=== PATIENT | female | born 1945 | race Caucasian/White ===

== ENCOUNTER 2017-03-16 17:16 | Observation (INO) ==
[2017-03-16] MEDS ORDERED: 0.9 % Sodium Chloride 1,000 ML IVC ONE (17:35)
--- NOTE | 2017-03-16 17:59 | Emergency Department Note ---
Disposition Clinical Impression: SOB (shortness of breath), Squamous cell carcinoma of left lung Disposition: Admitted As Inpatient Condition: Good General Adult HPI - General Chief complaint: ED Shortness of Breath/Dyspnea Stated complaint: "not breathing right" Time Seen by Provider: 03/16/17 17:22 Source: patient Mode of arrival: ambulatory Limitations: no limitations Nursing Notes Reviewed: Yes Vital Signs Reviewed: Yes - History of Present Illness HPI Narrative: 71-year-old female past medical history of lung cancer which is being managed by chemotherapy reports the emergency department for a 3 day history of having shortness of breath on exertion. Patient states that every time she takes a deep breath she feels a flutter in her chest. Patient denies being on any blood thinners. Patient denies having any recent surgeries. Patient denies any recent travel. Patient denies any history of blood clots, pain or swelling in her calves Pain Scale: 5 - Related Data Home Medications Medication Instructions Recorded Confirmed Acetaminophen [Tylenol] 500 mg PO Q6HR PRN 09/03/15 03/16/17 Aspirin 325 mg PO DAILY 09/03/15 03/16/17 Latanoprost [Xalatan] 1 drop RIGHT EYE HS 09/03/15 03/16/17 Previous Rx's Medication Instructions Recorded Loperamide [Imodium] 2 mg PO Q4HR PRN #90 capsule 10/28/16 Ondansetron [Zofran] 8 mg PO Q8HR PRN #90 tablet 10/28/16 OxyCODONE Immed Rel [Roxicodone 5 5 mg PO Q12H PRN #60 tablet 01/20/17 MG] LORazepam [Ativan] 0.5 mg PO AD PRN #2 tablet 02/08/17 Dexamethasone [Decadron] 4 mg PO BID #36 tab 03/03/17 Prochlorperazine Maleate 10 mg PO Q8HR PRN #90 tablet 03/03/17 [Compazine] Allergies Allergy/AdvReac Type Severity Reaction Status Date / Time Penicillins Allergy Hives Verified 03/16/17 17:20 Sulfa (Sulfonamide Allergy Hives Verified 03/16/17 17:20 Antibiotics) eggs Allergy See Uncoded 03/16/17 17:20 Comments dairy products AdvReac Flatulence Uncoded 03/16/17 17:20 All systems ED: reviewed and negative except as stated. Review of Systems: As Per HPI Constitutional: Denies: fever Cardiovascular: Reports: palpitations, dyspnea on exertion. Denies: chest pain Respiratory: Reports: dyspnea. Denies: cough, hemoptysis Genitourinary: Denies: urgency Musculoskeletal: Denies: back pain Integumentary: Denies: rash Neurological: Denies: headache Psychiatric: Reports: anxiety Past Medical History - Past Medical History Medical history: Reports: arthritis, cancer, GERD, migraine, other Psychiatric history: Reports: anxiety, depression, panic disorder - Social History Smoking Status: Current every day smoker Smokeless Tobacco Status: No Alcohol use: Reports: none Drug use: Reports: none Physical Exam General: Well Appearing 71-year-old female, in no acute distress, laughing, appearing pleasant Head: autraumatic, EOMI, no conjuncitval pallor, no scleral icterus, Mouth: oral mucous membranes moist Neck: neck soft, trachea midline Chest:: Equal chest wall rise Lungs: Normal lungs sounds bilaterally, no wheezes, no respiratory distress Heart: normal heart sounds, tachycardic rate and normal rhythm, Abdomen: soft, non-tender, no rigidity, no guarding, no rebdound tenderness Lower Extremities: no pedal edema, calves non-tender Integumentary: Skin warm, dry, and intact Neuro: Alert Psych: normal affect, normal mood - General Limitations: no limitations General appearance: alert, in no apparent distress Course Vital Signs Temperature 98.0 F 03/16/17 17:17 Pulse Rate 111 03/16/17 17:17 Respiratory Rate 18 03/16/17 17:17 Blood Pressure 112/62 03/16/17 17:17 O2 Sat by Pulse Oximetry 99 03/16/17 17:17 Temperature 98.5 F 03/17/17 07:33 Pulse Rate 85 03/17/17 07:33 Respiratory Rate 16 03/17/17 07:33 Blood Pressure 145/78 03/17/17 07:33 O2 Sat by Pulse Oximetry 97 03/17/17 07:41 Oxygen Delivery Oxygen Delivery Room Air Medical Decision Making - MDM Narrative Medical decision making narrative: 71-year-old female with past medical history of squamous cell carcinoma of the lung that is being managed by chemotherapy this is the emergency department with shortness of breath and tachycardia that was initially concerning for pulmonary embolus. CTA of the chest was obtained and did not reveal a pulmonary embolus however, CTA revealed evidence that her current lung carcinoma extended into the left hilum and obstructed several of the left upper lobe pulmonary arteries in the left upper lobe bronchus. Cardiothoracic surgery was called, and Dr. Reyes stated that this patient would not be a surgical candidate at this time as this is an unresectable tumor. Dr. Cano, the oncologist typing section chief was also consulted regarding the case. He stated that these findings are normal in the case of lung cancer and that he does not anticipate any need for acute interventions at this time. He did state it was reasonable to admit this patient to the hospital for observation overnight and that he and the oncology team will come by and see her in the morning. I admitted this patient to the hospitalist Dr. Eaton and he agreed to accept the admission of this patient. I discussed the plan with the patient and she agreed to be admitted. Patient was hemodynamically stable and not in any acute distress at time of discharge. Oxygen saturation was 97% on room air throughout her entire stay. Pulse was 93 at time of admission. Chest X-Ray 03/16/17 17:31 IMPRESSION: Left lung opacity is suspicious for atelectasis. Nodular densities of the left lung likely reflective of pulmonary nodules as seen on prior CT. D/ / 03/16/2017 18:02:06 Ernst Bryant MD / rose marie Interpreting Provider: Ernst Bryant MD Chest CTA 03/16/17 17:32 IMPRESSION: No evidence of pulmonary embolism. Stable large left upper lobe mass compatible with known lung carcinoma. The mass extends into the left hilum and obstructs several of the left upper lobe pulmonary arteries and the left upper lobe bronchus. Stable spiculated metastases within the remaining portion of the left lung. Stable small left effusion. D/ / 03/16/2017 19:36:56 Mack Fischer MD / rose marie Interpreting Provider: Mack Fischer MD Vital Signs Temperature 98.0 F 03/16/17 17:17 Pulse Rate 111 03/16/17 17:17 Respiratory Rate 18 03/16/17 17:17 Blood Pressure 112/62 03/16/17 17:17 O2 Sat by Pulse Oximetry 99 03/16/17 17:17 Temperature 98.4 F 03/16/17 23:44 Pulse Rate 93 03/16/17 23:44 Respiratory Rate 18 03/16/17 23:44 Blood Pressure 169/88 03/16/17 23:44 O2 Sat by Pulse Oximetry 94 03/16/17 23:44 Oxygen Delivery Oxygen Delivery Room Air - Medical Records Medical records reviewed: Yes I reviewed the patient's medical records. - Lab Data Lab results reviewed: Yes I reviewed the patient's lab results. Result diagrams: 03/17/17 04:15 03/17/17 04:15 Lab Results 03/16/17 03/16/17 03/16/17 Range/Units 18:23 18:23 18:23 WBC 7.3 (4.3-11.1) K/mcL RBC 4.16 (3.82-4.97) M/mcL Hgb 11.4 L (11.5-15.4) g/dL Hct 35.3 (35.3-44.9) % MCV 84.9 (83.0-100.0) fL MCH 27.4 L (28.0-33.3) pg MCHC 32.3 (31.6-35.5) g/dL RDW 14.5 (11.5-14.5) % Plt Count 566 H (140-400) K/mcL MPV 8.3 L (9.4-12.4) fL Immature Gran % 0.5 (0-4) % Seg Neutrophils % 85.8 % Lymphocytes % 12.8 % Monocytes % 0.8 % Eosinophils % 0.0 % Basophils % 0.1 % Neutrophils # 6.3 (1.6-8.9) K/mcL Lymphocytes # 0.9 (0.6-4.6) K/mcL Monocytes # 0.1 (0.0-1.3) K/mcL Eosinophils # 0.0 (0.0-0.6) K/mcL Basophils # 0.0 (0.0-0.2) K/mcL PT 12.2 H (9.4-12.1) Seconds INR 1.1 APTT 35.8 (26.0-36.0) Seconds Sodium 132 L (136-145) mEq/L Potassium 4.0 (3.5-4.5) mEq/L Chloride 98 (98-109) mEq/L Carbon Dioxide 24 (19-29) mEq/L BUN 7 (7-20) mg/dL Creatinine 0.51 L (0.57-1.11) mg/dL Est GFR ( Amer) > 60 (> 60) Est GFR (Non-Af Amer) > 60 (> 60) BUN/Creatinine Ratio 14 (6-26) Glucose 126 H (70-99) mg/dL Calculated Osmolality 274 L (280-300) Calcium 9.8 (8.6-10.8) mg/dL Troponin I (0-0.03) ng/mL B-Natriuretic Peptide (0-100) pg/mL 03/16/17 03/16/17 Range/Units 18:23 18:23 WBC (4.3-11.1) K/mcL RBC (3.82-4.97) M/mcL Hgb (11.5-15.4) g/dL Hct (35.3-44.9) % MCV (83.0-100.0) fL MCH (28.0-33.3) pg MCHC (31.6-35.5) g/dL RDW (11.5-14.5) % Plt Count (140-400) K/mcL MPV (9.4-12.4) fL Immature Gran % (0-4) % Seg Neutrophils % % Lymphocytes % % Monocytes % % Eosinophils % % Basophils % % Neutrophils # (1.6-8.9) K/mcL Lymphocytes # (0.6-4.6) K/mcL Monocytes # (0.0-1.3) K/mcL Eosinophils # (0.0-0.6) K/mcL Basophils # (0.0-0.2) K/mcL PT (9.4-12.1) Seconds INR APTT (26.0-36.0) Seconds Sodium (136-145) mEq/L Potassium (3.5-4.5) mEq/L Chloride (98-109) mEq/L Carbon Dioxide (19-29) mEq/L BUN (7-20) mg/dL Creatinine (0.57-1.11) mg/dL Est GFR ( Amer) (> 60) Est GFR (Non-Af Amer) (> 60) BUN/Creatinine Ratio (6-26) Glucose (70-99) mg/dL Calculated Osmolality (280-300) Calcium (8.6-10.8) mg/dL Troponin I 0.00 (0-0.03) ng/mL B-Natriuretic Peptide 86 (0-100) pg/mL - Radiology Data Radiology results reviewed: Yes I reviewed the patient's radiology results. - EKG Data EKG #1 EKG attestation: Yes I reviewed and interpreted this EKG. EKG results narrative: 17:31 Ventricular rate 102 bpm, TX interval 143 ms, QRS duration 190 ms, QT 330 ms, QTC 389 ms, normal axis. Sinus tachycardia with a ventricular rate of 102 bpm. There is evidence of a right bundle branch block. This electrocardiogram does not reveal any ST changes from a previous one performed on May 20, 2016. Attestation Statement - Attestation Attestation: I examined this patient and my medical decision-making was reviewed with the Resident Physician, Dr. Moya. I agree with the documented findings, disposition and treatment plan as described except to the extent set forth below. Pt is a 71 yo wf, hx squamous lung CA, has been managed by oncology at [facility] undergoing chemo for past 15 months. Pt reports that recent testing showed incr in size of L lung tumor, so is starting new chemo in next few days. Pt reports incr anxiety with recent information. Pt c/o incr SOB, but denies any CP/press. Pt with assocd anxiety. Pt arrives tachycardic and hypoxic on RA, and denies requiring O2 at home currently. I agree with PE findings as documented. Pt with incr risk factors for possible PE. Placed on suppl O2, CM/pulse ox and labs sent. EKG shows tachycardia, without ischemia. Labs sent. PCXR with L uper lobe opacity, c/w her lung CA. CTA chest shows no PE, but incr in size of tumor, and extends now into hilum which is causing compression of pulm aa and L bronchus. Case d/w CT surgery and oncology who will follow pt as inpt. Recommend admission and oncology consult. D/W hospitalist who accepted pt for admission.
[2017-03-16] MEDS ORDERED: *HR* LORazepam 0.5 MG TABLET PO ONE (18:07)
[2017-03-16 18:47] LABS: Basophils % 0.1 %; Hematocrit 35.3 % (35.3-44.9); Hemoglobin 11.4 g/dL (11.5-15.4); Immature Granulocytes % 0.5 % (0-4); Lymphocytes # 0.9 K/mcL (0.6-4.6); Lymphocytes % 12.8 %; Mean Corpuscular HGB Conc 32.3 g/dL (31.6-35.5); Mean Corpuscular Hemoglobin 27.4 pg (28.0-33.3); Mean Corpuscular Volume 84.9 fL (83.0-100.0); Mean Platelet Volume 8.3 fL (9.4-12.4); Monocytes # 0.1 K/mcL (0.0-1.3); Monocytes % 0.8 %; Neutrophils # 6.3 K/mcL (1.6-8.9); Platelet Count 566 K/mcL (140-400); Red Blood Count 4.16 M/mcL (3.82-4.97); Red Cell Distribution Width 14.5 % (11.5-14.5); Segmented Neutrophils % 85.8 %
[2017-03-16 18:52] LABS: INR 1.1; Prothrombin Time 12.2 Seconds (9.4-12.1)
[2017-03-16 18:54] LABS: Activated Partial Thrombo Time 35.8 Seconds (26.0-36.0)
[2017-03-16 18:57] LABS: BUN/Creatinine Ratio 14 (6-26); Blood Urea Nitrogen 7 mg/dL (7-20); Calcium 9.8 mg/dL (8.6-10.8); Carbon Dioxide 24 mEq/L (19-29); Chloride 98 mEq/L (98-109); Glucose 126 mg/dL (70-99); Osmolality,Calculated 274 (280-300); Sodium 132 mEq/L (136-145); eGFR For African Americans > 60 (> 60); eGFR For Non-African Americans > 60 (> 60)
[2017-03-16] MEDS ORDERED: *HR* OxyCODONE Immed Rel 5 MG TABLET PO PRN (23:45)
[2017-03-16] MEDS: Acetaminophen 325 MG TABLET PO PRN (23:55)
[2017-03-17] MEDS ORDERED: Naloxone 0.4 MG/ML INJ IVP PRN (03:20)
[2017-03-17] MEDS ORDERED: Albuterol 2.5 MG/3 ML NEBULIZER IH PRN (03:20)
[2017-03-17] MEDS ORDERED: *HR* OxyCODONE Immed Rel 5 MG TABLET PO PRN ×3 (03:25→07:56)
[2017-03-17] MEDS ORDERED: 0.9 % Sodium Chloride 1,000 ML IVC SCH (03:30)
--- NOTE | 2017-03-17 03:32 | Internal Med History&Physical ---
Date of Encounter: 03/17/17 Time of Encounter: 02:35 Assessment and Plan (1) SOB (shortness of breath) Current visit: Yes Status: Acute 1. Based upon history, this is a chronic and slowly worsening process. NO acute worsening according to patient on my assessment. 2. Will provide supportive measures with oxygen, aerosols, and steroids. 3. Consult oncology for assistance and guidance. 4. I do not appreciate any concern for or suspicion ofr pneumonia at the present time. Withhold antibiotics for now and will follow clinically. (2) Squamous cell carcinoma of left lung Current visit: Yes Status: Chronic 1. Consult oncology and defer to them for chemotherapy recommendations. 2. Patient has had ~ 35 # weight loss over the last year, likely related to cancer progression. 3. Patient is full code for now. Need to discuss with oncology regarding disease progression and possibility of advanced directives. (3) DVT prophylaxis Current visit: Yes Status: Acute 1. EPCD's. Internal Medicine - H&P: HPI Chief complaint: dyspnea Admitted From: Emergency Dept Plans for Post Hospital Care: Home History of present illness: Ms. Bond is a 71 year old female with a several week progressive complaint of dyspnea. She is undergoing chemotherapy for lung cancer. She has an appointment later today to see her oncologist for another change in her chemotherapy regimen. She had workup in the ER tonight including CT angiogram of chest, which ruled out a pulmonary embolus. She did have an enlarging tumor with encroachment to the pulmonary artery. She also was noted to have a small pleural effusion. I was contacted to admit patient for the above complaints. I also asked the ER staff to contact oncology and discuss with them as well. Patient has not had any hemoptysis or hematemesis. She has no oxygen requirement. Upon my assessment of the patient, she is asymptomatic and feels well. She reports occasional dyspnea which has been relatively unchanged the last several weeks. She denies any fevers, productive cough, chest pain, hemoptysis, hematemesis, chills, or night sweats. She has had weight loss over the last year and a half of about 30 pounds. Despite her lung cancer, she continues to smoke. Past Med Surg Social Fam HX - Past Medical History Attestation: Yes The following information was validated with the patient. Source: patient, old records reviewed Medical history: arthritis, cancer, GERD, migraine, other Psychiatric history: anxiety, depression, panic disorder - Past Surgical History Surgical History: vascular surgery - Social History Smoking Status: Current every day smoker Smokeless Tobacco Status: No Alcohol use: none Drug use: none Current living situation: Home, With Family Activity Level: Independent ambulation - Family History Mother Living Status: Father Living Status: - Additional Family History Additional family history: + h/o COPD Internal Medicine - H&P: Meds Acetaminophen [Tylenol] 500 mg PO Q6HR PRN 09/03/15 [History] Aspirin 325 mg PO DAILY 09/03/15 [History] Latanoprost [Xalatan] 1 drop RIGHT EYE HS 09/03/15 [History] Loperamide [Imodium] 2 mg PO Q4HR PRN #90 capsule 10/28/16 [Rx] Ondansetron [Zofran] 8 mg PO Q8HR PRN #90 tablet 10/28/16 [Rx] OxyCODONE Immed Rel [Roxicodone 5 MG] 5 mg PO Q12H PRN #60 tablet 01/20/17 [Rx] LORazepam [Ativan] 0.5 mg PO AD PRN #2 tablet 02/08/17 [Rx] Dexamethasone [Decadron] 4 mg PO BID #36 tab 03/03/17 [Rx] Prochlorperazine Maleate [Compazine] 10 mg PO Q8HR PRN #90 tablet 03/03/17 [Rx] 3 Allergy/AdvReac Type Severity Reaction Status Date / Time Penicillins Allergy Hives Verified 03/16/17 17:20 Sulfa (Sulfonamide Allergy Hives Verified 03/16/17 17:20 Antibiotics) eggs Allergy See Uncoded 03/16/17 17:20 Comments dairy products AdvReac Flatulence Uncoded 03/16/17 17:20 - Constitutional Constitutional: weight loss, no chills, no fever(s), no night sweats - EENT Eyes: no blurry vision, no change in vision Ears: no ear pain, no tinnitus Nose, mouth and throat: no nasal congestion, no sore throat, no throat swelling - Cardiovascular Cardiovascular ROS IM: no chest pain, no diaphoresis, no lightheadedness, no palpitations, no paroxysmal nocturnal dyspnea, no syncope - Respiratory Respiratory: dyspnea, dyspnea on exertion, wheezing, no cough, no hemoptysis, no chest congestion, no excessive phlegm production, no change in phlegm color, no pain with cough - Gastrointestinal Gastrointestinal: no abdominal pain, no hematemesis, no hematochezia, no melena , no vomiting - Genitourinary Genitourinary: no dysuria, no flank pain, no hematuria - Musculoskeletal Musculoskeletal ROS IM: no arthralgias, no back pain - Integumentary Integumentary IM: no rash, no jaundice - Neurological Neurological ROS: no focal weakness, no frequent falls, no headache(s) - Psychiatric Psychiatric: no anxiety, no depression - Endocrine Endocrine IM: no polydipsia, no polyuria - Hematologic/Lymphatic Hematologic/Lymphatic: no easy bruising, no lymphadenopathy - Allergic/Immunologic Allergic/Immunologic: wheezing, no GI upset with certain foods - Constitutional Vitals: Temp Pulse Resp BP Pulse Ox 98.4 F 93 18 169/88 94 03/16/17 23:44 03/16/17 23:44 03/16/17 23:44 03/16/17 23:44 03/16/17 23:44 General appearance: Present: cooperative, A&O X 3, pleasant, no acute distress, answers questions appropriately - Head Head exam: Present: atraumatic, normal inspection - Eye Eye exam: Present: EOMI, normal appearance, PERRL. Absent: scleral icterus Pupils: Present: normal accommodation - ENT ENT exam: Present: mucous membranes dry, normal exam - Neck Neck exam general surgery: Present: full ROM, supple, trachea midline. Absent: tenderness - Respiratory Respiratory exam: Present: decreased breath sounds (left base), prolonged expiratory phase, wheezes (rare wheezes). Absent: accessory muscle use, chest wall tenderness, rales, respiratory distress, rhonchi - Cardiovascular Cardiovascular exam: Present: RRR, +S1, +S2. Absent: diastolic murmur, JVD, systolic murmur - GI/Abdominal GI/Abdominal exam: Present: normal bowel sounds, soft. Absent: hepatomegaly, mass, splenomegaly, tenderness - Extremities Exam Extremities exam: Present: full ROM, warm. Absent: calf tenderness, joint swelling, pedal edema - Back Exam Back exam: Present: normal inspection. Absent: CVA tenderness (L), CVA tenderness (R) - Neurological Exam Neurological exam: Present: alert, oriented X3, no focal deficits, strengths equal and symetr throughout - Psychiatric Psychiatric exam: Present: normal affect, normal mood - Skin Skin exam: Present: dry, warm. Absent: rash Internal Med - H&P Results - Labs CBC & Chem 7: 03/16/17 18:23 03/16/17 18:23 - EKG Data -: EKG Interpreted by Myself - EKG Data EKG comments: 03/17/17 03:39 NSR; RBBB - Diagnostic Studies Chest x-ray Status: image reviewed by me (KELVIN mass/process)
[2017-03-17] MEDS ORDERED: Ipratropium/Albuterol Neb 3 ML IH SCH (04:00)
[2017-03-17 04:54] LABS: Hematocrit 32.9 % (35.3-44.9); Immature Granulocytes % 0.6 % (0-4); Lymphocytes # 1.6 K/mcL (0.6-4.6); Lymphocytes % 23.7 %; Mean Corpuscular HGB Conc 33.4 g/dL (31.6-35.5); Mean Corpuscular Hemoglobin 27.8 pg (28.0-33.3); Mean Corpuscular Volume 83.1 fL (83.0-100.0); Mean Platelet Volume 8.2 fL (9.4-12.4); Monocytes # 0.2 K/mcL (0.0-1.3); Monocytes % 3.5 %; Platelet Count 495 K/mcL (140-400); Red Blood Count 3.96 M/mcL (3.82-4.97); Red Cell Distribution Width 14.4 % (11.5-14.5); Segmented Neutrophils % 72.2 %
[2017-03-17 05:19] LABS: Alanine Aminotransferase 15 Units/L (0-55); Albumin 2.8 g/dL (3.5-5.0); Albumin/Globulin Ratio 0.7 (1.1-2.2); Alkaline Phosphatase 110 Units/L (38-126); Aspartate Amino Transferase 18 Units/L (5-34); BUN/Creatinine Ratio 14 (6-26); Bilirubin,Total 0.2 mg/dL (0.2-1.2); Blood Urea Nitrogen 7 mg/dL (7-20); Calcium 9.4 mg/dL (8.6-10.8); Carbon Dioxide 23 mEq/L (19-29); Chloride 100 mEq/L (98-109); Globulin 4.3 g/dL (2.4-3.5); Glucose 126 mg/dL (70-99); Magnesium 1.6 mg/dL (1.6-2.6); Osmolality,Calculated 274 (280-300); Sodium 132 mEq/L (136-145); Total Protein 7.1 g/dL (6.0-8.3); eGFR For African Americans > 60 (> 60); eGFR For Non-African Americans > 60 (> 60)
[2017-03-17] MEDS ORDERED: MethylPREDNISolone 40 MG/ML VIAL IVP SCH (06:00)
[2017-03-17 07:33] VITALS: BP 145/78
[2017-03-17] MEDS: Acetaminophen 325 MG TABLET PO PRN (07:38)
[2017-03-17] MEDS ORDERED: *HR* LORazepam 0.5 MG TABLET PO ONE (07:52)
[2017-03-17] MEDS ORDERED: Acetaminophen 325 MG TABLET PO PRN ×2 (07:54→07:55)
--- NOTE | 2017-03-17 08:08 | Discharge Summary ---
Date of Encounter: 03/17/17 Time of Encounter: 07:57 - Discharge Diagnosis (1) SOB (shortness of breath) Priority: Primary Status: Acute (2) Squamous cell carcinoma of left lung Priority: Secondary Status: Chronic (3) Anxiety Priority: Secondary Status: Chronic - Discharge Medications Home Medications: Acetaminophen [Tylenol] 500 mg PO Q6HR PRN 09/03/15 [History] Aspirin 325 mg PO DAILY 09/03/15 [History] Latanoprost [Xalatan] 1 drop RIGHT EYE HS 09/03/15 [History] Loperamide [Imodium] 2 mg PO Q4HR PRN #90 capsule 10/28/16 [Rx] Ondansetron [Zofran] 8 mg PO Q8HR PRN #90 tablet 10/28/16 [Rx] OxyCODONE Immed Rel [Roxicodone 5 MG] 5 mg PO Q12H PRN #60 tablet 01/20/17 [Rx] LORazepam [Ativan] 0.5 mg PO AD PRN #2 tablet 02/08/17 [Rx] Dexamethasone [Decadron] 4 mg PO BID #36 tab 03/03/17 [Rx] Prochlorperazine Maleate [Compazine] 10 mg PO Q8HR PRN #90 tablet 03/03/17 [Rx] Allergies/Adverse Reactions: 3 Allergy/AdvReac Type Severity Reaction Status Date / Time Penicillins Allergy Hives Verified 03/16/17 17:20 Sulfa (Sulfonamide Allergy Hives Verified 03/16/17 17:20 Antibiotics) eggs Allergy See Uncoded 03/16/17 17:20 Comments dairy products AdvReac Flatulence Uncoded 03/16/17 17:20 Procedures/tests Complete & Pending: Procedures Performed prior 72 hours Category Date Time Status ECG 12 lead ECG [ECG] AM 0600 Y 03/17/17 06:00 Ordered EV echocardiogram Routine Y 03/17/17 03:20 Ordered Date of admission: 03/16/17 22:26 Primary care physician: Jose Holley Jr, MD Consults: 03/17/17 00:59 Consult to Coater [CONS] Routine Reason for SW Consult: discharge-spouse is main caregiver, she requires a lot of help and would benefit HH. Sleeps on couch for upright position-hospital bed? No POA, directives but is interested. 03/17/17 01:01 Consult to Nutrition [CONS] Routine Comment: Consulting Provider: NUTRITION Reason for Dietary Consult: MST Score Other:: most foods taste "bitter" poor appetite 03/17/17 03:23 Consult to Physician [CONS] Routine Consulting Provider: Steven Cano Reason for Consult: lung cancer; increasing dyspnea Call Completed: Yes Discharging clinician: Hari Gonzalez Anticipated date of discharge: 03/17/17 - Patient Status Disposition: Home, Self-Care Condition: Good Functional capacity at discharge: independent ambulation Overall status at discharge: patient is back to baseline - Discharge Instructions Follow Up With: Jose Holley Jr, MD [Primary Care Provider] - 03/22/17 9:45 am (with follow up with Chantel Shetty CNP ) - Diet and Activity Activity: resume usual activities as tolerated Diet: regular diet Interval History: Ms. Bond is a 71 year old female with a several week progressive complaint of dyspnea. She is undergoing chemotherapy for lung cancer. She has an appointment later today to see her oncologist for another change in her chemotherapy regimen. She [facility] angiogram of chest, which ruled out a pulmonary embolus. She did have an enlarging tumor with encroachment to the pulmonary artery. She also was noted to have a small pleural effusion. Patient has not had any hemoptysis or hematemesis. She has no oxygen requirement. At my time of review, patient is asymptomatic and feels well. She reports occasional dyspnea which has been relatively unchanged the last several weeks. She denies any fevers, productive cough, chest pain, hemoptysis, hematemesis, chills, or night sweats. She has had weight loss over the last year and a half of about 30 pounds. Despite her lung cancer, she continues to smoke. Her work up in this "admission" has been unremarkable for new findings. Her CBC and Chem are at her baseline, hyponatremia is chronic and stable. troponin is negative, EKG is not ischemic. Chest CTA 03/16/17 17:32 IMPRESSION: No evidence of pulmonary embolism. Stable large left upper lobe mass compatible with known lung carcinoma. The mass extends into the left hilum and obstructs several of the left upper lobe pulmonary arteries and the left upper lobe bronchus. Stable spiculated metastases within the remaining portion of the left lung. Stable small left effusion. Oxygen saturation was 97% on room air throughout her entire stay. She was tachycardic in the ER, EKG showed sinus tachycardia and RBBB, non-specific T wave changes which re the same as her EKGs done 05/20/16. Patient is attributing it to anxiety. Pulse was 93 at time of admission. HEr blood pressure was within normal for age throughout admission. Her chest exam is unremarkable, no wheezing, stridor or rhonchi. The ER called Cardiothoracic surgery (Dr. Reyes) who stated that this patient would not be a surgical candidate at this time as this is an unresectable tumor. Dr. Cano, the oncologist building construction inspector was also consulted regarding the case. He stated that these findings are normal in the case of lung cancer and that he does not anticipate any need for acute interventions at this time. At this time, she is mainly concerned about her anxiety for which she receives ativan prior to CT scans/Imaging. She wants to be on Ativan retirement. She states it helps with her anxiety and eases her breathing when she is anxious. She also wants to be started on Megace for appetite stimulation Patient is otherwise ambulatory, clinically stable and there are currently no reasons to keep this patient in the hospital She has an appointment for chemotherapy this morning, at 9.30 and will be seeing her Oncologist Dr. Espitia this morning and tomorrow for changes in her chemotherapy regimen. We will discharge the patient on her home medications, tobacco cessation counselling done, and flu vaccine is recommended. I spoke wit Dr. Cano this morning, who called me to state he had categorically told the ER that the patient did not need to be admitted and they will like her to make her oncology appointment this morning, I informed him, I will be discharging the patient as there was no intervention planned. Plan of care is discussed with the patient who agrees with plan Return to ER in the event of worsening shortness of breath/Fever/hemoptysis/ Chest pain. Hospital course: See above. - Time Spent with Patient Total time spent providing and/or coordinating discharge services: Greater than 30 minutes - Constitutional Vitals: Temp Pulse Resp BP Pulse Ox 98.5 F 85 16 145/78 97 03/17/17 07:33 03/17/17 07:33 03/17/17 07:33 03/17/17 07:33 03/17/17 07:41 General appearance: Present: cooperative, A&O X 3, pleasant, no acute distress, answers questions appropriately - Head Head exam: Present: atraumatic, normocephalic - Eye Eye exam: Present: PERRL, conjuntiva pink, sclera anicteric Pupils: Present: PERRL - Neck Neck exam general surgery: Present: supple, trachea midline. Absent: lymphadenopathy - Respiratory Respiratory exam: Present: CTAB. Absent: accessory muscle use, rales, rhonchi, wheezes - Cardiovascular Cardiovascular exam: Present: RRR, +S1, +S2. Absent: diastolic murmur, gallop, rubs, systolic murmur - GI/Abdominal GI/Abdominal exam: Present: normal bowel sounds, soft, no peritoneal signs. Absent: distended, tenderness - Extremities Exam Extremities exam: Present: warm, radial pulses palpable and symmetrical. Absent : calf tenderness, cyanotic, pedal edema - Neurological Exam Neurological exam: Present: alert, CN II-XII intact, oriented X3, no focal deficits. Absent: pronater drift, facial droop, speech deficit - Skin Skin exam: Present: dry, intact
[2017-03-17] MEDS ORDERED: Aspirin 325 MG TABLET PO SCH (09:00)
[2017-03-17] MEDS ORDERED: Latanoprost 2.5 ML BOTTLE RIGHT EYE SCH (21:00)
--- NOTE | 2017-03-19 11:31 | Electrocardiograph Report ---
[place] [id number] Test Date: 2017-03-16 Pat Name: Tawanna Bond Department: 102 Room: 2A12 Gender: F System Administration Advisor: Ekp : 1945 Requested By: Colby Moya Order Number: [id number] Reading MD: Diane Longoria Measurements Intervals [place] Rate: 102 P: 28 [place]: 143 QRS: 53 QRSD: 119 T: 0 QT: 330 QTc: 389 Interpretive Statements SINUS TACHYCARDIA RIGHT BUNDLE BRANCH BLOCK Electronically Signed On 03-19-2017 11:29:54 EDT by Diane Longoria
== END 2017-03-17 09:00 | disposition home or self-care (01) ==
LOC: 2ANU 17:16 → EMEROO 17:16 → 2ANU 22:52
PROVIDERS: ADMIT Pediatrics; ATTEND Internal Medicine

== ENCOUNTER 2017-03-21 15:59 | Inpatient (IN) ==
[2017-03-21] MEDS ORDERED: *HR* HYDROmorphone (PF) 1 MG/ML SYRINGE IVP ONE (16:16)
[2017-03-21] MEDS ORDERED: 0.9 % Sodium Chloride 1,000 ML IVC ONE ×2 (16:16→18:43)
[2017-03-21] MEDS ORDERED: Ondansetron 4 MG/2 ML VIAL IVP ONE (16:16)
[2017-03-21] MEDS ORDERED: *HR* LORazepam 2 MG/ML VIAL IVP ONE (16:21)
--- NOTE | 2017-03-21 16:29 | Emergency Department Note ---
Disposition Clinical Impression: Squamous cell carcinoma of left lung, Small bowel obstruction, GILSON (acute kidney injury) Leukocytosis Qualifiers: Leukocytosis type: unspecified Qualified Code(s): D72.829 - Elevated white blood cell count, unspecified Disposition: Admitted As Inpatient Condition: Fair Referrals: Jose Holley Jr, MD [Primary Care Provider] - Forms: ED Satisfaction Letter Time of Disposition: 19:52 Nausea/Vomiting/Diarrhea HPI - General Chief complaint: ED Nausea/Vomiting/Diarrhea Stated complaint: dizzy/n/v Time Seen by Provider: 03/21/17 16:02 Source: patient Mode of arrival: EMS Limitations: no limitations Nursing Notes Reviewed: Yes Vital Signs Reviewed: Yes - History of Present Illness HPI Narrative: 71-year-old female presents to the ED for nausea vomiting, abdominal pain, fall and dizziness. Patient has history of stage III lung cancer and is currently getting chemotherapy. She has been doing it for a few months. She states she has not been nauseous or vomiting during the treatment until now. She says she has really bad diarrhea which shows multiple times a day and is like water, however she complains of no bloody diarrhea or bloody vomit. And there is no ileus vomit. She is complaining of very bad abdominal pain she says is diffuse now located in a certain area and nonradiating. She states that she did have a fall from standing position but it lowered to the ground onto her right side she was complaining a little bit of right hip pain. Patient states she has not been falling recently. She is complaining of chest pain or shortness of breath this time. She has had no fevers. Patient otherwise has no complaints. - Related Data Home Medications Medication Instructions Recorded Confirmed Acetaminophen [Tylenol] 500 mg PO Q6HR PRN 09/03/15 03/21/17 Aspirin 325 mg PO DAILY 09/03/15 03/21/17 Latanoprost [Xalatan] 1 drop RIGHT EYE HS 09/03/15 03/21/17 Previous Rx's Medication Instructions Recorded Loperamide [Imodium] 2 mg PO Q4HR PRN #90 capsule 10/28/16 Ondansetron [Zofran] 8 mg PO Q8HR PRN #90 tablet 10/28/16 OxyCODONE Immed Rel [Roxicodone 5 5 mg PO Q12H PRN #60 tablet 01/20/17 MG] LORazepam [Ativan] 0.5 mg PO AD PRN #2 tablet 02/08/17 Dexamethasone [Decadron] 4 mg PO BID #36 tab 03/03/17 Prochlorperazine Maleate 10 mg PO Q8HR PRN #90 tablet 03/03/17 [Compazine] Allergies Allergy/AdvReac Type Severity Reaction Status Date / Time Penicillins Allergy Hives Verified 03/16/17 17:20 Sulfa (Sulfonamide Allergy Hives Verified 03/16/17 17:20 Antibiotics) eggs Allergy See Uncoded 03/16/17 17:20 Comments dairy products AdvReac Flatulence Uncoded 03/16/17 17:20 Review of Systems: 10 point review of systems done and negative unless otherwise stated in history of present illness. All systems ED: reviewed and negative except as stated. Review of Systems: As Per [facility] Past Medical History - Past Medical History Attestation: Yes The following information was validated with the patient. Medical history: Reports: arthritis, cancer, GERD, migraine, other Surgical history: Reports: vascular surgery Psychiatric history: Reports: anxiety, depression, panic disorder - Social History Smoking Status: Current every day smoker Smokeless Tobacco Status: No Alcohol use: Reports: none Drug use: Reports: none Physical Exam - General Limitations: no limitations General appearance: alert - Head Head exam: atraumatic, normocephalic, normal inspection - Eye Eye exam: Present: normal appearance, PERRL, EOMI - ENT ENT exam: normal exam, normal oropharynx, mucous membranes moist - Neck Neck exam: Present: normal inspection, full ROM, trachea midline - Chest Chest inspection: Present: normal inspection, symmetric chest wall rise - Respiratory Respiratory exam: Present: normal lung sounds bilaterally - Cardiovascular Cardiovascular exam: Present: regular rate, normal rhythm, normal heart sounds - Abdominal Exam Abdominal exam: Present: soft, tenderness. Absent: distention, guarding, rebound, rigidity Abdominal tenderness: Present: diffuse, moderate - Extremities Exam Extremities exam: Present: normal inspection, full ROM. Absent: tenderness, pedal edema - Expanded Lower Extremity Exam Hip/Pelvis exam: Present: normal inspection, full ROM, pelvis stable. Absent: tenderness, ecchymosis, deformity - Back Exam Back exam: Present: normal inspection, full ROM. Absent: tenderness, CVA tenderness (R), CVA tenderness (L) - Neurological Exam Neurological exam: Present: alert, oriented X3 - Skin Skin exam: Present: warm, dry, intact, normal color Course Course Narrative: 71-year-old female presents the ED with history of lung cancer presents with nausea vomiting abdominal pain and fall. We will get basic labs including CBC, CMP, lactate, phosphorus and uric acid as well as a troponin. EKG. We will get a CT of the head chest and abdomen and pelvis. We will give her Zofran and IV fluids as well as Dilaudid for pain control. We will also give her IV fluids. Patient's okay at this plan. We will reevaluate once labs and imaging comes back. - Consultations Consultation #1: Spoke with oncology who recommended that we start Rasburicase I contacted pharmacy who stated they did not have it and recommended oncology try something else. I relayed this to the hospitalist. They also recommended starting allopurinol 300 mg twice a day. They will consult and see the patient tomorrow. Time: 19:07 Consultation #2: Spoke with surgery, Dr. Nagel who said he will consult and see the patient he just recommended IV antibiotics at this time. Time: 19:08 Vital Signs Temperature 98.4 F 03/21/17 16:00 Pulse Rate 101 03/21/17 16:00 Respiratory Rate 16 03/21/17 16:00 Blood Pressure 125/75 03/21/17 16:00 O2 Sat by Pulse Oximetry 98 03/21/17 16:00 Temperature 98.4 F 03/21/17 16:00 Pulse Rate 91 03/21/17 18:56 Respiratory Rate 16 03/21/17 18:56 Blood Pressure 136/83 03/21/17 18:56 O2 Sat by Pulse Oximetry 96 03/21/17 18:56 Oxygen Delivery Oxygen Delivery Nasal Cannula Nausea/Vomiting/Diarrhea - [facility] Narrative Medical decision making narrative: 71-year-old female presented to the ED with abdominal pain nausea vomiting and diarrhea. She has recently been admitted to the hospitalist there is worry about C. difficile. We did basic labs and she had a new leukocytosis from 4 days ago of 27,000 at this time we decided to start C. difficile precautions. We ordered a stool sample but she has yet to give once was. This can be followed in the inpatient service. Patient also has a new acute kidney injury with an elevated creatinine of 3 where 4 days ago it was 0.5. Patient also has an elevated uric acid and phosphate there is worry about tumor lysis syndrome so we gave 20 mg of Decadron. I did consult oncology who recommended we start allopurinol 3 mg twice a day and rasburicase. I contacted pharmacy and they do not have that medication. We will give the allopurinol here. She also had a CT which had many abnormalities. He can read the report below. But it sounds that she has possible obstruction or possible mesenteric ischemia. The surgeon was called and he knows of the reading and says that he will see the patient and given his recommendations. Patient has been given 2 L of fluid. Patient was also we did blood cultures and started on Flagyl and Levaquin as she had a penicillin allergy. This is for her intra-abdominal possibility of infection. Patient will be admitted to the hospital service for further evaluation. Patient is okay with this plan. Patient is admitted in stable condition.] Abdomen/Pelvis CT 03/21/17 16:18 IMPRESSION: 1. Branching linear lucencies in the periphery of the liver. Differential includes portal venous gas and pneumobilia. Based on the location, this is favored to represent portal venous gas which can be associated with multiple causes, including ischemic bowel, bowel obstruction, ileus, intra-abdominal sepsis (no identifiable source in this case). 2. Multiple dilated loops of small bowel measuring up to 3.6 cm. Differential includes early small bowel obstruction versus developing ileus. Colon and distal small bowel are relatively decompressed. 3. Masslike consolidation in the left upper lobe with endobronchial filling defect compatible with known lung cancer. Stable appearance of left lung nodule and ground-glass nodule, probably satellite lesions. 4. Interval increase in size of previously seen multiloculated cystic mass in the right hemipelvis, probably associated with the ovary. 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 5. Fluid in the esophageal lumen. This is suggestive of some degree of reflux and/or esophageal dysmotility. Findings were discussed with Andrea Lee at 6:38 pm on 03/21/2017. D/ / 03/21/2017 18:48:30 Sarkis Dunn MD / tati Interpreting Provider: Sarkis Dunn MD Chest CT 03/21/17 16:19 IMPRESSION: 1. Branching linear lucencies in the periphery of the liver. Differential includes portal venous gas and pneumobilia. Based on the location, this is favored to represent portal venous gas which can be associated with multiple causes, including ischemic bowel, bowel obstruction, ileus, intra-abdominal sepsis (no identifiable source in this case). 2. Multiple dilated loops of small bowel measuring up to 3.6 cm. Differential includes early small bowel obstruction versus developing ileus. Colon and distal small bowel are relatively decompressed. 3. Masslike consolidation in the left upper lobe with endobronchial filling defect compatible with known lung cancer. Stable appearance of left lung nodule and ground-glass nodule, probably satellite lesions. 4. Interval increase in size of previously seen multiloculated cystic mass in the right hemipelvis, probably associated with the ovary. 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 5. Fluid in the esophageal lumen. This is suggestive of some degree of reflux and/or esophageal dysmotility. Findings were discussed with Andrea Lee at 6:38 pm on 03/21/2017. D/ / 03/21/2017 18:48:30 Sarkis Dunn MD / tati Interpreting Provider: Sarkis Dunn MD Head CT 03/21/17 16:19 IMPRESSION: No acute intracranial abnormality. D/ / Syd Cardozo MD / Syd Cardozo MD Interpreting Provider: Syd Cardozo MD Pelvis X-Ray 03/21/17 16:19 IMPRESSION: 1. No acute osseous finding in the pelvis. 2. Multiple gas-filled loops of small bowel, only partially seen on this exam. If patient has associated abdominal symptoms, consider dedicated abdominal radiograph. D/ / 03/21/2017 16:38:16 Sarkis Dunn MD / tati Interpreting Provider: Sarkis Dunn MD - Medical Records Medical records reviewed: Yes I reviewed the patient's medical records. - Lab Data Lab results reviewed: Yes I reviewed the patient's lab results. Result diagrams: 03/21/17 16:24 03/21/17 16:24 Lab Results 03/21/17 03/21/17 03/21/17 Range/Units 16:24 16:24 16:24 WBC 27.5 H D (4.3-11.1) K/mcL RBC 5.15 H (3.82-4.97) M/mcL Hgb 14.3 D (11.5-15.4) g/dL Hct 41.7 (35.3-44.9) % MCV 81.0 L (83.0-100.0) fL MCH 27.8 L (28.0-33.3) pg MCHC 34.3 (31.6-35.5) g/dL RDW 14.5 (11.5-14.5) % Plt Count 689 H (140-400) K/mcL MPV 8.2 L (9.4-12.4) fL Seg Neutrophils % 72.0 % Band Neutrophils % 12.0 H (0-4) % Lymphocytes % 14.0 % Monocytes % 2.0 % Neutrophils # 23.1 H (1.6-8.9) K/mcL Lymphocytes # 3.9 (0.6-4.6) K/mcL Monocytes # 0.6 (0.0-1.3) K/mcL Platelet Estimate Marked Increase H (Normal) Sodium 125 L (136-145) mEq/L Potassium 4.1 (3.5-4.5) mEq/L Chloride 67 L (98-109) mEq/L Carbon Dioxide 30 H (19-29) mEq/L BUN 60 H (7-20) mg/dL Creatinine 3.35 H (0.57-1.11) mg/dL Est GFR ( Amer) 16 L (> 60) Est GFR (Non-Af Amer) 14 L (> 60) BUN/Creatinine Ratio 18 (6-26) Glucose 144 H (70-99) mg/dL Calculated Osmolality 279 L (280-300) Lactic Acid (0.5-2.2) mmol/L Uric Acid 12.9 H (2.6-6.0) mg/dL Calcium 10.0 (8.6-10.8) mg/dL Phosphorus 8.5 H (2.3-4.7) mg/dL Total Bilirubin 1.0 (0.2-1.2) mg/dL AST 28 (5-34) Units/L ALT 36 (0-55) Units/L Alkaline Phosphatase 148 H (38-126) Units/L Troponin I 0.03 (0-0.03) ng/mL Serum Total Protein 8.4 H (6.0-8.3) g/dL Albumin 3.8 (3.5-5.0) g/dL Globulin 4.6 H (2.4-3.5) g/dL Albumin/Globulin Ratio 0.8 L (1.1-2.2) Lipase 24 (8-78) Units/L 03/21/17 Range/Units 16:35 WBC (4.3-11.1) K/mcL RBC (3.82-4.97) M/mcL Hgb (11.5-15.4) g/dL Hct (35.3-44.9) % MCV (83.0-100.0) fL MCH (28.0-33.3) pg MCHC (31.6-35.5) g/dL RDW (11.5-14.5) % Plt Count (140-400) K/mcL MPV (9.4-12.4) fL Seg Neutrophils % % Band Neutrophils % (0-4) % Lymphocytes % % Monocytes % % Neutrophils # (1.6-8.9) K/mcL Lymphocytes # (0.6-4.6) K/mcL Monocytes # (0.0-1.3) K/mcL Platelet Estimate (Normal) Sodium (136-145) mEq/L Potassium (3.5-4.5) mEq/L Chloride (98-109) mEq/L Carbon Dioxide (19-29) mEq/L BUN (7-20) mg/dL Creatinine (0.57-1.11) mg/dL Est GFR ( Amer) (> 60) Est GFR (Non-Af Amer) (> 60) BUN/Creatinine Ratio (6-26) Glucose (70-99) mg/dL Calculated Osmolality (280-300) Lactic Acid 2.1 (0.5-2.2) mmol/L Uric Acid (2.6-6.0) mg/dL Calcium (8.6-10.8) mg/dL Phosphorus (2.3-4.7) mg/dL Total Bilirubin (0.2-1.2) mg/dL AST (5-34) Units/L ALT (0-55) Units/L Alkaline Phosphatase (38-126) Units/L Troponin I (0-0.03) ng/mL Serum Total Protein (6.0-8.3) g/dL Albumin (3.5-5.0) g/dL Globulin (2.4-3.5) g/dL Albumin/Globulin Ratio (1.1-2.2) Lipase (8-78) Units/L - Radiology Data Radiology results reviewed: Yes I reviewed the patient's radiology results. - EKG Data EKG attestation: Yes I reviewed and interpreted this EKG. EKG results narrative: EKG done at 16 oh sorry myself and attending shows sinus tachycardia with short LA interval at a rate of 101, LA interval 112, QRS 123 QTC 4:15 and a normal axis. She does have a right bundle-branch block. There is no acute ST changes. No acute T-wave changes. There is no signs of any heart strain or hypertrophy. This is compared with an old EKG on 03/16/17 which also shows the old right bundle-branch block but no other acute changes. Critical Care Time Critical Care Time: Yes Total Critical Care Time: 45 Attestation: Critical care performed: Time is exclusive of separately billable procedures. Time includes: direct patient care, patient reassessment, coordination of patient care, interpretation of data (laboratory data, radiology data, and respiratory data), review of patient's medical records, medical consultation and documentation of patient care. Procedures included in critical care time: Procedures excluded from critical care time: Attestation Statement - Attestation Attestation: I, Richard Gauthier DO, examined this patient [id number] and my medical decision-making was reviewed with Dr. Andrea Lee, Resident Physician. I agree with the documented findings, disposition and treatment plan as described except to the extent set forth below. Please see my progress notes for details. 71-year-old female with known lung cancer presents emergency room complaining of generalized malaise dehydration and inability to eat or drink and diffuse watery diarrhea. Patient is also describing abdominal discomfort and pain. She is currently in chemotherapy treatment. Patient will be evaluated for tumor lysis syndrome, Clostridium difficile,, cancer related issues or symptoms. Vital signs reviewed and patient is tachycardic and afebrile. Blood pressure stable. For evaluation of a steroid to her vascular port. Lungs are clear at this time. Patient has very poor skin turgor and is very pale of presentation. Abdomen is soft nontender nondistended patient describes flatulence and discomfort. Patient will have detailed workup including fluid hydration, nausea medication, pain medication as needed. CT imaging of the chest and abdomen as well as had to be ordered. Patient will have detailed laboratory completed looking for infectious pathology as well as cardiac insertion. Disposition will be admission to hospital for definitive management. See detailed documentation of physical exam medical intervention, medical decision-making disposition is physician's note. Initial EKG shows sinus tachycardia with no specific abnormality. Patient will have critical care management applied at this time. Renal function is significantly worse today at 3.31. Patient is awake, 25,000. We will continue to monitor his treatment course is completed. Patient has multiple medical issues including a large lower abdominal mass and distended bowel. No signs of acute obstruction but there is concern for possible obstruction versus ischemic gut secondary to pneumobilia. Patient will require admission. Information is conveyed onto the family. Consultation placed to oncology as well as surgery for recommendations. Patient is clinically stable. Will continue to monitor him until admission process is completed. Critical care participation secondary to multiple confounding medical issues and interventions.
[2017-03-21 16:33] LABS: Red Cell Distribution Width 14.5 % (11.5-14.5)
[2017-03-21 16:35] LABS: Hematocrit 41.7 % (35.3-44.9); Hemoglobin 14.3 g/dL (11.5-15.4); Mean Corpuscular HGB Conc 34.3 g/dL (31.6-35.5); Mean Corpuscular Hemoglobin 27.8 pg (28.0-33.3); Mean Platelet Volume 8.2 fL (9.4-12.4); Platelet Count 689 K/mcL (140-400); Red Blood Count 5.15 M/mcL (3.82-4.97)
[2017-03-21 16:59] LABS: Lymphocytes # 3.9 K/mcL (0.6-4.6); Monocytes # 0.6 K/mcL (0.0-1.3); Neutrophils # 23.1 K/mcL (1.6-8.9)
[2017-03-21 17:00] LABS: Platelet Estimate Marked Increase (Normal)
[2017-03-21 17:01] LABS: Albumin 3.8 g/dL (3.5-5.0); Albumin/Globulin Ratio 0.8 (1.1-2.2); Globulin 4.6 g/dL (2.4-3.5); Phosphorous 8.5 mg/dL (2.3-4.7); Potassium 4.1 mEq/L (3.5-4.5); Total Protein 8.4 g/dL (6.0-8.3); Uric Acid 12.9 mg/dL (2.6-6.0)
[2017-03-21] MEDS ORDERED: *HR* Promethazine 25 MG/ML VIAL IVP ONE (17:52)
[2017-03-21] MEDS ORDERED: Dexamethasone 4 MG/ML VIAL IVP ONE (18:43)
[2017-03-21] MEDS ORDERED: Levofloxacin 750 MG/150 ML 750 MG/150 ML BAG IVPB ONE (19:03)
[2017-03-21] MEDS ORDERED: MetroNIDAZOLE 500 MG/100 ML 500 MG/100 ML BAG IVPB ONE (19:03)
--- NOTE | 2017-03-21 20:05 | General Surgery Consult Note ---
Date of Encounter: 03/21/17 Time of Encounter: 19:45 Assessment and Plan (1) Abnormal CT scan, liver Current Visit: Yes Status: Acute The patient appears to have a small amount of portal gas. There are also some gas bubbles in the mucosa of the stomach. I see no evidence of toxic megacolon. I see no evidence of submucosal gas in the small bowel. She has a negative physical examination the abdomen. At this point I would recommend antibiotics and aggressive hydration and supportive renal function. Glad to follow along with you History of Present Illness Consult date: 03/21/17 Reason for consult: other (Abnormal CAT scan) History of present illness: The patient is a 71-year-old female with known lung cancer who is receiving chemotherapy. Her last chemotherapy was 1 week ago. The patient developed profound nausea and vomiting and diarrhea that has been persistent for almost a week. She complains of mild abdominal discomfort but mainly nausea. She sought evaluation in the emergency department was found to have acute kidney injury, acute dehydration, and abnormal CAT scan of the chest abdomen and pelvis. On history the patient is not complaining of any abdominal pain only nausea. Her last diarrhea bowel movement was several hours ago. She denies bright red rectal bleeding. She denies vomiting blood. Patient underwent CAT scan of the chest abdomen and pelvis. I personally reviewed the films. She has a lung mass consistent with a primary this currently under treatment. Abdominal examination demonstrates diffuse ileus pattern there are some dots of air in the gastric wall and dots of air in the portal venous system. I do not see any air in the colon wall. There is no evidence of toxic megacolon or colonic dilatation. The patient has a very large pelvic mass. I do not see any signs of free intraperitoneal air or perforation. On examination the abdominal exam is completely benign with no evidence of guarding or rebound. Past Med Surg Social Fam HX - Past Medical History Medical history: arthritis, cancer, GERD, migraine, other Psychiatric history: anxiety, depression, panic disorder - Past Surgical History Surgical History: vascular surgery - Social History Smoking Status: Current every day smoker Smokeless Tobacco Status: No Alcohol use: none Drug use: none - Family History Mother Living Status: Father Living Status: Medications and Allergies Acetaminophen [Tylenol] 500 mg PO Q6HR PRN 09/03/15 [History] Aspirin 325 mg PO DAILY 09/03/15 [History] Latanoprost [Xalatan] 1 drop RIGHT EYE HS 09/03/15 [History] Loperamide [Imodium] 2 mg PO Q4HR PRN #90 capsule 10/28/16 [Rx] Ondansetron [Zofran] 8 mg PO Q8HR PRN #90 tablet 10/28/16 [Rx] OxyCODONE Immed Rel [Roxicodone 5 MG] 5 mg PO Q12H PRN #60 tablet 01/20/17 [Rx] LORazepam [Ativan] 0.5 mg PO AD PRN #2 tablet 02/08/17 [Rx] Dexamethasone [Decadron] 4 mg PO BID #36 tab 03/03/17 [Rx] Prochlorperazine Maleate [Compazine] 10 mg PO Q8HR PRN #90 tablet 03/03/17 [Rx] 3 Allergy/AdvReac Type Severity Reaction Status Date / Time Penicillins Allergy Hives Verified 03/16/17 17:20 Sulfa (Sulfonamide Allergy Hives Verified 03/16/17 17:20 Antibiotics) eggs Allergy See Uncoded 03/16/17 17:20 Comments dairy products AdvReac Flatulence Uncoded 03/16/17 17:20 Review of Systems All systems PM: A 10-system review of systems was performed and is negative for pertinent findings except as documented above in the HPI. General Surgery Exam Initial Vital Signs Temp Pulse Resp BP Pulse Ox 98.4 F 101 16 125/75 98 03/21/17 16:00 03/21/17 16:00 03/21/17 16:00 03/21/17 16:00 03/21/17 16:00 - General physical appearance cachectic, chronically ill, other (Pale and frail) - Eyes other (sunken eye sockets consistent with dehydration) - Respiratory wheezing: bilateral (Decreased breath sounds bilaterally) - Cardiovascular Cardiovascular exam: Present: RRR, tachycardia, no murmurs/rubs/gallops - Abdomen Abdomen general surgery: Present: bowel sounds present (Mild diffuse tenderness with no rebound or guarding) - Integumentary Integumentary general surgery: Present: diaphoresis, other (Pale) - Neurologic Present: CN 2-12 grossly intact, normal coordination, normal sensation - Psychiatric Psychiatric general surgery: Present: appropriate, oriented to person, oriented to place, oriented to time, speech is normal, memory intact Exam Initial Vital Signs Temp Pulse Resp BP Pulse Ox 98.4 F 101 16 125/75 98 03/21/17 16:00 03/21/17 16:00 03/21/17 16:00 03/21/17 16:00 03/21/17 16:00 Results - Labs 03/21/17 16:24 11 16:24 Abnormal lab results WBC 27.5 K/mcL (4.3-11.1) H D 03/21/17 16:24 RBC 5.15 M/mcL (3.82-4.97) H 03/21/17 16:24 MCV 81.0 fL (83.0-100.0) L 03/21/17 16:24 MCH 27.8 pg (28.0-33.3) L 03/21/17 16:24 Plt Count 689 K/mcL (140-400) H 03/21/17 16:24 MPV 8.2 fL (9.4-12.4) L 03/21/17 16:24 Band Neutrophils % 12.0 % (0-4) H 03/21/17 16:24 Neutrophils # 23.1 K/mcL (1.6-8.9) H 03/21/17 16:24 Platelet Estimate Marked Increase (Normal) H 03/21/17 16:24 Sodium 125 mEq/L (136-145) L 03/21/17 16:24 Chloride 67 mEq/L (98-109) L 03/21/17 16:24 Carbon Dioxide 30 mEq/L (19-29) H 03/21/17 16:24 BUN 60 mg/dL (7-20) H 03/21/17 16:24 Creatinine 3.35 mg/dL (0.57-1.11) H 03/21/17 16:24 Est GFR ( Amer) 16 (> 60) L 03/21/17 16:24 Est GFR (Non-Af Amer) 14 (> 60) L 03/21/17 16:24 Glucose 144 mg/dL (70-99) H 03/21/17 16:24 Calculated Osmolality 279 (280-300) L 03/21/17 16:24 Uric Acid 12.9 mg/dL (2.6-6.0) H 03/21/17 16:24 Phosphorus 8.5 mg/dL (2.3-4.7) H 03/21/17 16:24 Alkaline Phosphatase 148 Units/L (38-126) H 03/21/17 16:24 Serum Total Protein 8.4 g/dL (6.0-8.3) H 03/21/17 16:24 Globulin 4.6 g/dL (2.4-3.5) H 03/21/17 16:24 Albumin/Globulin Ratio 0.8 (1.1-2.2) L 03/21/17 16:24 Diabetes panel 03/21/17 Range/Units 16:24 Sodium 125 L (136-145) mEq/L Potassium 4.1 (3.5-4.5) mEq/L Chloride 67 L (98-109) mEq/L Carbon Dioxide 30 H (19-29) mEq/L BUN 60 H (7-20) mg/dL Creatinine 3.35 H (0.57-1.11) mg/dL Glucose 144 H (70-99) mg/dL Calcium 10.0 (8.6-10.8) mg/dL AST 28 (5-34) Units/L ALT 36 (0-55) Units/L Alkaline Phosphatase 148 H (38-126) Units/L Albumin 3.8 (3.5-5.0) g/dL Calcium panel 03/21/17 Range/Units 16:24 Calcium 10.0 (8.6-10.8) mg/dL Phosphorus 8.5 H (2.3-4.7) mg/dL Albumin 3.8 (3.5-5.0) g/dL Pituitary panel 03/21/17 Range/Units 16:24 Sodium 125 L (136-145) mEq/L Potassium 4.1 (3.5-4.5) mEq/L Chloride 67 L (98-109) mEq/L Carbon Dioxide 30 H (19-29) mEq/L BUN 60 H (7-20) mg/dL Creatinine 3.35 H (0.57-1.11) mg/dL Glucose 144 H (70-99) mg/dL Calcium 10.0 (8.6-10.8) mg/dL Adrenal panel 03/21/17 Range/Units 16:24 Sodium 125 L (136-145) mEq/L Potassium 4.1 (3.5-4.5) mEq/L Chloride 67 L (98-109) mEq/L Carbon Dioxide 30 H (19-29) mEq/L BUN 60 H (7-20) mg/dL Creatinine 3.35 H (0.57-1.11) mg/dL Glucose 144 H (70-99) mg/dL Calcium 10.0 (8.6-10.8) mg/dL Total Bilirubin 1.0 (0.2-1.2) mg/dL AST 28 (5-34) Units/L ALT 36 (0-55) Units/L Alkaline Phosphatase 148 H (38-126) Units/L Albumin 3.8 (3.5-5.0) g/dL All other labs normal. - Imaging CT scan - abdomen: image reviewed (I personally reviewed the CAT scan of the chest and abdomen as well as pelvis with findings documented in the history of present illness) Consult Discharge Plan - Plan Referrals: Jose Holley Jr, MD [Primary Care Provider] -
[2017-03-21] MEDS ORDERED: Naloxone 0.4 MG/ML INJ IVP PRN (20:43)
[2017-03-21] MEDS ORDERED: 0.9 % Sodium Chloride 1,000 ML IVC SCH (20:45)
--- NOTE | 2017-03-21 20:53 | Internal Med History&Physical ---
<Khris Quevedo - Last Filed: 03/21/17 21:17> Date of Encounter: 03/21/17 Time of Encounter: 20:51 Assessment and Plan (1) Ileus, unspecified Current visit: Yes Status: Acute Nausea and vomiting for one week with intermittent watery diarrhea. CT reveals portal venous gas likely representing ileus, no evidence of toxic megacolon. Leukocytosis with a white count of 27.5, lactic acid 2.1 Abdominal exam is benign, the patient has not vomited since receiving antiemetics in the ED Continue Flagyl and Levaquin Continue antiemetics, Zofran 4 mg every 8 hours Aggressive hydration 0.9% normal saline at 175 mL per hour Dilaudid 1 mg IV push every 4 hours when necessary for pain Remain nothing by mouth; consider NG tube should nausea and vomiting return Consults surgery-Dr. Valentine has seen the patient, no urgent surgical needs at this time His recommendation is to continue with antibiotics and hydration CBC, CMP, mag and phosphorus in the morning Continuous telemetry, continuous SPO2 monitoring (2) Leukocytosis Current visit: Yes Status: Acute See plan above Qualifiers: Leukocytosis type: unspecified Qualified Code(s): D72.829 - Elevated white blood cell count, unspecified (3) GILSON (acute kidney injury) Current visit: Yes Status: Acute GILSON, 1 week history of nausea vomiting and diarrhea, patient appears severely dehydrated. Last episode of vomiting was this evening while in the emergency department for antiemetics given. Last episode of diarrhea was early this afternoon. Baseline creatinine 0.5 today creatinine 3.35. 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 Follows with obtain oncology. Still undergoing chemotherapy. Last chemotherapy session was 1 week ago. (5) Anxiety Current visit: Yes Status: Chronic Patient is nothing by mouth due to nausea and vomiting. Change oral Ativan to IV Ativan half a milligram IV push 3 times a day when necessary (6) DVT prophylaxis Current visit: Yes Status: Acute Heparin 5000 units subcutaneous every 12 hours Internal Medicine - H&P: HPI Chief complaint: N/V/D, ABDOMINAL PAIN Admitted From: Home Plans for Post Hospital Care: Home History of present illness: Ms. Bond is a 71 year old female with a PMH of arthritis, GERD, migraines, anxiety and depression. She has left lung squamous cell carcinoma and is currently undergoing chemotherapy. Most recent chemotherapy was last week. She presents with a one-week history of pain, nausea vomiting and diarrhea. She reports having multiple episodes of watery diarrhea daily over the last week. Denies any melena or hematochezia. Additionally reports to episodes of vomiting but denies any bilious vomiting or hematemesis. States abdominal pain is intermittent and is currently a 2/10. Lab work reveals leukocytosis with white count 27.5, CT of abdomen reveals portal venous gas likely secondary to ileus. Past Med Surg Social Fam HX - Past Medical History Medical history: arthritis, cancer, GERD, migraine, other Psychiatric history: anxiety, depression, panic disorder - Past Surgical History Surgical History: vascular surgery - Social History Smoking Status: Current every day smoker Smokeless Tobacco Status: No Alcohol use: none Drug use: none - Family History Mother Living Status: Father Living Status: Internal Medicine - H&P: Meds Acetaminophen [Tylenol] 500 mg PO Q6HR PRN 09/03/15 [History] Aspirin 325 mg PO DAILY 09/03/15 [History] Latanoprost [Xalatan] 1 drop RIGHT EYE HS 09/03/15 [History] Loperamide [Imodium] 2 mg PO Q4HR PRN #90 capsule 10/28/16 [Rx] Ondansetron [Zofran] 8 mg PO Q8HR PRN #90 tablet 10/28/16 [Rx] OxyCODONE Immed Rel [Roxicodone 5 MG] 5 mg PO Q12H PRN #60 tablet 01/20/17 [Rx] LORazepam [Ativan] 0.5 mg PO AD PRN #2 tablet 02/08/17 [Rx] Dexamethasone [Decadron] 4 mg PO BID #36 tab 03/03/17 [Rx] Prochlorperazine Maleate [Compazine] 10 mg PO Q8HR PRN #90 tablet 03/03/17 [Rx] 3 Allergy/AdvReac Type Severity Reaction Status Date / Time Penicillins Allergy Hives Verified 03/16/17 17:20 Sulfa (Sulfonamide Allergy Hives Verified 03/16/17 17:20 Antibiotics) eggs Allergy See Uncoded 03/16/17 17:20 Comments dairy products AdvReac Flatulence Uncoded 03/16/17 17:20 All Systems PM: A 10-system review of systems was performed and is negative for pertinent findings except as documented above in the HPI. - Constitutional Constitutional: fatigue, weakness, no chills, no excessive sweating, no fever(s) - Cardiovascular Cardiovascular ROS IM: no chest pain, no dyspnea, no dyspnea on exertion, no edema, no irregular heart rhythm, no lightheadedness, no palpitations - Respiratory Respiratory: no cough, no dyspnea, no dyspnea on exertion, no wheezing, no pain on inspiration - Gastrointestinal Gastrointestinal: as per HPI, abdominal pain, diarrhea, nausea, vomiting, no coffee ground emesis, no hematemesis, no hematochezia Additional comments: NO bilious vomiting - Genitourinary Genitourinary: no dysuria, no flank pain, no hematuria - Neurological Neurological ROS: no dizziness, no headache(s), no numbness, no tingling - Constitutional Vitals: Temp Pulse Resp BP Pulse Ox 98.4 F 90 24 134/78 95 03/21/17 16:00 03/21/17 20:00 03/21/17 20:44 03/21/17 20:44 03/21/17 20:00 General appearance: Present: cooperative, mild distress, A&O X 3, answers questions appropriately - Respiratory Respiratory exam: Present: CTAB. Absent: accessory muscle use, rales, rhonchi, wheezes - Cardiovascular Cardiovascular exam: Present: RRR, +S1, +S2. Absent: diastolic murmur, gallop, rubs, systolic murmur - GI/Abdominal GI/Abdominal exam: Present: normal bowel sounds, soft, tenderness (Mild tenderness RUQ). Absent: distended, firm, guarding, hepatomegaly, hypoactive bowel sounds, rebound, rigid, splenomegaly - Expanded GI/Abdominal Exam GI/Abdominal exam expanded: Absent: ascites - Extremities Exam Extremities exam: Present: warm, radial pulses palpable and symmetrical. Absent : calf tenderness, cyanotic, pedal edema - Neurological Exam Neurological exam: Present: CN II-XII intact, oriented X3, no focal deficits. Absent: pronater drift, facial droop, speech deficit - Psychiatric Psychiatric exam: Present: anxious - Skin Skin exam: Present: dry, intact Internal Med - H&P Results - Labs CBC & Chem 7: 03/21/17 16:24 03/21/17 16:24 - EKG Data -: EKG Interpreted by Myself EKG shows normal: sinus rhythm Rate: tachycardia - EKG Data EKG comments: 03/21/17 20:59 Sinus tachycardia with right bundle branch block - Diagnostic Studies Other Images Status: image reviewed by me Additional comments: Branching linear lucencies in the periphery of the liver. Differential includes portal venous gas and pneumobilia. Based on the location, this is favored to represent portal venous gas which can be associated with multiple causes, including ischemic bowel, bowel obstruction, ileus, intra-abdominal sepsis (no identifiable source in this case). 2. Multiple dilated loops of small bowel measuring up to 3.6 cm. Differential includes early small bowel obstruction versus developing ileus. Colon and distal small bowel are relatively decompressed. 3. Masslike consolidation in the left upper lobe with endobronchial filling defect compatible with known lung cancer. Stable appearance of left lung nodule and ground-glass nodule, probably satellite lesions. 4. Interval increase in size of previously seen multiloculated cystic mass in the right hemipelvis, probably associated with the ovary. 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 5. Fluid in the esophageal lumen. This is suggestive of some degree of reflux and/or esophageal dysmotility. <Kaz Edouard H - Last Filed: 03/21/17 22:40> Date of Encounter: 03/21/17 Internal Medicine - H&P: HPI History of present illness: Ms. Bond is a 71 year old female All Systems PM: A 10-system review of systems was performed and is negative for pertinent findings except as documented above in the HPI. - Constitutional Vitals: Temp Pulse Resp BP Pulse Ox 98.1 F 98 17 114/75 100 03/21/17 21:45 03/21/17 21:45 03/21/17 21:45 03/21/17 21:45 03/21/17 21:45 Internal Med - H&P Results - Labs CBC & Chem 7: 03/21/17 16:24 03/21/17 16:24 - Attending Attestation SIRS , possible sepsis, there is pneumobilia, consider possible cholangitis or other intra-abdominal infectious process/ileus Dr Nagel evaluated the patient and recommended antibiotics and IVF for now consider NG tube Time spent on this admission 40 minutes I have personally performed a face to face evaluation on this patient. I have reviewed and agree with the care plan. History and Exam by me shows:
[2017-03-21] MEDS: 0.9 % Sodium Chloride 1,000 ML IVC SCH (23:03)
[2017-03-21] MEDS: Pantoprazole 40 MG VIAL IVP SCH (23:04)
[2017-03-21] MEDS: *HR* LORazepam 2 MG/ML VIAL IVP SCH (23:04)
[2017-03-21] MEDS: Ondansetron 4 MG/2 ML VIAL IVP PRN (23:18)
[2017-03-21] MEDS: Latanoprost 2.5 ML BOTTLE RIGHT EYE SCH (23:54)
[2017-03-22 02:05] LABS: Bilirubin,Urine Small (Negative); Blood,Urine Moderate (Negative); Clarity,Urine Cloudy (Clear); Color,Urine Dark Yellow (Yellow); Glucose,Urine (UA) Normal (Normal); Ketones,Urine Negative (Negative); Leukocyte Esterase,Urine Negative (Negative); Nitrite,Urine Negative (Negative); PH,Urine 5.5 pH Units (5.0-8.0); Protein,Urine 30 mg/dL (Neg-Trace); Specific Gravity,Urine 1.022 (1.010-1.025); Urobilinogen,Urine Normal (Normal)
[2017-03-22 02:07] LABS: Squamous Epithelial Cell,Urine Many per lpf (None-Few); WBC,Urine 0-3 per hpf (0-3)
[2017-03-22] MEDS: MetroNIDAZOLE 500 MG/100 ML 500 MG/100 ML BAG IVPB SCH ×4 (02:28→21:20)
[2017-03-22 02:34] LABS: Bacteria,Urine Few per hpf (None-Few); Hyaline Casts,Urine Moderate per lpf (None-Few); Mucus,Urine Few (Few); Yeast,Urine Few per hpf (None Seen)
[2017-03-22] MEDS: *HR* Promethazine 25 MG/ML VIAL IVP PRN ×2 (05:48→18:43)
[2017-03-22] MEDS: 0.9 % Sodium Chloride 1,000 ML IVC SCH ×3 (05:48→21:20)
[2017-03-22] MEDS: *HR* Heparin 5,000 UNIT/ML VIAL SQ SCH ×2 (05:48→18:43)
[2017-03-22 07:03] LABS: Basophils % 0.1 %; Hematocrit 32.7 % (35.3-44.9); Immature Granulocytes % 0.4 % (0-4); Lymphocytes # 0.9 K/mcL (0.6-4.6); Lymphocytes % 5.1 %; Mean Corpuscular HGB Conc 33.6 g/dL (31.6-35.5); Mean Corpuscular Hemoglobin 27.7 pg (28.0-33.3); Mean Corpuscular Volume 82.4 fL (83.0-100.0); Mean Platelet Volume 8.2 fL (9.4-12.4); Monocytes # 0.5 K/mcL (0.0-1.3); Monocytes % 3.2 %; Neutrophils # 15.5 K/mcL (1.6-8.9); Platelet Count 437 K/mcL (140-400); Red Blood Count 3.97 M/mcL (3.82-4.97); Red Cell Distribution Width 14.4 % (11.5-14.5); Segmented Neutrophils % 91.2 %
[2017-03-22] MEDS: Pantoprazole 40 MG VIAL IVP SCH (08:23)
[2017-03-22] MEDS: *HR* LORazepam 2 MG/ML VIAL IVP SCH (08:23)
--- NOTE | 2017-03-22 08:42 | General Surgery Progress Note ---
<Cammy Melton - Last Filed: 03/22/17 08:39> Date of Encounter: 03/22/17 Time of Encounter: 08:00 - Assessment and Plan (1) Abnormal CT scan, liver Current Visit: Yes Status: Acute Noted small amount of portal gas per CT. There are also some gas bubbles in the mucosa of the stomach; no evidence of toxic megacolon; no evidence of submucosal gas in the small bowel. WBC is downtrending Her abdominal exam is benign. Plan: 1. Continue supportive care and discomfort management 2. Recommend continue IV antibiotics and aggressive IV hydration for renal function, per primary medicine. 3. Continue serial abdominal exams. 4. Okay from a surgical standpoint for the patient to have P.O. We will continue to follow along with you (2) GILSON (acute kidney injury) Current Visit: Yes Status: Acute see above Subjective Patient reports: no new complaints, feels better, still having pain, pain is less, voiding w/o difficulty, flatus, bowel movement, afebrile Objective Vital Signs - Last 8 Hours Temp Pulse Resp BP Pulse Ox 03/22/17 07:55 98.2 F 91 15 132/69 96 03/22/17 03:51 98.2 F 89 17 131/62 94 Intake and Output 03/21/17 03/22/17 03/22/17 23:59 07:59 15:59 Intake Total 1000 / 1000 100 / 100 Balance 1000 / 1000 100 / 100 Intake: IV Fluids 1000 / 1000 100 / 100 0.9 % Sodium Chloride 1,000 ML 1000 / 1000 @ 175 mls/hr IVC .Q5H43M ROSSI Rx #:[id number] Flagyl Premix 500 MG/100 ML 500 100 / 100 mg In 100 ml @ 100 mls/hr IVPB Q8H ROSSI Rx#:[id number] Other: Weight 48.8 kg 51.8 kg Blood Glucose* 85 Patient Weight 03/22/17 23:59 Weight 51.8 kg - General physical appearance no distress, other (Pale) - Eyes normal ocular movement - ENT atraumatic, normocephalic - Neck Neck exam: trachea midline, no venous distension - Respiratory normal expansion, normal respiratory effort, clear to auscultation - Cardiovascular Cardiovascular exam: Present: RRR - Abdomen Abdomen: Present: bowel sounds present, soft, non tender - Integumentary no rash - Neurologic normal coordination, normal sensation - Musculoskeletal normal posture - Psychiatric oriented to time, oriented to person, oriented to place, speech is normal, memory intact (Answers questions appropriately, but is somewhat confused about clinical course.) - Labs 03/22/17 06:30 03/21/17 16:24 Consult Discharge Plan - Plan Referrals: Jose Holley Jr, MD [Primary Care Provider] - <ShonaEnrrique Noam - Last Filed: 03/22/17 15:54> Date of Encounter: 03/22/17 - Assessment and Plan (1) Abnormal CT scan, liver Current Visit: Yes Status: Acute Objective Vital Signs - Last 8 Hours Temp Pulse Resp BP Pulse Ox 03/22/17 15:41 98.0 F 88 15 132/67 94 03/22/17 11:55 98.1 F 91 15 129/70 93 03/22/17 07:55 98.2 F 91 15 132/69 96 Intake and Output 03/21/17 03/22/17 03/22/17 23:59 07:59 15:59 Intake Total 1000 / 1000 100 / 100 Balance 1000 / 1000 100 / 100 Intake: IV Fluids 1000 / 1000 100 / 100 0.9 % Sodium Chloride 1,000 ML 1000 / 1000 0 / 0 @ 175 mls/hr IVC .Q5H43M ROS[facility] Rx #:[id number] Flagyl Premix 500 MG/100 ML 500 100 / 100 mg In 100 ml @ 100 mls/hr IVPB Q8H ROS[facility] Rx#:[id number] Oral 0 / 0 Other: Meal NPO Percent of Meal Consumed 0% # Voids 1 Weight 48.8 kg 51.8 kg Blood Glucose* 85 92 Patient Weight 03/22/17 23:59 Weight 51.8 kg - Labs 03/22/17 06:30 03/22/17 08:05 Diabetes panel 03/22/17 Range/Units 08:05 Sodium 127 L (136-145) mEq/L Potassium 3.2 L (3.5-4.5) mEq/L Chloride 88 L D (98-109) mEq/L Carbon Dioxide 26 (19-29) mEq/L BUN 51 H (7-20) mg/dL Creatinine 1.32 H D (0.57-1.11) mg/dL Glucose 91 (70-99) mg/dL Calcium 7.9 L D (8.6-10.8) mg/dL AST 21 (5-34) Units/L ALT 22 (0-55) Units/L Alkaline Phosphatase 91 (38-126) Units/L Albumin 2.5 L D (3.5-5.0) g/dL Calcium panel 03/22/17 Range/Units 08:05 Calcium 7.9 L D (8.6-10.8) mg/dL Phosphorus 3.0 D (2.3-4.7) mg/dL Albumin 2.5 L D (3.5-5.0) g/dL Pituitary panel 03/22/17 Range/Units 08:05 Sodium 127 L (136-145) mEq/L Potassium 3.2 L (3.5-4.5) mEq/L Chloride 88 L D (98-109) mEq/L Carbon Dioxide 26 (19-29) mEq/L BUN 51 H (7-20) mg/dL Creatinine 1.32 H D (0.57-1.11) mg/dL Glucose 91 (70-99) mg/dL Calcium 7.9 L D (8.6-10.8) mg/dL Adrenal panel 03/22/17 Range/Units 08:05 Sodium 127 L (136-145) mEq/L Potassium 3.2 L (3.5-4.5) mEq/L Chloride 88 L D (98-109) mEq/L Carbon Dioxide 26 (19-29) mEq/L BUN 51 H (7-20) mg/dL Creatinine 1.32 H D (0.57-1.11) mg/dL Glucose 91 (70-99) mg/dL Calcium 7.9 L D (8.6-10.8) mg/dL Total Bilirubin 0.3 (0.2-1.2) mg/dL AST 21 (5-34) Units/L ALT 22 (0-55) Units/L Alkaline Phosphatase 91 (38-126) Units/L Albumin 2.5 L D (3.5-5.0) g/dL - Attending Attestation I have personally performed a face to face evaluation on this patient. I have reviewed and agree with the care plan. History and Exam by me shows: The patient was seen and evaluated on morning rounds with the resident. She continues to look pale and frail but is not complaining of any abdominal pain. On physical examination her abdominal discomfort is completely gone and her exam is negative for any guarding or rebound. I think it is reasonable to give her clear liquid diet today. Continue aggressive supportive her renal function and treatment for sepsis. Enrrique Nagel MD FACS
[2017-03-22] MEDS ORDERED: *HR* LORazepam 2 MG/ML VIAL IVP PRN (08:56)
[2017-03-22] MEDS ORDERED: Levofloxacin 750 MG/150 ML 750 MG/150 ML BAG IVPB SCH (09:00)
[2017-03-22 09:30] LABS: Albumin 2.5 g/dL (3.5-5.0); Albumin/Globulin Ratio 0.7 (1.1-2.2); Bilirubin,Total 0.3 mg/dL (0.2-1.2); Calcium 7.9 mg/dL (8.6-10.8); Globulin 3.7 g/dL (2.4-3.5); Magnesium 1.7 mg/dL (1.6-2.6); Potassium 3.2 mEq/L (3.5-4.5); Total Protein 6.2 g/dL (6.0-8.3)
[2017-03-22] MEDS ORDERED: *HR* Dextrose 50 % in Water (Syg) 50 ML SYRINGE IVP PRN (15:07)
[2017-03-22] MEDS ORDERED: Dextrose Gel 15 GM PO PRN ×2 (15:07)
[2017-03-22] MEDS ORDERED: D5% in Water 1,000 ML IVC PRN (15:07)
[2017-03-22] MEDS ORDERED: Haloperidol Lactate 5 MG/ML VIAL IVP ONE (15:10)
--- NOTE | 2017-03-22 15:13 | Internal Med Progress Note ---
Date of Encounter: 03/22/17 Time of Encounter: 11:15 - Assessment and plan (1) Ileus, unspecified Current Visit: Yes Status: Acute Assessment and plan: Acute nausea and vomiting for about 3-4 days with intermittent diarrhea Continue empiric IV Levaquin, IV Flagyl, IV fluids, IV Zofran as needed, IV Protonix, NPO CT head - no acute intracranial abnormality CT chest - masslike consolidation in left upper lobe with endobronchial filling defect with known lung cancer, probable satellite lesions present X-ray pelvis - no acute oseous findings, multiple gas-filled loops of small bowel CT abdomen - portal venous gas, possible early small bowel obstruction versus ileus, multiloculated cystic mass in the right hemipelvis WBC - 17.0 Cultures - pending Gen. surgery consult - recommendations reviewed, no surgical correction at this time, continue supportive care, appreciate input Cardiac telemetry, labs in a.m., monitor closely (2) Abnormal CT scan, liver Current Visit: Yes Status: Acute Assessment and plan: Small amount of portal gas per CT, no evidence of toxic megacolon, no submucosal gas in the small bowel - WBC trending down Integument poor economy and buttocks, supportive care, IV pain medication Cardiac telemetry, labs in a.m. 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, T4N3M0, stage IIIB, additional nodules in the lower lobes - extending to mediastinum Currently on chemotherapy Oncology consult (4) Anxiety Current Visit: Yes Status: Chronic Assessment and plan: Chronic anxiety, stable Continue IV Ativan as needed (5) COPD (chronic obstructive pulmonary disease) Current Visit: Yes Status: Chronic Assessment and plan: Probable COPD, stable - not an exacerbation Patient is not on home oxygen, not on any medications at home Continue DuoNeb breathing treatment PRN, O2 via nasal cannula Qualifiers: COPD type: unspecified COPD Qualified Code(s): J44.9 - Chronic obstructive pulmonary disease, unspecified (6) Tobacco abuse Current Visit: Yes Status: Chronic Assessment and plan: Patient currently smokes one pack of cigarettes daily, she has cut down from 3 packs daily about one year ago - smoked for more than 40 years Counseled about cessation, nicotine patch (7) DVT prophylaxis Current Visit: Yes Status: Acute Assessment and plan: Continue heparin subcutaneous - Time Spent With Patient 25 - 35 minutes - Subjective Interval history: Examined this morning. Patient is awake and alert. Patient seems to have mild intermittent confusion. is at bedside, he states patient does seem to have mild confusion. Denies chest pain or shortness of breath. Hemodynamically stable. No fever. She is currently NPO. No other acute events or complaints. Admitted for abnormal CT scan of liver, which shows small amount of gas and also in the mucosa of stomach. No evidence of submucosal gastric small bowel and no evidence of toxic megacolon. Patient is currently on IV fluids and supportive care. - Constitutional Vitals: Temp Pulse Resp BP Pulse Ox 98.1 F 91 15 129/70 93 03/22/17 11:55 03/22/17 11:55 03/22/17 11:55 03/22/17 11:55 03/22/17 11:55 General appearance: Present: cooperative, A&O X 3, pleasant, no acute distress, answers questions appropriately Exam: Chronically ill-appearing, generalized weakness, mild intermittent confusion - Head Head exam: Present: atraumatic - Eye Eye exam: Present: EOMI Additional comments: Pallor - ENT ENT exam: Present: mucous membranes dry - Respiratory Respiratory exam: Present: decreased breath sounds (Slightly decreased in both bases, otherwise clear to auscultation). Absent: accessory muscle use, chest wall tenderness, rales, rhonchi, wheezes, tachypnea - Cardiovascular Cardiovascular exam: Present: RRR, +S1, +S2 - GI/Abdominal GI/Abdominal exam: Present: normal bowel sounds, soft, tenderness (Mild tenderness in the right upper quadrant and right lower quadrant). Absent: distended, firm, guarding - Extremities Exam Extremities exam: Present: radial pulses palpable and symmetrical. Absent: calf tenderness, cyanotic, pedal edema - Neurological Exam Neurological exam: Present: alert, CN II-XII intact, oriented X3, no focal deficits. Absent: facial droop, speech deficit Internal Medicine: Result - Labs CBC & Chem 7: 03/22/17 06:30 03/22/17 08:05 Labs: Short CBC 03/22/17 Range/Units 06:30 WBC 17.0 H (4.3-11.1) K/mcL Hgb 11.0 L D (11.5-15.4) g/dL Hct 32.7 L (35.3-44.9) % Plt Count 437 H (140-400) K/mcL Neutrophils # 15.5 H (1.6-8.9) K/mcL BMP 03/22/17 08:05 Sodium 127 L Potassium 3.2 L Chloride 88 L D Carbon Dioxide 26 BUN 51 H Creatinine 1.32 H D Glucose 91 Calcium 7.9 L D Liver Function 03/22/17 Range/Units 08:05 Total Bilirubin 0.3 (0.2-1.2) mg/dL AST 21 (5-34) Units/L ALT 22 (0-55) Units/L Alkaline Phosphatase 91 (38-126) Units/L Albumin 2.5 L D (3.5-5.0) g/dL Urine 03/22/17 Range/Units 01:50 Urine Color Dark Yellow (Yellow) Urine Clarity Cloudy A (Clear) Urine pH 5.5 (5.0-8.0) pH Units Ur Specific [place] 1.022 (1.010-1.025) Urine Protein 30 H (Neg-Trace) mg/dL Urine Glucose (UA) Normal (Normal) mg/dL Consult Discharge Plan - Plan Referrals: Jose Holley Jr, MD [Primary Care Provider] -
--- NOTE | 2017-03-22 15:18 | Oncology Inp Consult Note ---
Date of Encounter: 03/22/17 Time of Encounter: 15:15 Assessment and Plan (1) Squamous cell carcinoma of left lung Status: Acute Assessment and plan: - Ms. 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 Her most recent scans are consistent with disease progression, but she has not started third line of therapy yet ( initially planned for Mar, but postpone due to acute illness). She expect to see her oncologist at the office after discharge to discuss the appropriate time to start palliative chemotherapy with Docetaxol. - Upon discharge, please arrange for follow up with her primary oncologist Dr. Shabazz at [facility]. (2) Hyperuricemia Status: Acute Assessment and plan: - Probably related to malignancy, but it doesn't seem to be secondary to TLS in view of lack of hyperkalemia, and normal phosphate levels. Consider starting allopurinol 300 mg PO BID, and repeat serum uric acid levels. - If persistent hyper uricemia, consider rasburicase 7.5 mg x 1. (3) Ileus, unspecified Status: Acute Assessment and plan: - Seems to be improving with conservative management: IVF, antibiotics. Being managed by primary team and closely being followed by surgery. (4) Pelvic mass Status: Acute Assessment and plan: - There is interval increase of pelvic mass, reported as multiloculated cystic mass , suspicious for cystic ovarian neoplasm. At this time there is not indication for inpatient procedures , but further recommendations will need to be addressed with primary oncologist during follow up office visit. - Data of Consult Requesting Physician: Hari Gonzalez MD Primary Care Provider: Jose Holley Jr, MD - Consult Narrative Reason for consult: management of recurrent NSCLC History of present illness: Ms. Bond is a 71 year old female with stage IV squamous cell carcinoma who has progressed after two lines of therapy, now admitted after presenting to the ED with abdominal complaints. She has a history of stage IIIB lung squamous cell carcinoma with progression to first line of therapy. She was subsequently started on palliative nivolumab, and received her last cycle approximately one month ago after CT scans showed evidence of disease progression. She was schedule to receive third line of therapy with docetaxol on Mar 17, 2017, but this was delayed due to acute illness. She is currently admitted due to to abdominal ileus, and findings concerning for pneumobilia, as well as interval increase of prior pelvic mass suspicious of ovarian neoplasm. She reports that her abdominal complaints have improved significantly, but she has remained NPO since admission. She was seen with her at the bedside. Past Med Surg Social Fam HX - Past Medical History Medical history: arthritis, cancer, GERD, migraine, other Psychiatric history: anxiety, depression, panic disorder - Past Surgical History Surgical History: vascular surgery - Social History Smoking Status: Current every day smoker Smokeless Tobacco Status: No Alcohol use: none Drug use: none - Family History Mother Living Status: Father Living Status: Medications and Allergies Acetaminophen [Tylenol] 500 mg PO Q6HR PRN 09/03/15 [History] Aspirin 325 mg PO DAILY 09/03/15 [History] Latanoprost [Xalatan] 1 drop RIGHT EYE HS 09/03/15 [History] Loperamide [Imodium] 2 mg PO Q4HR PRN #90 capsule 10/28/16 [Rx] Ondansetron [Zofran] 8 mg PO Q8HR PRN #90 tablet 10/28/16 [Rx] OxyCODONE Immed Rel [Roxicodone 5 MG] 5 mg PO Q12H PRN #60 tablet 01/20/17 [Rx] LORazepam [Ativan] 0.5 mg PO AD PRN #2 tablet 02/08/17 [Rx] Dexamethasone [Decadron] 4 mg PO BID #36 tab 03/03/17 [Rx] Prochlorperazine Maleate [Compazine] 10 mg PO Q8HR PRN #90 tablet 03/03/17 [Rx] 3 Allergy/AdvReac Type Severity Reaction Status Date / Time Penicillins Allergy Hives Verified 03/16/17 17:20 Sulfa (Sulfonamide Allergy Hives Verified 03/16/17 17:20 Antibiotics) eggs Allergy See Uncoded 03/16/17 17:20 Comments dairy products AdvReac Flatulence Uncoded 03/16/17 17:20 Constitutional: Present: anorexia, fatigue. Absent: fever(s) Eyes: Absent: blurry vision Cardiovascular: Absent: chest pain, chest pain at rest Respiratory: Absent: dyspnea, hemoptysis Gastrointestinal: Present: abdominal pain. Absent: coffee ground emesis, diarrhea Musculoskeletal: Absent: arthralgias, joint swelling Neurological: Present: abnormal gait. Absent: focal weakness Psychiatric: Absent: behavioral changes, hallucinations Hematologic/Lymphatic: Present: as per HPI Oncology - Exam - Constitutional Vitals: Temp Pulse Resp BP Pulse Ox 98.1 F 91 15 129/70 93 03/22/17 11:55 03/22/17 11:55 03/22/17 11:55 03/22/17 11:55 03/22/17 11:55 - Head Head exam: Present: normal inspection - Eye Eye exam: Present: EOMI, normal appearance - ENT ENT exam: Present: mucous membranes moist, normal oropharynx - Neck Neck exam: Absent: tenderness, thyromegaly - Respiratory Respiratory exam: Present: CTAB. Absent: prolonged expiratory phase - Cardiovascular Cardiovascular exam: Present: RRR, +S1 - GI/Abdominal GI/Abdominal exam: Present: normal bowel sounds. Absent: mass, organomegaly, rebound, rigid - Extremities Exam Extremities exam: Present: normal inspection. Absent: tenderness - Back Exam Back exam: Present: normal inspection. Absent: paraspinal tenderness - Neurological Exam Neurological exam: Present: oriented X3. Absent: altered - Skin Skin exam: Present: normal color Oncology - Results Labs: Short CBC 03/22/17 Range/Units 06:30 WBC 17.0 H (4.3-11.1) K/mcL Hgb 11.0 L D (11.5-15.4) g/dL Hct 32.7 L (35.3-44.9) % Plt Count 437 H (140-400) K/mcL Neutrophils # 15.5 H (1.6-8.9) K/mcL BMP 03/22/17 08:05 Sodium 127 L Potassium 3.2 L Chloride 88 L D Carbon Dioxide 26 BUN 51 H Creatinine 1.32 H D Glucose 91 Calcium 7.9 L D Liver Function 03/22/17 Range/Units 08:05 Total Bilirubin 0.3 (0.2-1.2) mg/dL AST 21 (5-34) Units/L ALT 22 (0-55) Units/L Alkaline Phosphatase 91 (38-126) Units/L Albumin 2.5 L D (3.5-5.0) g/dL Urine 03/22/17 Range/Units 01:50 Urine Color Dark Yellow (Yellow) Urine Clarity Cloudy A (Clear) Urine pH 5.5 (5.0-8.0) pH Units Ur Specific [place] 1.022 (1.010-1.025) Urine Protein 30 H (Neg-Trace) mg/dL Urine Glucose (UA) Normal (Normal) mg/dL Consult Discharge Plan - Plan Referrals: Jose Holley Jr, MD [Primary Care Provider] -
[2017-03-22] MEDS ORDERED: Ipratropium/Albuterol Neb 3 ML IH PRN (15:23)
[2017-03-22] MEDS: Nicotine 21 MG PATCH.TD24 TD SCH (16:22)
[2017-03-22] MEDS: Insulin LISPRO 300 UNITS/3 ML VIAL SQ SCH ×2 (19:32→23:52)
[2017-03-22] MEDS: Latanoprost 2.5 ML BOTTLE RIGHT EYE SCH (21:24)
[2017-03-22] MEDS: Ondansetron 4 MG/2 ML VIAL IVP PRN (22:50)
[2017-03-23] MEDS: MetroNIDAZOLE 500 MG/100 ML 500 MG/100 ML BAG IVPB SCH ×3 (03:35→18:12)
[2017-03-23] MEDS: *HR* HYDROmorphone (PF) 1 MG/ML SYRINGE IVP PRN ×2 (03:47→22:51)
[2017-03-23] MEDS: *HR* Promethazine 25 MG/ML VIAL IVP PRN ×3 (03:47→20:06)
[2017-03-23 04:47] LABS: Basophils % 0.2 %; Hematocrit 33.1 % (35.3-44.9); Hemoglobin 10.5 g/dL (11.5-15.4); Immature Granulocytes % 0.4 % (0-4); Lymphocytes # 2.3 K/mcL (0.6-4.6); Lymphocytes % 12.2 %; Mean Corpuscular HGB Conc 31.7 g/dL (31.6-35.5); Mean Corpuscular Hemoglobin 27.1 pg (28.0-33.3); Mean Corpuscular Volume 85.5 fL (83.0-100.0); Mean Platelet Volume 8.8 fL (9.4-12.4); Monocytes # 1.4 K/mcL (0.0-1.3); Monocytes % 7.2 %; Platelet Count 458 K/mcL (140-400); Red Blood Count 3.87 M/mcL (3.82-4.97); Red Cell Distribution Width 14.7 % (11.5-14.5)
[2017-03-23 05:04] LABS: Alanine Aminotransferase 16 Units/L (0-55); Albumin 2.5 g/dL (3.5-5.0); Albumin/Globulin Ratio 0.7 (1.1-2.2); Alkaline Phosphatase 87 Units/L (38-126); Aspartate Amino Transferase 20 Units/L (5-34); BUN/Creatinine Ratio 39 (6-26); Bilirubin,Total 0.2 mg/dL (0.2-1.2); Blood Urea Nitrogen 26 mg/dL (7-20); Calcium 8.5 mg/dL (8.6-10.8); Carbon Dioxide 25 mEq/L (19-29); Chloride 99 mEq/L (98-109); Globulin 3.4 g/dL (2.4-3.5); Glucose 74 mg/dL (70-99); Magnesium 1.8 mg/dL (1.6-2.6); Osmolality,Calculated 281 (280-300); Potassium 2.9 mEq/L (3.5-4.5); Sodium 134 mEq/L (136-145); Total Protein 5.9 g/dL (6.0-8.3); eGFR For African Americans > 60 (> 60); eGFR For Non-African Americans > 60 (> 60)
[2017-03-23] MEDS: *HR* Heparin 5,000 UNIT/ML VIAL SQ SCH ×2 (06:41→17:27)
[2017-03-23] MEDS: Insulin LISPRO 300 UNITS/3 ML VIAL SQ SCH ×3 (06:42→16:53)
--- NOTE | 2017-03-23 07:34 | General Surgery Progress Note ---
Date of Encounter: 03/23/17 Time of Encounter: 07:20 - Assessment and Plan (1) Abnormal CT scan, liver Current Visit: Yes Status: Acute The patient appears to have a small amount of portal gas. There are also some gas bubbles in the mucosa of the stomach. I see no evidence of toxic megacolon. I see no evidence of submucosal gas in the small bowel. She has a negative physical examination the abdomen. At this point I would recommend antibiotics and aggressive hydration and supportive renal function. Glad to follow along with you 03/23/2017. The patient seen and evaluated on morning rounds. She has no abdominal pain. She does have hypokalemia. We will start her on clear liquid diet as well as replace the potassium 40 mEq IV area overall her condition is improving. The differential diagnosis for air in the portal venous system his mucosal necrosis. I see no evidence of segmental bowel necrosis. This may be a localized process that is improving. We will continue to follow along closely. Subjective Narrative: The patient was seen and evaluated on morning rounds. She is not complaining of any abdominal discomfort. She had a normal bowel movement yesterday that was formed. Her white blood cell count is trending downward much lower than admission however slightly higher than yesterday. Her renal function has recovered with aggressive hydration and treatment of her nausea and vomiting. The differential diagnosis of air in the oral venous systems includes mucosal necrosis. This may be related to her recent chemotherapy. The only evidence of any mucosal abnormality seems to be in the stomach. The ileus also seems to be improving. Her abdominal examination is totally negative we will advance her to clear liquid diet. Objective Vital Signs - Last 8 Hours Temp Pulse Resp BP Pulse Ox 03/23/17 03:56 98.6 F 90 20 104/63 92 Intake and Output 03/22/17 03/22/17 03/23/17 15:59 23:59 07:59 Intake Total 100 / 100 1200 / 1200 Balance 100 / 100 1200 / 1200 Intake: IV Fluids 100 / 100 1200 / 1200 0.9 % Sodium Chloride 1,000 ML 0 / 0 1000 / 1000 @ 175 mls/hr IVC .Q5H43M [facility] Rx #:[id number] Flagyl Premix 500 MG/100 ML 500 100 / 100 200 / 200 mg In 100 ml @ 100 mls/hr IVPB Q8H [facility] Rx#:[id number] Oral 0 / 0 Other: Meal NPO Percent of Meal Consumed 0% Stool Size Smear Stool Consistency formed Stool Color Brown # Voids 1 1 # Urine Diapers 1 Weight 52.2 kg Blood Glucose* 92 73 86 Patient Weight 03/23/17 23:59 Weight 52.2 kg - General physical appearance no pain, chronically ill - Respiratory wheezing: bilateral (Decreased breath sounds) - Cardiovascular Cardiovascular exam: Present: RRR, no murmurs/rubs/gallops - Abdomen Abdomen: Present: bowel sounds present, soft, non tender - Neurologic normal coordination, normal sensation - Psychiatric oriented to time, oriented to person, oriented to place, speech is normal, memory intact - Labs 03/23/17 04:00 03/23/17 04:00 Diabetes panel 03/22/17 03/23/17 Range/Units 08:05 04:00 Sodium 127 L 134 L D (136-145) mEq/L Potassium 3.2 L 2.9 L (3.5-4.5) mEq/L Chloride 88 L D 99 (98-109) mEq/L Carbon Dioxide 26 25 (19-29) mEq/L BUN 51 H 26 H D (7-20) mg/dL Creatinine 1.32 H D 0.66 (0.57-1.11) mg/dL Glucose 91 74 (70-99) mg/dL Calcium 7.9 L D 8.5 L (8.6-10.8) mg/dL AST 21 20 (5-34) Units/L ALT 22 16 (0-55) Units/L Alkaline Phosphatase 91 87 (38-126) Units/L Albumin 2.5 L D 2.5 L (3.5-5.0) g/dL Calcium panel 03/22/17 03/23/17 Range/Units 08:05 04:00 Calcium 7.9 L D 8.5 L (8.6-10.8) mg/dL Phosphorus 3.0 D (2.3-4.7) mg/dL Albumin 2.5 L D 2.5 L (3.5-5.0) g/dL Pituitary panel 03/22/17 03/23/17 Range/Units 08:05 04:00 Sodium 127 L 134 L D (136-145) mEq/L Potassium 3.2 L 2.9 L (3.5-4.5) mEq/L Chloride 88 L D 99 (98-109) mEq/L Carbon Dioxide 26 25 (19-29) mEq/L BUN 51 H 26 H D (7-20) mg/dL Creatinine 1.32 H D 0.66 (0.57-1.11) mg/dL Glucose 91 74 (70-99) mg/dL Calcium 7.9 L D 8.5 L (8.6-10.8) mg/dL Adrenal panel 03/22/17 03/23/17 Range/Units 08:05 04:00 Sodium 127 L 134 L D (136-145) mEq/L Potassium 3.2 L 2.9 L (3.5-4.5) mEq/L Chloride 88 L D 99 (98-109) mEq/L Carbon Dioxide 26 25 (19-29) mEq/L BUN 51 H 26 H D (7-20) mg/dL Creatinine 1.32 H D 0.66 (0.57-1.11) mg/dL Glucose 91 74 (70-99) mg/dL Calcium 7.9 L D 8.5 L (8.6-10.8) mg/dL Total Bilirubin 0.3 0.2 (0.2-1.2) mg/dL AST 21 20 (5-34) Units/L ALT 22 16 (0-55) Units/L Alkaline Phosphatase 91 87 (38-126) Units/L Albumin 2.5 L D 2.5 L (3.5-5.0) g/dL Consult Discharge Plan - Plan Referrals: Jose Holley Jr, MD [Primary Care Provider] -
[2017-03-23] MEDS ORDERED: Potassium Chloride 40 MEQ, Lidocaine 1% 2 ML in D5% in Water 500 ML IVPB ONE (07:36)
[2017-03-23] MEDS: Pantoprazole 40 MG VIAL IVP SCH (08:28)
[2017-03-23] MEDS: Nicotine 21 MG PATCH.TD24 TD SCH (08:29)
--- NOTE | 2017-03-23 09:02 | Electrocardiograph Report ---
[address] [place], [place] [address] Test Date: 2017-03-21 Pat Name: Tawanna Bond Department: 103 Room: 2A45 Gender: F Application Manager: : 1945 Requested By: Richard Gauthier Order Number: [id number] Reading MD: Kevin Dsouza MD Measurements Intervals [place] Rate: 101 P: 38 MI: 112 QRS: 88 QRSD: 123 T: 42 QT: 357 QTc: 415 Interpretive Statements SINUS TACHYCARDIA WITH SHORT MI INTERVAL RIGHT BUNDLE BRANCH BLOCK LATERAL ISCHEMIA Electronically Signed On 03-23-2017 9:01:31 EST by Kevin Dsouza MD
[2017-03-23] MEDS: Ondansetron 4 MG/2 ML VIAL IVP PRN ×2 (13:28→22:48)
--- NOTE | 2017-03-23 14:36 | Internal Med Progress Note ---
Date of Encounter: 03/23/17 Time of Encounter: 10:10 - Assessment and plan (1) Ileus, unspecified Current Visit: Yes Status: Acute Assessment and plan: Acute nausea and vomiting for about 3-4 days with intermittent diarrhea - symptoms now improved Continue empiric IV Levaquin, IV Flagyl, IV fluids, IV Zofran as needed, IV Protonix, NPO CT head - no acute intracranial abnormality CT chest - masslike consolidation in left upper lobe with endobronchial filling defect with known lung cancer, probable satellite lesions present X-ray pelvis - no acute oseous findings, multiple gas-filled loops of small bowel CT abdomen - portal venous gas, possible early small bowel obstruction versus ileus, multiloculated cystic mass in the right hemipelvis WBC - 18.8 Cultures - pending Gen. surgery consult - recommendations reviewed, no surgical correction at this time, continue supportive care, appreciate input Cardiac telemetry, labs in a.m., monitor closely 03/23 - patient was on clear liquid diet earlier today, she developed nausea and vomiting, we will keep her NPO again, abdominal pain has improved, no diarrhea (2) Abnormal CT scan, liver Current Visit: Yes Status: Acute Assessment and plan: Small amount of portal gas per CT, no evidence of toxic megacolon, no submucosal gas in the small bowel - WBC trending down CT abdomen and pelvis - reviewed Continue supportive care, IV pain medication Gen. surgery following Cardiac telemetry, labs in a.m. 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, T4N3M0, stage IIIB, additional nodules in the lower lobes - extending to mediastinum Currently on chemotherapy Oncology consult - appreciate input (4) Anxiety Current Visit: Yes Status: Chronic Assessment and plan: Chronic anxiety, stable Continue IV Ativan as needed (5) COPD (chronic obstructive pulmonary disease) Current Visit: Yes Status: Chronic Assessment and plan: Probable COPD, stable - not in exacerbation Patient is not on home oxygen, not on any medications at home Continue DuoNeb breathing treatment PRN, O2 via nasal cannula Qualifiers: COPD type: unspecified COPD Qualified Code(s): J44.9 - Chronic obstructive pulmonary disease, unspecified (6) Tobacco abuse Current Visit: Yes Status: Chronic Assessment and plan: Patient currently smokes one pack of cigarettes daily, she has cut down from 3 packs daily about one year ago - smoked for more than 40 years Counseled about cessation, nicotine patch (7) DVT prophylaxis Current Visit: Yes Status: Acute Assessment and plan: Continue heparin subcutaneous - Time Spent With Patient 25 - 35 minutes - Subjective Interval history: Examined this morning. Patient is awake and alert. Patient is more responsive today, and her confusion seems to have improved. is at bedside, he states patient seems to be doing better this morning. Denies chest pain or shortness of breath. Hemodynamically stable. No fever. She is currently on clear liquid diet. RN reports patient did have some vomiting and nausea. We will keep her NPO again. No other acute events or complaints. Admitted for abnormal CT scan of liver, which shows small amount of gas and also in the mucosa of stomach. No evidence of submucosal gastric small bowel and no evidence of toxic megacolon. Patient is currently on IV fluids and supportive care. General surgery following. - Constitutional Vitals: Temp Pulse Resp BP Pulse Ox 97.5 F L 84 24 143/75 94 03/23/17 11:18 03/23/17 11:18 03/23/17 11:18 03/23/17 11:18 03/23/17 11:18 General appearance: Present: cooperative, A&O X 3, pleasant, no acute distress, answers questions appropriately Exam: Chronically ill-appearing, generalized weakness - Head Head exam: Present: atraumatic - Eye Eye exam: Present: EOMI - ENT ENT exam: Present: mucous membranes dry - Respiratory Respiratory exam: Present: decreased breath sounds (Slightly decreased in both bases, otherwise clear to auscultation). Absent: accessory muscle use, rales, rhonchi, wheezes, tachypnea - Cardiovascular Cardiovascular exam: Present: RRR, +S1, +S2 - GI/Abdominal GI/Abdominal exam: Present: soft, tenderness (Mild RUQ and RLQ tenderness), no peritoneal signs. Absent: distended, firm, guarding - Extremities Exam Extremities exam: Present: radial pulses palpable and symmetrical. Absent: calf tenderness, cyanotic, pedal edema - Neurological Exam Neurological exam: Present: alert, oriented X3, no focal deficits. Absent: facial droop, speech deficit Internal Medicine: Result - Labs CBC & Chem 7: 03/23/17 04:00 03/23/17 04:00 Labs: Short CBC 03/23/17 Range/Units 04:00 WBC 18.8 H (4.3-11.1) K/mcL Hgb 10.5 L (11.5-15.4) g/dL Hct 33.1 L (35.3-44.9) % Plt Count 458 H (140-400) K/mcL Neutrophils # 15.0 H (1.6-8.9) K/mcL BMP 03/23/17 04:00 Sodium 134 L D Potassium 2.9 L Chloride 99 Carbon Dioxide 25 BUN 26 H D Creatinine 0.66 Glucose 74 Calcium 8.5 L Liver Function 03/23/17 Range/Units 04:00 Total Bilirubin 0.2 (0.2-1.2) mg/dL AST 20 (5-34) Units/L ALT 16 (0-55) Units/L Alkaline Phosphatase 87 (38-126) Units/L Albumin 2.5 L (3.5-5.0) g/dL Consult Discharge Plan - Plan Referrals: Jose Holley Jr, MD [Primary Care Provider] -
[2017-03-23] MEDS: 0.9 % Sodium Chloride 1,000 ML IVC SCH ×2 (14:57→22:26)
[2017-03-23] MEDS ORDERED: Metoclopramide 10 MG/2 ML VIAL IVP ONE (15:45)
[2017-03-23] MEDS ORDERED: Levofloxacin 750 MG/150 ML 750 MG/150 ML BAG IVPB SCH (18:00)
[2017-03-23] MEDS ORDERED: Levofloxacin 500 MG/100 ML 500 MG/100 ML BAG IVPB SCH (20:00)
[2017-03-23] MEDS: Latanoprost 2.5 ML BOTTLE RIGHT EYE SCH (20:06)
[2017-03-23] MEDS ORDERED: Insulin LISPRO 300 UNITS/3 ML VIAL SQ SCH (21:00)
[2017-03-24] MEDS: MetroNIDAZOLE 500 MG/100 ML 500 MG/100 ML BAG IVPB SCH ×3 (04:08→18:17)
[2017-03-24] MEDS: 0.9 % Sodium Chloride 1,000 ML IVC SCH ×2 (04:09→13:10)
[2017-03-24] MEDS: *HR* Heparin 5,000 UNIT/ML VIAL SQ SCH ×2 (06:12→18:03)
[2017-03-24] MEDS: *HR* HYDROmorphone (PF) 1 MG/ML SYRINGE IVP PRN ×5 (06:13→21:30)
[2017-03-24] MEDS: *HR* Promethazine 25 MG/ML VIAL IVP PRN (06:22)
[2017-03-24 06:51] LABS: Basophils % 0.2 %; Eosinophils # 0.1 K/mcL (0.0-0.6); Eosinophils % 0.3 %; Hematocrit 33.7 % (35.3-44.9); Hemoglobin 10.7 g/dL (11.5-15.4); Immature Granulocytes % 0.5 % (0-4); Lymphocytes # 2.4 K/mcL (0.6-4.6); Mean Corpuscular HGB Conc 31.8 g/dL (31.6-35.5); Mean Corpuscular Hemoglobin 27.6 pg (28.0-33.3); Mean Corpuscular Volume 86.9 fL (83.0-100.0); Mean Platelet Volume 8.8 fL (9.4-12.4); Monocytes # 1.2 K/mcL (0.0-1.3); Monocytes % 6.8 %; Neutrophils # 14.5 K/mcL (1.6-8.9); Platelet Count 413 K/mcL (140-400); Red Blood Count 3.88 M/mcL (3.82-4.97); Red Cell Distribution Width 14.6 % (11.5-14.5); Segmented Neutrophils % 79.2 %
[2017-03-24 07:07] LABS: BUN/Creatinine Ratio 21 (6-26); Blood Urea Nitrogen 12 mg/dL (7-20); Calcium 8.8 mg/dL (8.6-10.8); Carbon Dioxide 24 mEq/L (19-29); Chloride 103 mEq/L (98-109); Glucose 97 mg/dL (70-99); Magnesium 1.4 mg/dL (1.6-2.6); Osmolality,Calculated 282 (280-300); Sodium 136 mEq/L (136-145); eGFR For African Americans > 60 (> 60); eGFR For Non-African Americans > 60 (> 60)
[2017-03-24] MEDS: Insulin LISPRO 300 UNITS/3 ML VIAL SQ SCH ×3 (07:47→16:09)
[2017-03-24] MEDS: Pantoprazole 40 MG VIAL IVP SCH (08:57)
[2017-03-24] MEDS: Nicotine 21 MG PATCH.TD24 TD SCH (09:00)
[2017-03-24] MEDS ORDERED: cefTAZidime 1,000 MG in Water for inj. (sterile) 10 ML IVP SCH (10:00)
[2017-03-24] MEDS: cefTAZidime 2,000 MG in Water for inj. (sterile) 20 ML IVP SCH ×2 (10:54→18:08)
[2017-03-24] MEDS: Ondansetron 4 MG/2 ML VIAL IVP PRN (13:10)
--- NOTE | 2017-03-24 13:39 | General Surgery Progress Note ---
<Cammy Melton - Last Filed: 03/24/17 15:51> Date of Encounter: 03/24/17 Time of Encounter: 13:00 - Assessment and Plan (1) Abnormal CT scan, liver Current Visit: Yes Status: Acute 03/22/2017:Noted small amount of portal gas per CT. There are also some gas bubbles in the mucosa of the stomach; no evidence of toxic megacolon; no evidence of submucosal gas in the small bowel. WBC is downtrending 03/23/2017: 03/23/2017. The patient seen and evaluated on morning rounds. She has no abdominal pain. She does have hypokalemia. We will start her on clear liquid diet as well as replace the potassium 40 mEq IV area overall her condition is improving. The differential diagnosis for air in the portal venous system his mucosal necrosis. I see no evidence of segmental bowel necrosis. This may be a localized process that is improving. We will continue to follow along closely. 03/24/2017: Repeat CT of abdomen and pelvis with oral and IV contrast ordered. She is vomiting after drinking contrast, endorses abdominal discomfort, and denies flatus/BM. CT of abdomen and pelvis demonstrate new right incarcerated inguinal hernia and worsening small bowel obstruction. Plan: NG tube to the left nares inserted. Immediate return of 1 L bilious material noted. Continue NG to low intermittent wall suction. Insert Larson catheter for accurate I/O and intraoperative monitoring. Will obtain UA with reflex to culture at time of insertion. NPO IV fluids we will plan for a surgical intervention including open right inguinal incarcerated hernia repair, possible laparotomy, possible small bowel resection. The risks, benefits, and recommendations were reviewed with the patient, her , 2 sons, to daughters in law, and granddaughter at bedside. They are agreeable and wish to proceed. (2) GILSON (acute kidney injury) Current Visit: Yes Status: Acute see above Subjective Patient reports: still having pain, pain is less, voiding w/o difficulty, no flatus, no bowel movement, nausea, vomiting, afebrile Objective Vital Signs - Last 8 Hours Temp Pulse Resp BP Pulse Ox 03/24/17 11:30 97.5 F L 80 15 125/76 92 03/24/17 09:47 97 03/24/17 07:28 98.4 F 82 16 144/76 97 Intake and Output 03/23/17 03/24/17 03/24/17 23:59 07:59 15:59 Intake Total 1100 / 1100 1000 / 1000 1420 / 1420 Output Total 500 / 500 600 / 600 0 / 0 Balance 600 / 600 400 / 400 1420 / 1420 Intake: IV Fluids 1100 / 1100 1000 / 1000 1420 / 1420 0.9 % Sodium Chloride 1,000 ML 1000 / 1000 1000 / 1000 950 / 950 @ 175 mls/hr IVC .Q5H43M PENDING SALE TO [facility] Rx #:[id number] Tazicef 2,000 mg In Water for 20 / 20 inj. (sterile) 20 ML @ 600 mls/ hr IVP Q8H PENDING [facility]ALE TO [facility] Rx#:[id number] Magnesium Sulfate Premix 2gm/ 50 / 50 50mL 2 gm In 50 ml @ 48.077 mls /hr IVPB ONCE ONE Rx#: [id number] Flagyl Premix 500 MG/100 ML 500 100 / 100 200 / 200 mg In 100 ml @ 100 mls/hr IVPB Q8H PENDING [facility]ALE TO [facility] Rx#:[id number] Potassium Chloride 10 mEq/100mL 200 / 200 10 meq In 100 ml @ 100 mls/hr IVPB Q1H PENDING SALE TO [facility] Rx#:[id number] Oral 0 / 0 0 / 0 0 / 0 Output: Urine 300 / 300 0 / 0 Emesis 200 / 200 600 / 600 Other: Meal Dinner NPO Percent of Meal Consumed 0% 0% # Voids 1 Weight 52.7 kg Blood Glucose* 100 86 83 Patient Weight 03/24/17 23:59 Weight 52.7 kg - Labs 03/24/17 05:57 03/24/17 05:57 Diabetes panel 03/24/17 Range/Units 05:57 Sodium 136 (136-145) mEq/L Potassium 3.0 L (3.5-4.5) mEq/L Chloride 103 (98-109) mEq/L Carbon Dioxide 24 (19-29) mEq/L BUN 12 D (7-20) mg/dL Creatinine 0.56 L (0.57-1.11) mg/dL Glucose 97 (70-99) mg/dL Calcium 8.8 (8.6-10.8) mg/dL Calcium panel 03/24/17 Range/Units 05:57 Calcium 8.8 (8.6-10.8) mg/dL Pituitary panel 03/24/17 Range/Units 05:57 Sodium 136 (136-145) mEq/L Potassium 3.0 L (3.5-4.5) mEq/L Chloride 103 (98-109) mEq/L Carbon Dioxide 24 (19-29) mEq/L BUN 12 D (7-20) mg/dL Creatinine 0.56 L (0.57-1.11) mg/dL Glucose 97 (70-99) mg/dL Calcium 8.8 (8.6-10.8) mg/dL Adrenal panel 03/24/17 Range/Units 05:57 Sodium 136 (136-145) mEq/L Potassium 3.0 L (3.5-4.5) mEq/L Chloride 103 (98-109) mEq/L Carbon Dioxide 24 (19-29) mEq/L BUN 12 D (7-20) mg/dL Creatinine 0.56 L (0.57-1.11) mg/dL Glucose 97 (70-99) mg/dL Calcium 8.8 (8.6-10.8) mg/dL Consult Discharge Plan - Plan Referrals: Jose Holley Jr, MD [Primary Care Provider] - (web request sent on 03/24/17) <Enrrique Nagel - Last Filed: 03/24/17 21:00> Date of Encounter: 03/24/17 - Assessment and Plan (1) Abnormal CT scan, liver Current Visit: Yes Status: Acute Objective Vital Signs - Last 8 Hours Temp Pulse Resp BP Pulse Ox 03/24/17 16:53 97.4 F L 82 15 127/66 96 Intake and Output 03/24/17 03/24/17 03/24/17 07:59 15:59 23:59 Intake Total 1000 / 1000 1520 / 1520 0 / 0 Output Total 600 / 600 200 / 200 Balance 400 / 400 1320 / 1320 0 / 0 Intake: IV Fluids 1000 / 1000 1520 / 1520 0.9 % Sodium Chloride 1,000 ML 1000 / 1000 950 / 950 @ 175 mls/hr IVC .Q5H43M [facility] Rx #:[id number] Tazicef 2,000 mg In Water for 20 / 20 inj. (sterile) 20 ML @ 600 mls/ hr IVP Q8H [facility] Rx#:[id number] Magnesium Sulfate Premix 2gm/ 50 / 50 50mL 2 gm In 50 ml @ 48.077 mls /hr IVPB ONCE ONE Rx#: [id number] Flagyl Premix 500 MG/100 ML 500 200 / 200 mg In 100 ml @ 100 mls/hr IVPB Q8H PENDING SALE TO [facility] Rx#:[id number] Potassium Chloride 10 mEq/100mL 300 / 300 10 meq In 100 ml @ 100 mls/hr IVPB Q1H PENDING SALE TO [facility] Rx#:[id number] Oral 0 / 0 0 / 0 0 / 0 Output: Urine 0 / 0 Emesis 600 / 600 200 / 200 Other: Meal NPO NPO Percent of Meal Consumed 0% 0% # Voids 1 Weight 52.7 kg Blood Glucose* 86 83 79 Patient Weight 03/24/17 23:59 Weight 52.7 kg - Labs 03/24/17 05:57 03/24/17 05:57 Diabetes panel 03/24/17 Range/Units 05:57 Sodium 136 (136-145) mEq/L Potassium 3.0 L (3.5-4.5) mEq/L Chloride 103 (98-109) mEq/L Carbon Dioxide 24 (19-29) mEq/L BUN 12 D (7-20) mg/dL Creatinine 0.56 L (0.57-1.11) mg/dL Glucose 97 (70-99) mg/dL Calcium 8.8 (8.6-10.8) mg/dL Calcium panel 03/24/17 Range/Units 05:57 Calcium 8.8 (8.6-10.8) mg/dL Pituitary panel 03/24/17 Range/Units 05:57 Sodium 136 (136-145) mEq/L Potassium 3.0 L (3.5-4.5) mEq/L Chloride 103 (98-109) mEq/L Carbon Dioxide 24 (19-29) mEq/L BUN 12 D (7-20) mg/dL Creatinine 0.56 L (0.57-1.11) mg/dL Glucose 97 (70-99) mg/dL Calcium 8.8 (8.6-10.8) mg/dL Adrenal panel 03/24/17 Range/Units 05:57 Sodium 136 (136-145) mEq/L Potassium 3.0 L (3.5-4.5) mEq/L Chloride 103 (98-109) mEq/L Carbon Dioxide 24 (19-29) mEq/L BUN 12 D (7-20) mg/dL Creatinine 0.56 L (0.57-1.11) mg/dL Glucose 97 (70-99) mg/dL Calcium 8.8 (8.6-10.8) mg/dL - Attending Attestation I have personally performed a face to face evaluation on this patient. I have reviewed and agree with the care plan. History and Exam by me shows: The patient was seen and evaluated on morning rounds. Her abdominal examination was concerning for bowel obstruction. CAT scan with GI contrast was ordered. The CAT scan was compared to the CAT scan from 3 days ago. This demonstrated worsening bowel obstruction but now a clear transition point was seen in the right inguinal area. On physical examination she did have a small knot in the right groin. I was unable to reduce this area I recommended surgical exploration for incarcerated femoral hernia
[2017-03-24] MEDS ORDERED: 0.9 % Sodium Chloride 1,000 ML IVC SCH ×2 (14:57→21:58)
[2017-03-24] MEDS ORDERED: Lidocaine Jelly 6ml 1 APPL/6 ML JEL.PF.APP MM ONE (15:01)
--- NOTE | 2017-03-24 15:37 | Internal Med Progress Note ---
Date of Encounter: 03/24/17 Time of Encounter: 09:10 - Assessment and plan (1) Ileus, unspecified Current Visit: Yes Status: Acute Assessment and plan: Acute nausea and vomiting for about 3-4 days with intermittent diarrhea - vomiting has been persistent Continue empiric IV Ceftazidime, IV Levaquin, IV Flagyl, IV fluids, IV Zofran as needed, IV Protonix, NPO CT head - no acute intracranial abnormality CT chest - masslike consolidation in left upper lobe with endobronchial filling defect with known lung cancer, probable satellite lesions present X-ray pelvis - no acute oseous findings, multiple gas-filled loops of small bowel CT abdomen - portal venous gas, possible early small bowel obstruction versus ileus, multiloculated cystic mass in the right hemipelvis WBC - 18.4 Cultures - pending Gen. surgery consult - recommendations reviewed, no surgical intervention at this time, continue supportive care, appreciate input Cardiac telemetry, labs in a.m., monitor closely 03/23 - patient was on clear liquid diet earlier today, she developed nausea and vomiting, we will keep her NPO again, abdominal pain has improved, no diarrhea 03/24 - patient is currently NPO. She is unable to tolerate any diet. Has had several episodes of vomiting. Repeat CT scan of the abdomen is pending. Continue to monitor closely (2) Abnormal CT scan, liver Current Visit: Yes Status: Acute Assessment and plan: Small amount of portal gas per CT, no evidence of toxic megacolon, no submucosal gas in the small bowel - WBC trending down CT abdomen and pelvis - reviewed Continue supportive care, IV pain medication Repeat CT scan pending Gen. surgery following Cardiac telemetry, labs in a.m. 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, T4N3M0, stage IIIB, additional nodules in the lower lobes - extending to mediastinum Currently on chemotherapy Oncology consult - appreciate input Follow-up with oncology as outpatient (4) Anxiety Current Visit: Yes Status: Chronic Assessment and plan: Chronic anxiety, stable Continue IV Ativan as needed (5) COPD (chronic obstructive pulmonary disease) Current Visit: Yes Status: Chronic Assessment and plan: Probable COPD, stable - not in exacerbation Patient is not on home oxygen, not on any medications at home Continue DuoNeb breathing treatment PRN, O2 via nasal cannula Qualifiers: COPD type: unspecified COPD Qualified Code(s): J44.9 - Chronic obstructive pulmonary disease, unspecified (6) Tobacco abuse Current Visit: Yes Status: Chronic Assessment and plan: Patient currently smokes one pack of cigarettes daily, she has cut down from 3 packs daily about one year ago - smoked for more than 40 years Counseled about cessation, nicotine patch (7) DVT prophylaxis Current Visit: Yes Status: Acute Assessment and plan: Continue heparin subcutaneous - Time Spent With Patient 25 - 35 minutes - Subjective Interval history: Examined this morning. Patient is awake and alert. At baseline mental status. Not in any distress. is at bedside, he states patient has been vomiting the night. Denies chest pain or shortness of breath. Hemodynamically stable. No fever. Patient was on a clear liquid diet yesterday, but has not been able to tolerate it. She has had multiple episodes of bilious vomiting. She is NPO again. No other acute events or complaints. Repeat CT scan of the abdomen is pending. Admitted for abnormal CT scan of liver, which shows small amount of gas and also in the mucosa of stomach. No evidence of submucosal gastric small bowel and no evidence of toxic megacolon. Patient is currently on IV fluids and supportive care. General surgery following. - Constitutional Vitals: Temp Pulse Resp BP Pulse Ox 97.5 F L 80 15 125/76 92 03/24/17 11:30 03/24/17 11:30 03/24/17 11:30 03/24/17 11:30 03/24/17 11:30 General appearance: Present: cooperative, A&O X 3, pleasant, no acute distress, answers questions appropriately Exam: Chronically ill-appearing, generalized weakness - Head Head exam: Present: atraumatic - Eye Eye exam: Present: EOMI Additional comments: pallor - ENT ENT exam: Present: mucous membranes dry - Respiratory Respiratory exam: Present: decreased breath sounds (Slightly decreased in both bases, otherwise clear to auscultation). Absent: chest wall tenderness, rales, rhonchi, wheezes, tachypnea - Cardiovascular Cardiovascular exam: Present: RRR, +S1, +S2 - GI/Abdominal GI/Abdominal exam: Present: soft, tenderness (Mild right lower quadrant and right upper quadrant tenderness), no peritoneal signs. Absent: distended, firm , guarding - Extremities Exam Extremities exam: Present: radial pulses palpable and symmetrical. Absent: calf tenderness, cyanotic, pedal edema - Neurological Exam Neurological exam: Present: alert, CN II-XII intact, oriented X3, no focal deficits. Absent: facial droop, speech deficit Internal Medicine: Result - Labs CBC & Chem 7: 03/24/17 05:57 03/24/17 05:57 Labs: Short CBC 03/24/17 Range/Units 05:57 WBC 18.4 H (4.3-11.1) K/mcL Hgb 10.7 L (11.5-15.4) g/dL Hct 33.7 L (35.3-44.9) % Plt Count 413 H (140-400) K/mcL Neutrophils # 14.5 H (1.6-8.9) K/mcL BMP 03/24/17 05:57 Sodium 136 Potassium 3.0 L Chloride 103 Carbon Dioxide 24 BUN 12 D Creatinine 0.56 L Glucose 97 Calcium 8.8 - Impressions Impressions Abdomen/Pelvis CT 03/24/17 13:30 IMPRESSION: Redemonstration of findings compatible with small bowel obstruction, worsened from prior exam 03/21/2017. Transition point involves a loop of small bowel projecting into right inguinal hernia, likely reflecting mid ileum. There is collapse of ileum and large bowel distal to this. No bowel wall thickening or pneumatosis identified to suggest strangulation. However, there is a small amount of fluid within the hernia itself and incarcerated hernia is not excluded. Clinical correlation suggested. Interval development of minimal ascites. Interval development of small bilateral pleural effusions, left worse than right. Interval resolution of previously noted branching linear lucencies within the liver. Stable mixed solid and cystic multiloculated lesion within the pelvis favored to be ovarian in origin and concerning for neoplasm. D/ / 03/24/2017 14:20:32 David Villalta MD / [email or web address] Interpreting Provider: David Villalta MD Consult Discharge Plan - Plan Referrals: Jose Holley Jr, MD [Primary Care Provider] -
--- NOTE | 2017-03-24 16:04 | Event Note ---
Date of Encounter: 03/24/17 Time of Encounter: 16:00 I saw the patient on morning rounds today at 7 AM. She continued to be nauseated. She was having worsening abdominal pain. I wanted to repeat her CAT scan. CAT scan of the abdomen with GI contrast demonstrated a very surprising finding of incarcerated right inguinal hernia. This had not been a complaint that the patient had. She previously denied a mass in her groin. This was not detected on her first CAT scan. After seeing the results of the CAT scan and reviewing the images myself I went to her room in indeed she has a small inguinal hernia that I was unable to reduce. This appears to be the point of bowel obstruction and if there is a small segment of necrotic intestine this may explain the small amount of portal vein gas. I have recommended repair of incarcerated right inguinal hernia with possible exploratory laparotomy to proceed on an emergent basis
[2017-03-24] MEDS ORDERED: Tetracaine/Benzocaine/Butamben 200MG/SPRAY (100SPY/BOT) MM ONE (16:19)
[2017-03-24 16:41] LABS: Bilirubin,Urine Negative (Negative); Blood,Urine Moderate (Negative); Clarity,Urine Clear (Clear); Color,Urine Dark Yellow (Yellow); Glucose,Urine (UA) 100 mg/dL (Normal); Ketones,Urine 15 mg/dL (Negative); Leukocyte Esterase,Urine Negative (Negative); Nitrite,Urine Positive (Negative); Protein,Urine 30 mg/dL (Neg-Trace); Specific Gravity,Urine > 1.030 (1.010-1.025); Urobilinogen,Urine Normal (Normal)
[2017-03-24 16:43] LABS: Bacteria,Urine None Seen per hpf (None-Few); Hyaline Casts,Urine None Seen per lpf (None-Few); RBC,Urine 30-50 per hpf (0-3); Squamous Epithelial Cell,Urine Many per lpf (None-Few)
--- NOTE | 2017-03-24 19:09 | Anesthesia Evaluation PreOp ---
Date of Encounter: 03/24/17 Time of Encounter: 19:07 - Past History Planned Operation: Right Inguinal Hernia Cardiac History: Denies any Significant Hx (bronch Cardiac History: HTN Pulmonary History: Smoker (60 pk yrs), COPD INCOMING FREIGHT CLERK History: Other (anxiety depression, apamic attack) Other Medical History: Denies Any Significant HX Anesthesia History: No Prior Anesthetic Complications Alcohol Use: none Drug use : none), HTN Pulmonary History: Smoker, Pack/yr (60 pk/yr), COPD, Other (Lung Mass) INCOMING FREIGHT CLERK History: Other (A/D, panic attacks) Other Medical History: Denies Any Significant HX, Other (Active metastatic lung CA) Anesthesia History: No Prior Anesthetic Complications, Past Anesthesia ( bronchoscopy, Left Fem-pop) : No Alcohol Use: none Drug use: none Medications and Allergies Acetaminophen [Tylenol] 500 mg PO Q6HR PRN 09/03/15 [History] Aspirin 325 mg PO DAILY 09/03/15 [History] Latanoprost [Xalatan] 1 drop RIGHT EYE HS 09/03/15 [History] Loperamide [Imodium] 2 mg PO Q4HR PRN #90 capsule 10/28/16 [Rx] Ondansetron [Zofran] 8 mg PO Q8HR PRN #90 tablet 10/28/16 [Rx] OxyCODONE Immed Rel [Roxicodone 5 MG] 5 mg PO Q12H PRN #60 tablet 01/20/17 [Rx] LORazepam [Ativan] 0.5 mg PO AD PRN #2 tablet 02/08/17 [Rx] Dexamethasone [Decadron] 4 mg PO BID #36 tab 03/03/17 [Rx] Prochlorperazine Maleate [Compazine] 10 mg PO Q8HR PRN #90 tablet 03/03/17 [Rx] 3 Allergy/AdvReac Type Severity Reaction Status Date / Time Penicillins Allergy Hives Verified 03/16/17 17:20 Sulfa (Sulfonamide Allergy Hives Verified 03/16/17 17:20 Antibiotics) eggs Allergy See Uncoded 03/16/17 17:20 Comments dairy products AdvReac Flatulence Uncoded 03/16/17 17:20 - Meds/Allergy Pre-op Review Medications Reviewed: Yes Allergies Reviewed: Yes Beta Blockers on Current Med List: No Anesthesia Results - Labs 03/24/17 05:57 03/24/17 05:57 - Imaging EKG: image reviewed (ST, RBBB, poss Lat ischemia) Anesthesia Exam O2 Sat Weight 52.7 kg O2 Sat by Pulse Oximetry 96 O2 Sat by Pulse Oximetry 92 O2 Sat by Pulse Oximetry 97 O2 Sat by Pulse Oximetry 97 O2 Sat by Pulse Oximetry 91 O2 Sat by Pulse Oximetry 95 O2 Sat by Pulse Oximetry 95 Vital Signs Temp Pulse Resp BP Pulse Ox 98.4 F 101 16 125/75 98 03/21/17 16:00 03/21/17 16:00 03/21/17 16:00 03/21/17 16:00 03/21/17 16:00 Vital Signs/O2 Sat, Most Current Temp Pulse Resp BP Pulse Ox 97.4 F L 82 15 127/66 96 03/24/17 16:53 03/24/17 16:53 03/24/17 16:53 03/24/17 16:53 03/24/17 16:53 Height: 4'8'' Weight: 116# NPO (# of Hours): > 8 hrs Pain Scale: 0 Pain Scale Used: Numeric (1 - 10) - HEENT Pupil (Motor): Pupils equal, EOMI Mallampati: II Teeth: Poor dentition Oral Opening: Greater than 3 - INCOMING FREIGHT CLERK LOC: Oriented INCOMING FREIGHT CLERK Motor: Normal RUE, Normal LUE, Normal RLE, Normal LLE, Normal Face INCOMING FREIGHT CLERK Sensory: Normal: RUE, LUE, RLE, LLE, Face - Cardiac Rhythm: Regular Murmur: None JVD: No Carotid Bruit: No - Pulmonary Breath Sounds: bilateral Clear Respiratory Effort: Symmetrical Anesthesia Assess/Plan ASA Score: 3 Modified [place] Scale for Level of Consciousness: Cooperative, oriented, and tranquil Anesthetic Plan: General Autologous Blood: Yes Monitoring Plan: Standard Monitors Recovery Plan: PACU
[2017-03-24] MEDS ORDERED: *HR* Promethazine 25 MG/ML VIAL IVP PRN ×2 (19:26→21:58)
[2017-03-24] MEDS ORDERED: *HR* Labetalol 20 MG/4 ML SYRINGE IVP PRN ×2 (19:26→21:58)
[2017-03-24] MEDS ORDERED: Ondansetron 4 MG/2 ML VIAL IVP ONE ×2 (19:26→21:58)
[2017-03-24] MEDS ORDERED: Albuterol 2.5 MG/3 ML NEBULIZER IH ONE ×2 (19:26→21:58)
[2017-03-24] MEDS ORDERED: *HR* Propofol 200 MG/20 ML VIAL IVP ONE (19:32)
[2017-03-24] MEDS ORDERED: *HR* FentaNYL (PF) 100 MCG/2 ML VIAL ONE (19:32)
[2017-03-24] MEDS ORDERED: *HR* Midazolam HCl 2 MG/2 ML VIAL ONE (19:32)
[2017-03-24] MEDS ORDERED: CefOXitin 2,000 MG VIAL ONE (20:13)
[2017-03-24] MEDS ORDERED: Water for inj. (sterile) 10 ML IV ONE (20:15)
--- NOTE | 2017-03-24 20:46 | Operative Note ---
Date of procedure: 03/24/17 Pre-op diagnosis: Incarcerated right femoral hernia with bowel obstruction Post-op diagnosis: same Procedure: #1 exploratory laparotomy with small bowel resection. #2 repair of incarcerated right femoral hernia Anesthesia: [place] Surgeon: Enrrique Nagel Estimated blood loss (cc): 20 Specimen: Necrotic small bowel segment. Hernia sac Condition: stable Disposition: PACU Procedure in Detail: After informed consent patient was taken to the operating room and placed in the supine position. The patient is identified. The patient was given adequate endotracheal anesthesia. The abdomen is prepped with ChloraPrep. Timeout was taken and the patient is identified. I started with a oblique right inguinal incision and dissected down the level of the external abdominal oblique. The mass was an incarcerated femoral hernia. I was unable to reduce this manually and there appeared to be necrotic small bowel and the thigh. I made a midline lower abdominal incision. An end of the abdomen. There was a cystic mass involving the right tube and ovary approximately 10 cm in size. I did not address the mass the small bowel was reduced back into the abdomen. There was a 5 cm segment that was completely necrotic. I divided the small bowel proximal and distal to the necrotic segment with ERWIN. The mesentery was divided with clamps and hemostatic ligatures. I performed a functional end-to- end anastomosis with ERWIN stapler and closed the resulting enterotomy with TA 60. I circumferentially reinforced the staple line with interrupted 3-0 silk and I closed the mesenteric defect with interrupted 3-0 silk. The abdomen was irrigated with copious amounts of antibiotic containing solution. I closed the midline with looped 0 PDS and the skin with Vicryl and skin clips. I then turned my attention to the right femoral hernia. Working through the groin I was able to identify Amador's ligament inferiorly and the inguinal ligament superiorly. I clearly defined the margins of the femoral hernia. The femoral hernia was repaired with burns paiute tissue only. I used 3 stitches of 0 Nurolon to close the hernia defect. It was noted that prior to closing the defect there is a necrotic hernia sac that was also resected and sent for pathologic evaluation. This gave an excellent technical result I irrigated the wound with copious amounts of antibiotic containing solution and closed the oblique incision with interrupted Vicryl and skin clips. The patient tolerated procedure very well.
[2017-03-24] MEDS ORDERED: Naloxone 0.4 MG/ML INJ IVP PRN (21:58)
[2017-03-24] MEDS ORDERED: Ipratropium/Albuterol Neb 3 ML IH PRN (21:58)
[2017-03-24] MEDS ORDERED: Dextrose Gel 15 GM PO PRN ×2 (21:58)
[2017-03-24] MEDS ORDERED: *HR* HYDROmorphone (PF) 1 MG/ML SYRINGE IVP PRN (21:58)
[2017-03-24] MEDS ORDERED: *HR* Dextrose 50 % in Water (Syg) 50 ML SYRINGE IVP PRN (21:58)
[2017-03-24] MEDS ORDERED: D5% in Water 1,000 ML IVC PRN (21:58)
--- NOTE | 2017-03-24 22:07 | Anesthesia Evaluation Post Op ---
Date of Encounter: 03/24/17 Time of Encounter: 22:04 - Vital Signs Vital Signs: Vital Signs/O2 Sat, Most Current Temp Pulse Resp BP Pulse Ox 98.5 F 80 16 101/57 96 03/24/17 21:20 03/24/17 21:45 03/24/17 21:45 03/24/17 21:45 03/24/17 21:45 - Lungs Lungs: Clear Ascult./Percussion - Airway Airway: Non-obstructed - Cardiovascular Regular Rate - Mental Status Mental Status: Alert & Oriented, Answers Appropriately - Pain Pain Scale: 0 Pain Scale used: Numeric (1 - 10) - Nausea Vomiting Nausea Vomiting: Not Present - Hydration Hydration: Ice chips, Larson catheter - Discharge PostOp Status: Transfer Patient to floor
[2017-03-25] MEDS ORDERED: Water for inj. (sterile) 20 ML IV ONE (02:13)
[2017-03-25] MEDS: *HR* HYDROmorphone (PF) 1 MG/ML SYRINGE IVP PRN ×5 (02:22→22:38)
[2017-03-25] MEDS: cefTAZidime 2,000 MG in Water for inj. (sterile) 20 ML IVP SCH ×3 (02:26→17:34)
[2017-03-25] MEDS: MetroNIDAZOLE 500 MG/100 ML 500 MG/100 ML BAG IVPB SCH ×3 (02:28→19:07)
[2017-03-25 04:52] LABS: Basophils % 0.2 %; Hematocrit 30.3 % (35.3-44.9); Hemoglobin 9.8 g/dL (11.5-15.4); Lymphocytes # 1.7 K/mcL (0.6-4.6); Lymphocytes % 8.6 %; Mean Corpuscular HGB Conc 32.3 g/dL (31.6-35.5); Mean Corpuscular Hemoglobin 28.2 pg (28.0-33.3); Mean Corpuscular Volume 87.3 fL (83.0-100.0); Mean Platelet Volume 8.6 fL (9.4-12.4); Monocytes # 0.8 K/mcL (0.0-1.3); Neutrophils # 16.7 K/mcL (1.6-8.9); Platelet Count 329 K/mcL (140-400); Red Blood Count 3.47 M/mcL (3.82-4.97); Red Cell Distribution Width 14.8 % (11.5-14.5); Segmented Neutrophils % 86.2 %
[2017-03-25 05:17] LABS: Alanine Aminotransferase 13 Units/L (0-55); Albumin/Globulin Ratio 0.7 (1.1-2.2); Alkaline Phosphatase 67 Units/L (38-126); Aspartate Amino Transferase 18 Units/L (5-34); BUN/Creatinine Ratio 13 (6-26); Bilirubin,Total 0.2 mg/dL (0.2-1.2); Blood Urea Nitrogen 7 mg/dL (7-20); Calcium 8.2 mg/dL (8.6-10.8); Carbon Dioxide 22 mEq/L (19-29); Chloride 103 mEq/L (98-109); Globulin 2.9 g/dL (2.4-3.5); Glucose 83 mg/dL (70-99); Magnesium 1.4 mg/dL (1.6-2.6); Osmolality,Calculated 275 (280-300); Potassium 3.4 mEq/L (3.5-4.5); Sodium 134 mEq/L (136-145); Total Protein 4.9 g/dL (6.0-8.3); eGFR For African Americans > 60 (> 60); eGFR For Non-African Americans > 60 (> 60)
[2017-03-25] MEDS: *HR* Heparin 5,000 UNIT/ML VIAL SQ SCH ×2 (06:15→17:44)
[2017-03-25] MEDS ORDERED: Insulin LISPRO 300 UNITS/3 ML VIAL SQ SCH ×2 (07:30→21:00)
[2017-03-25] MEDS: Nicotine 21 MG PATCH.TD24 TD SCH (07:50)
[2017-03-25] MEDS: Pantoprazole 40 MG VIAL IVP SCH (08:48)
[2017-03-25] MEDS ORDERED: Lidocaine -MPF 1% 5 ML AMPUL INFILT ONE (10:23)
[2017-03-25] MEDS ORDERED: 0.9 % Sodium Chloride 1,000 ML IVC SCH (10:26)
--- NOTE | 2017-03-25 10:30 | General Surgery Progress Note ---
<Alexander,Danya Jenifer - Last Filed: 03/25/17 11:15> Date of Encounter: 03/25/17 Time of Encounter: 10:15 - Assessment and Plan (1) Small bowel obstruction Current Visit: Yes Status: Acute POD #1 #1 exploratory laparotomy with small bowel resection. #2 repair of incarcerated right femoral hernia with Dr. Nagel Maintain bowel rest while awaiting return of bowel function NG tube to low intermittent wall suction IV fluids- 100ml/hour (adjust maintenance IV was started at TPN for a total fluid rate of 100ml/hr) PICC line placement TPN started and management per dietitian- total fluid rate will be 100 mL's per hour with maintenance IV and TPN Supportive care and pain control Larson catheter to straight drain for strict I&Os Incentive spirometer every 1 hour while awake Increase activity as tolerated Consult to PT and OT PPI therapy daily Repeat am labs Surgery will continue to follow and assess progress (2) Squamous cell carcinoma of left lung Current Visit: Yes Status: Acute Squamous cell lung cancer on left upper lobe, T4N3M0, stage IIIB, additional nodules in the lower lobes - extending to mediastinum Currently on chemotherapy (3) Pelvic mass Current Visit: Yes Status: Acute Stable mixed solid and cystic multiloculated lesion within the pelvis favored to be ovarian in origin and concerning for neoplasm. (4) DVT prophylaxis Current Visit: Yes Status: Acute Heparin 5000 units subcutaneous twice daily for DVT prophylaxis EPCDs to bilateral lower extremity is for DVT prophylaxis Increase activity as tolerated (5) Protein calorie malnutrition Current Visit: Yes Status: Acute PICC line placement Start TPN therapy today while awaiting return of bowel function- Total fluid rate 100ml/hour (MIV + TPN) Qualifiers: Protein-calorie malnutrition severity: moderate Qualified Code(s): E44.0 - Moderate protein-calorie malnutrition Subjective Patient reports: no new complaints, feels better, still having pain (post surgical pain), no flatus, no bowel movement, afebrile, other (Patient resting comfortably in bed) Objective Vital Signs - Last 8 Hours Temp Pulse Resp BP Pulse Ox 03/25/17 09:27 97 03/25/17 07:13 98.1 F 86 13 145/74 97 03/25/17 04:05 97.5 F L 81 16 117/65 95 Intake and Output 03/24/17 03/25/17 03/25/17 23:59 07:59 15:59 Intake Total 0 / 0 0 / 0 Output Total 370 / 370 Balance -370 / -370 0 / 0 Intake: IV Fluids Tazicef 2,000 mg In Water for inj. (sterile) 20 ML @ 600 mls/ hr IVP Q8H [facility] Rx#:[id number] Oral 0 / 0 0 / 0 Output: Estimated Blood Loss Urine Amount (Catheter) 350 / 350 Other: Meal NPO NPO Percent of Meal Consumed 0% Weight 53.2 kg Blood Glucose* 89 73 Patient Weight 03/25/17 23:59 Weight 53.2 kg - General physical appearance well developed, well nourished, no distress - Eyes normal ocular movement - ENT dry mucosa, atraumatic, normocephalic - Neck Neck exam: trachea midline - Respiratory normal respiratory effort, clear to auscultation - Cardiovascular Cardiovascular exam: Present: RRR - Abdomen Abdomen: Present: soft, tender (Expected postoperative tenderness), wound (NG tube to low intermittent wall suction with 500 mL's of bilious drainage noted since midnight) - Incision Incision: Present: clean and dry (Surgical dressing in place), intact - Genitourinary other (Larson catheter to straight drain with clear, yellow urine) - Neurologic CN 2-12 grossly intact - Psychiatric oriented to time, oriented to person, oriented to place, speech is normal, memory intact - Labs 03/25/17 04:30 03/25/17 04:26 Diabetes panel 03/25/17 Range/Units 04:26 Sodium 134 L (136-145) mEq/L Potassium 3.4 L (3.5-4.5) mEq/L Chloride 103 (98-109) mEq/L Carbon Dioxide 22 (19-29) mEq/L BUN 7 (7-20) mg/dL Creatinine 0.52 L (0.57-1.11) mg/dL Glucose 83 (70-99) mg/dL Calcium 8.2 L (8.6-10.8) mg/dL AST 18 (5-34) Units/L ALT 13 (0-55) Units/L Alkaline Phosphatase 67 (38-126) Units/L Albumin 2.0 L (3.5-5.0) g/dL Calcium panel 03/25/17 Range/Units 04:26 Calcium 8.2 L (8.6-10.8) mg/dL Albumin 2.0 L (3.5-5.0) g/dL Pituitary panel 03/25/17 Range/Units 04:26 Sodium 134 L (136-145) mEq/L Potassium 3.4 L (3.5-4.5) mEq/L Chloride 103 (98-109) mEq/L Carbon Dioxide 22 (19-29) mEq/L BUN 7 (7-20) mg/dL Creatinine 0.52 L (0.57-1.11) mg/dL Glucose 83 (70-99) mg/dL Calcium 8.2 L (8.6-10.8) mg/dL Adrenal panel 03/25/17 Range/Units 04:26 Sodium 134 L (136-145) mEq/L Potassium 3.4 L (3.5-4.5) mEq/L Chloride 103 (98-109) mEq/L Carbon Dioxide 22 (19-29) mEq/L BUN 7 (7-20) mg/dL Creatinine 0.52 L (0.57-1.11) mg/dL Glucose 83 (70-99) mg/dL Calcium 8.2 L (8.6-10.8) mg/dL Total Bilirubin 0.2 (0.2-1.2) mg/dL AST 18 (5-34) Units/L ALT 13 (0-55) Units/L Alkaline Phosphatase 67 (38-126) Units/L Albumin 2.0 L (3.5-5.0) g/dL - VTE Documentation of Mechanical Device: Intermittent pneumatic compression device Consult Discharge Plan - Plan Referrals: Jose Holley Jr, MD [Primary Care Provider] - (web request sent on 03/24/17) - Attending Attestation For this encounter, I have reviewed the SENIOR MECHANICAL PROJECT ENGINEER or PA documentation, treatment plan, and medical decision making; and I have had face to face time with this patient. <Enrrique Nagel - Last Filed: 03/25/17 16:35> Date of Encounter: 03/25/17 - Assessment and Plan (1) Abnormal CT scan, liver Current Visit: Yes Status: Acute Objective Vital Signs - Last 8 Hours Temp Pulse Resp BP Pulse Ox 03/25/17 16:01 98.1 F 80 17 131/69 97 03/25/17 10:43 98.0 F 81 17 126/69 96 03/25/17 09:27 97 Intake and Output 03/25/17 03/25/17 03/25/17 07:59 15:59 23:59 Intake Total 120 / 120 100 / 100 Output Total 1000 / 1000 Balance 120 / 120 -900 / -900 Intake: IV Fluids 120 / 120 100 / 100 Tazicef 2,000 mg In Water for 20 inj. (sterile) 20 ML @ 600 mls/ hr IVP Q8H [facility] Rx#:[id number] Flagyl Premix 500 MG/100 ML 500 100 / 100 mg In 100 ml @ 100 mls/hr IVPB Q8H [facility] Rx#:[id number] Potassium Chloride 10 mEq/100mL 100 / 100 10 meq In 100 ml @ 100 mls/hr IVPB Q1H [facility] Rx#:[id number] Oral 0 / 0 Output: Urine 0 / 0 Catheter 500 / 500 Gastric Drainage 500 / 500 Other: Meal NPO Weight 53.2 kg Blood Glucose* 73 76 Patient Weight 03/25/17 23:59 Weight 53.2 kg - Labs 03/25/17 04:30 03/25/17 04:26 Diabetes panel 03/25/17 Range/Units 04:26 Sodium 134 L (136-145) mEq/L Potassium 3.4 L (3.5-4.5) mEq/L Chloride 103 (98-109) mEq/L Carbon Dioxide 22 (19-29) mEq/L BUN 7 (7-20) mg/dL Creatinine 0.52 L (0.57-1.11) mg/dL Glucose 83 (70-99) mg/dL Calcium 8.2 L (8.6-10.8) mg/dL AST 18 (5-34) Units/L ALT 13 (0-55) Units/L Alkaline Phosphatase 67 (38-126) Units/L Albumin 2.0 L (3.5-5.0) g/dL Calcium panel 03/25/17 Range/Units 04:26 Calcium 8.2 L (8.6-10.8) mg/dL Albumin 2.0 L (3.5-5.0) g/dL Pituitary panel 03/25/17 Range/Units 04:26 Sodium 134 L (136-145) mEq/L Potassium 3.4 L (3.5-4.5) mEq/L Chloride 103 (98-109) mEq/L Carbon Dioxide 22 (19-29) mEq/L BUN 7 (7-20) mg/dL Creatinine 0.52 L (0.57-1.11) mg/dL Glucose 83 (70-99) mg/dL Calcium 8.2 L (8.6-10.8) mg/dL Adrenal panel 03/25/17 Range/Units 04:26 Sodium 134 L (136-145) mEq/L Potassium 3.4 L (3.5-4.5) mEq/L Chloride 103 (98-109) mEq/L Carbon Dioxide 22 (19-29) mEq/L BUN 7 (7-20) mg/dL Creatinine 0.52 L (0.57-1.11) mg/dL Glucose 83 (70-99) mg/dL Calcium 8.2 L (8.6-10.8) mg/dL Total Bilirubin 0.2 (0.2-1.2) mg/dL AST 18 (5-34) Units/L ALT 13 (0-55) Units/L Alkaline Phosphatase 67 (38-126) Units/L Albumin 2.0 L (3.5-5.0) g/dL - Attending Attestation Doing well POD 1 Pain control is good. PICC and TPN Enrrique Nagel MD FACS
[2017-03-25] MEDS: Insulin LISPRO 300 UNITS/3 ML VIAL SQ SCH ×2 (11:50→17:56)
[2017-03-25] MEDS ORDERED: D10% in Water 500 ML IVC PRN (12:12)
[2017-03-25] MEDS: *HR* LORazepam 2 MG/ML VIAL IVP PRN (16:13)
--- NOTE | 2017-03-25 16:53 | Internal Med Progress Note ---
Date of Encounter: 03/25/17 Time of Encounter: 10:20 - Assessment and plan (1) Small bowel obstruction Current Visit: Yes Status: Acute Assessment and plan: Acute small bowel obstruction and incarcerated hernia seen on CT scan - status post exploratory laparoscopy with small bowel resection and repair of incarcerated hernia - postop day #1 Continue empiric IV Ceftazidime, IV Levaquin, IV Flagyl, IV fluids, IV Zofran as needed, IV Protonix, NPO, TPN IV Dilaudid as needed for pain, incentive spirometry CT head - no acute intracranial abnormality CT chest - masslike consolidation in left upper lobe with endobronchial filling defect with known lung cancer, probable satellite lesions present X-ray pelvis - no acute oseous findings, multiple gas-filled loops of small bowel Repeat CT abdomen - small bowel obstruction and incarcerated hernia WBC - 19.4 Cultures - no growth Gen. surgery - recommendations reviewed, continue NG tube, supportive care Cardiac telemetry, labs in a.m., monitor closely 03/23 - patient was on clear liquid diet earlier today, she developed nausea and vomiting, we will keep her NPO again, abdominal pain has improved, no diarrhea 03/24 - patient is currently NPO. She is unable to tolerate any diet. Has had several episodes of vomiting. Repeat CT scan of the abdomen is pending. Continue to monitor closely 03/25 - postop day #1. NG tube in place. Patient is doing well at this time. Complains of mild abdominal pain at surgical site. Surgical dressing intact and there is no bleeding. (2) Abnormal CT scan, liver Current Visit: Yes Status: Acute Assessment and plan: Small amount of portal gas per CT, no evidence of toxic megacolon, no submucosal gas in the small bowel Repeat CT scan revealed small bowel obstruction and incarcerated hernia Continue supportive care, IV pain medication Gen. surgery following - status post small bowel obstruction and repair of incarcerated femoral hernia Cardiac telemetry, labs in a.m. 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 (4) Anxiety Current Visit: Yes Status: Chronic Assessment and plan: Chronic anxiety, stable Continue IV Ativan PRN (5) COPD (chronic obstructive pulmonary disease) Current Visit: Yes Status: Chronic Assessment and plan: Probable COPD, stable - not in exacerbation Patient is not on home oxygen, not on any medications at home Continue DuoNeb breathing treatment PRN, O2 via nasal cannula Qualifiers: COPD type: unspecified COPD Qualified Code(s): J44.9 - Chronic obstructive pulmonary disease, unspecified (6) Tobacco abuse Current Visit: Yes Status: Chronic Assessment and plan: Patient currently smokes one pack of cigarettes daily, she has cut down from 3 packs daily about one year ago - smoked for more than 40 years Counseled about cessation, nicotine patch (7) DVT prophylaxis Current Visit: Yes Status: Acute Assessment and plan: Continue Heparin subcutaneous - Subjective Interval history: Examined this morning. Patient is awake and alert. At baseline mental status. Not in any distress. Complains of mild abdominal pain at surgical site. No nausea or vomiting. States she feels better. NG tube in place. Denies chest pain or shortness of breath. Hemodynamically stable. No fever. Patient underwent ex-lap with small bowel resection and repair of incarcerated right femoral hernia. Tolerated procedure well. Postop day #1. General surgery following. - Constitutional Vitals: Temp Pulse Resp BP Pulse Ox 98.1 F 80 17 131/69 97 03/25/17 16:01 03/25/17 16:01 03/25/17 16:01 03/25/17 16:01 03/25/17 16:01 General appearance: Present: cooperative, A&O X 3, pleasant, no acute distress, answers questions appropriately Exam: Chronically ill-appearing, generalized weakness - Head Head exam: Present: atraumatic - Eye Eye exam: Present: EOMI - ENT ENT exam: Present: mucous membranes dry Additional comments: NG tube in place - Respiratory Respiratory exam: Present: CTAB. Absent: accessory muscle use, rales, rhonchi, wheezes, tachypnea - Cardiovascular Cardiovascular exam: Present: RRR, +S1, +S2 - GI/Abdominal GI/Abdominal exam: Present: diminished bowel sounds, soft, no peritoneal signs. Absent: distended, firm, guarding, tenderness Additional comments: Surgical dressing intact, no bleeding - Extremities Exam Extremities exam: Present: radial pulses palpable and symmetrical. Absent: calf tenderness, cyanotic, pedal edema - Neurological Exam Neurological exam: Present: alert, oriented X3, no focal deficits. Absent: facial droop, speech deficit Internal Medicine: Result - Labs CBC & Chem 7: 03/25/17 04:30 03/25/17 04:26 Labs: Short CBC 03/25/17 Range/Units 04:30 WBC 19.4 H (4.3-11.1) K/mcL Hgb 9.8 L (11.5-15.4) g/dL Hct 30.3 L (35.3-44.9) % Plt Count 329 (140-400) K/mcL Neutrophils # 16.7 H (1.6-8.9) K/mcL BMP 03/25/17 04:26 Sodium 134 L Potassium 3.4 L Chloride 103 Carbon Dioxide 22 BUN 7 Creatinine 0.52 L Glucose 83 Calcium 8.2 L Liver Function 03/25/17 Range/Units 04:26 Total Bilirubin 0.2 (0.2-1.2) mg/dL AST 18 (5-34) Units/L ALT 13 (0-55) Units/L Alkaline Phosphatase 67 (38-126) Units/L Albumin 2.0 L (3.5-5.0) g/dL - VTE Documentation of Mechanical Device: Intermittent pneumatic compression device Consult Discharge Plan - Plan Referrals: Jose Holley Jr, MD [Primary Care Provider] - (web request sent on 03/24/17)
[2017-03-25] MEDS ORDERED: Clinimix E 5%-20% SOLUTION 2,000 ML with MVI, adult with vitamin K 10 ML IVC SCH (17:00)
[2017-03-25] MEDS: Levofloxacin 750 MG/150 ML 750 MG/150 ML BAG IVPB SCH (17:39)
[2017-03-25] MEDS: 0.9 % Sodium Chloride 1,000 ML IVC SCH (18:52)
[2017-03-25] MEDS: Latanoprost 2.5 ML BOTTLE RIGHT EYE SCH (20:07)
[2017-03-25] MEDS: *HR* Promethazine 25 MG/ML VIAL IVP PRN (22:42)
[2017-03-26] MEDS: Insulin LISPRO 300 UNITS/3 ML VIAL SQ SCH ×4 (00:47→21:51)
[2017-03-26] MEDS: cefTAZidime 2,000 MG in Water for inj. (sterile) 20 ML IVP SCH ×3 (02:48→17:27)
[2017-03-26] MEDS: *HR* HYDROmorphone (PF) 1 MG/ML SYRINGE IVP PRN ×5 (02:49→22:08)
[2017-03-26] MEDS: MetroNIDAZOLE 500 MG/100 ML 500 MG/100 ML BAG IVPB SCH ×3 (02:53→17:52)
[2017-03-26] MEDS: 0.9 % Sodium Chloride 1,000 ML IVC SCH (03:00)
[2017-03-26 05:37] LABS: Basophils # 0.1 K/mcL (0.0-0.2); Basophils % 0.2 %; Eosinophils # 0.2 K/mcL (0.0-0.6); Eosinophils % 1.1 %; Hematocrit 29.8 % (35.3-44.9); Hemoglobin 9.7 g/dL (11.5-15.4); Immature Granulocytes % 2.2 % (0-4); Lymphocytes # 3.6 K/mcL (0.6-4.6); Lymphocytes % 17.3 %; Mean Corpuscular HGB Conc 32.6 g/dL (31.6-35.5); Mean Corpuscular Hemoglobin 27.7 pg (28.0-33.3); Mean Corpuscular Volume 85.1 fL (83.0-100.0); Mean Platelet Volume 8.4 fL (9.4-12.4); Monocytes # 1.6 K/mcL (0.0-1.3); Monocytes % 7.8 %; Neutrophils # 14.7 K/mcL (1.6-8.9); Platelet Count 327 K/mcL (140-400); Red Cell Distribution Width 14.8 % (11.5-14.5); Segmented Neutrophils % 71.4 %
[2017-03-26] MEDS: *HR* Heparin 5,000 UNIT/ML VIAL SQ SCH ×2 (05:37→17:27)
[2017-03-26 05:50] LABS: Alanine Aminotransferase 9 Units/L (0-55); Albumin/Globulin Ratio 0.7 (1.1-2.2); Alkaline Phosphatase 60 Units/L (38-126); Aspartate Amino Transferase 16 Units/L (5-34); BUN/Creatinine Ratio 12 (6-26); Bilirubin,Total 0.2 mg/dL (0.2-1.2); Blood Urea Nitrogen 6 mg/dL (7-20); Calcium 8.3 mg/dL (8.6-10.8); Carbon Dioxide 28 mEq/L (19-29); Chloride 99 mEq/L (98-109); Globulin 2.9 g/dL (2.4-3.5); Glucose 160 mg/dL (70-99); Magnesium 1.3 mg/dL (1.6-2.6); Osmolality,Calculated 275 (280-300); Potassium 2.7 mEq/L (3.5-4.5); Sodium 132 mEq/L (136-145); Total Protein 4.8 g/dL (6.0-8.3); Triglycerides 107 mg/dL (< 150); eGFR For African Americans > 60 (> 60); eGFR For Non-African Americans > 60 (> 60)
[2017-03-26 05:51] LABS: Albumin 1.9 g/dL (3.5-5.0)
[2017-03-26 05:52] LABS: Phosphorous 0.9 mg/dL (2.3-4.7)
[2017-03-26] MEDS: Ondansetron 4 MG/2 ML VIAL IVP PRN (07:09)
[2017-03-26] MEDS: Nicotine 21 MG PATCH.TD24 TD SCH (08:52)
[2017-03-26] MEDS: Pantoprazole 40 MG VIAL IVP SCH (08:52)
[2017-03-26] MEDS: *HR* Promethazine 25 MG/ML VIAL IVP PRN ×2 (11:15→22:28)
[2017-03-26] MEDS ORDERED: Polyethylene Glycol 3350 255 GM POWDER PO ONE (13:04)
--- NOTE | 2017-03-26 13:04 | General Surgery Consult Note ---
Date of Encounter: 03/26/17 Time of Encounter: 13:03 History of Present Illness Consult date: 03/26/17 Reason for consult: other (Dark stools, diarrhea) Requesting physician: Joaquin Barajas Past Med Surg Social Fam HX - Past Medical History Medical history: arthritis, cancer, GERD, migraine, other Psychiatric history: anxiety, depression, panic disorder - Past Surgical History Surgical History: vascular surgery - Social History Smoking Status: Current every day smoker Smokeless Tobacco Status: No Alcohol use: none Drug use: none - Family History Mother Living Status: Father Living Status: Medications and Allergies Acetaminophen [Tylenol] 500 mg PO Q6HR PRN 09/03/15 [History] Aspirin 325 mg PO DAILY 09/03/15 [History] Latanoprost [Xalatan] 1 drop RIGHT EYE HS 09/03/15 [History] Loperamide [Imodium] 2 mg PO Q4HR PRN #90 capsule 10/28/16 [Rx] Ondansetron [Zofran] 8 mg PO Q8HR PRN #90 tablet 10/28/16 [Rx] OxyCODONE Immed Rel [Roxicodone 5 MG] 5 mg PO Q12H PRN #60 tablet 01/20/17 [Rx] LORazepam [Ativan] 0.5 mg PO AD PRN #2 tablet 02/08/17 [Rx] Dexamethasone [Decadron] 4 mg PO BID #36 tab 03/03/17 [Rx] Prochlorperazine Maleate [Compazine] 10 mg PO Q8HR PRN #90 tablet 03/03/17 [Rx] 3 Allergy/AdvReac Type Severity Reaction Status Date / Time Penicillins Allergy Hives Verified 03/16/17 17:20 Sulfa (Sulfonamide Allergy Hives Verified 03/16/17 17:20 Antibiotics) eggs Allergy See Uncoded 03/16/17 17:20 Comments dairy products AdvReac Flatulence Uncoded 03/16/17 17:20 Review of Systems All systems PM: A 10-system review of systems was performed and is negative for pertinent findings except as documented above in the HPI. General Surgery Exam Initial Vital Signs Temp Pulse Resp BP Pulse Ox 98.4 F 101 16 125/75 98 03/21/17 16:00 03/21/17 16:00 03/21/17 16:00 03/21/17 16:00 03/21/17 16:00 Exam Initial Vital Signs Temp Pulse Resp BP Pulse Ox 98.4 F 101 16 125/75 98 03/21/17 16:00 03/21/17 16:00 03/21/17 16:00 03/21/17 16:00 03/21/17 16:00 Results - Labs 03/26/17 05:27 03/26/17 05:27 Abnormal lab results WBC 20.6 K/mcL (4.3-11.1) H 03/26/17 05:27 RBC 3.50 M/mcL (3.82-4.97) L 03/26/17 05:27 Hgb 9.7 g/dL (11.5-15.4) L 03/26/17 05:27 Hct 29.8 % (35.3-44.9) L 03/26/17 05:27 MCH 27.7 pg (28.0-33.3) L 03/26/17 05:27 RDW 14.8 % (11.5-14.5) H 03/26/17 05:27 MPV 8.4 fL (9.4-12.4) L 03/26/17 05:27 Band Neutrophils % 12.0 % (0-4) H 03/21/17 16:24 Neutrophils # 14.7 K/mcL (1.6-8.9) H 03/26/17 05:27 Monocytes # 1.6 K/mcL (0.0-1.3) H 03/26/17 05:27 Platelet Estimate Marked Increase (Normal) H 03/21/17 16:24 Sodium 132 mEq/L (136-145) L 03/26/17 05:27 Potassium 2.7 mEq/L (3.5-4.5) L 03/26/17 05:27 BUN 6 mg/dL (7-20) L 03/26/17 05:27 Creatinine 0.51 mg/dL (0.57-1.11) L 03/26/17 05:27 Glucose 160 mg/dL (70-99) H 03/26/17 05:27 POC Glucose 172 (58-89) H 03/26/17 11:22 Calculated Osmolality 275 (280-300) L 03/26/17 05:27 Calcium 8.3 mg/dL (8.6-10.8) L 03/26/17 05:27 Phosphorus 0.9 mg/dL (2.3-4.7) L* 03/26/17 05:27 Magnesium 1.3 mg/dL (1.6-2.6) L 03/26/17 05:27 Serum Total Protein 4.8 g/dL (6.0-8.3) L 03/26/17 05:27 Albumin 1.9 g/dL (3.5-5.0) L 03/26/17 05:27 Albumin/Globulin Ratio 0.7 (1.1-2.2) L 03/26/17 05:27 Prealbumin 10.0 mg/dL (16.0-38.0) L 03/26/17 05:27 Ur Specific [place] > 1.030 (1.010-1.025) H 03/24/17 16:22 Urine Protein 30 mg/dL (Neg-Trace) H 03/24/17 16:22 Urine Glucose (UA) 100 mg/dL (Normal) H 03/24/17 16:22 Urine Ketones 15 mg/dL (Negative) H 03/24/17 16:22 Urine Blood Moderate (Negative) H 03/24/17 16:22 Urine Nitrite Positive (Negative) A 03/24/17 16:22 Urine Microscopic RBC 30-50 per hpf (0-3) H 03/24/17 16:22 Urine Microscopic WBC 3-5 per hpf (0-3) H 03/24/17 16:22 Ur Squamous Epith Cells Many per lpf (None-Few) H 03/24/17 16:22 Urine Yeast Few per hpf (None Seen) H 03/22/17 01:50 Ur Culture Indicated? YES (NO) A 03/24/17 16:22 Diabetes panel 03/26/17 Range/Units 05:27 Sodium 132 L (136-145) mEq/L Potassium 2.7 L (3.5-4.5) mEq/L Chloride 99 (98-109) mEq/L Carbon Dioxide 28 (19-29) mEq/L BUN 6 L (7-20) mg/dL Creatinine 0.51 L (0.57-1.11) mg/dL Glucose 160 H (70-99) mg/dL Calcium 8.3 L (8.6-10.8) mg/dL AST 16 (5-34) Units/L ALT 9 (0-55) Units/L Alkaline Phosphatase 60 (38-126) Units/L Albumin 1.9 L (3.5-5.0) g/dL Triglycerides 107 (< 150) mg/dL Calcium panel 03/26/17 Range/Units 05:27 Calcium 8.3 L (8.6-10.8) mg/dL Phosphorus 0.9 L* (2.3-4.7) mg/dL Albumin 1.9 L (3.5-5.0) g/dL Pituitary panel 03/26/17 Range/Units 05:27 Sodium 132 L (136-145) mEq/L Potassium 2.7 L (3.5-4.5) mEq/L Chloride 99 (98-109) mEq/L Carbon Dioxide 28 (19-29) mEq/L BUN 6 L (7-20) mg/dL Creatinine 0.51 L (0.57-1.11) mg/dL Glucose 160 H (70-99) mg/dL Calcium 8.3 L (8.6-10.8) mg/dL Adrenal panel 03/26/17 Range/Units 05:27 Sodium 132 L (136-145) mEq/L Potassium 2.7 L (3.5-4.5) mEq/L Chloride 99 (98-109) mEq/L Carbon Dioxide 28 (19-29) mEq/L BUN 6 L (7-20) mg/dL Creatinine 0.51 L (0.57-1.11) mg/dL Glucose 160 H (70-99) mg/dL Calcium 8.3 L (8.6-10.8) mg/dL Total Bilirubin 0.2 (0.2-1.2) mg/dL AST 16 (5-34) Units/L ALT 9 (0-55) Units/L Alkaline Phosphatase 60 (38-126) Units/L Albumin 1.9 L (3.5-5.0) g/dL All other labs normal. Consult Discharge Plan - Plan Referrals: Jose Holley Jr, MD [Primary Care Provider] - (web request sent on 03/24/17)
--- NOTE | 2017-03-26 13:57 | General Surgery Progress Note ---
Date of Encounter: 03/26/17 Time of Encounter: 13:55 - Assessment and Plan (1) Small bowel obstruction Current Visit: Yes Status: Acute Patient is s/p a SBR and repair of a femoral hernia. Await return of bowel function. Continue with NGT decompression. Will start dressing changes today. Subjective Patient reports: other (Patient without flatus. Noted abdominal pain. ) Objective Vital Signs - Last 8 Hours Temp Pulse Resp BP Pulse Ox 03/26/17 11:19 97.7 F 80 15 101/58 94 03/26/17 07:33 97.6 F 77 17 109/60 94 Intake and Output 03/25/17 03/26/17 03/26/17 23:59 07:59 15:59 Intake Total 120 / 120 370 / 370 100 / 100 Output Total 400 / 400 550 / 550 Balance -280 / -280 -180 / -180 100 / 100 Intake: IV Fluids 120 / 120 370 / 370 100 / 100 0.9 % Sodium Chloride 1,000 ML 0 / 0 @ 55 mls/hr IVC .[id number] [facility] Rx #:[id number] Tazicef 2,000 mg In Water for 20 / 20 20 / 20 inj. (sterile) 20 ML @ 600 mls/ hr IVP Q8H [facility] Rx#:[id number] Intralipid 20% 250 ML @ 21 mls/ 250 / 250 hr IVPB DAILY@1700 [facility] Rx#: [id number] Flagyl Premix 500 MG/100 ML 500 100 / 100 100 / 100 mg In 100 ml @ 100 mls/hr IVPB Q8H [facility] Rx#:[id number] Potassium Chloride 10 mEq/100mL 100 / 100 10 meq In 100 ml @ 100 mls/hr IVPB Q1H [facility] Rx#:[id number] Output: Catheter 300 / 300 325 / 325 Gastric Drainage 100 / 100 225 / 225 Other: Blood Glucose* 146 152 172 - General physical appearance no distress - Abdomen Abdomen: Present: soft, tender (Noted midline incisional pain. No bowel sounds. Incision CDI. No erythema or drainage.) - Labs 03/26/17 05:27 03/26/17 05:27 Diabetes panel 03/26/17 Range/Units 05:27 Sodium 132 L (136-145) mEq/L Potassium 2.7 L (3.5-4.5) mEq/L Chloride 99 (98-109) mEq/L Carbon Dioxide 28 (19-29) mEq/L BUN 6 L (7-20) mg/dL Creatinine 0.51 L (0.57-1.11) mg/dL Glucose 160 H (70-99) mg/dL Calcium 8.3 L (8.6-10.8) mg/dL AST 16 (5-34) Units/L ALT 9 (0-55) Units/L Alkaline Phosphatase 60 (38-126) Units/L Albumin 1.9 L (3.5-5.0) g/dL Triglycerides 107 (< 150) mg/dL Calcium panel 03/26/17 Range/Units 05:27 Calcium 8.3 L (8.6-10.8) mg/dL Phosphorus 0.9 L* (2.3-4.7) mg/dL Albumin 1.9 L (3.5-5.0) g/dL Pituitary panel 03/26/17 Range/Units 05:27 Sodium 132 L (136-145) mEq/L Potassium 2.7 L (3.5-4.5) mEq/L Chloride 99 (98-109) mEq/L Carbon Dioxide 28 (19-29) mEq/L BUN 6 L (7-20) mg/dL Creatinine 0.51 L (0.57-1.11) mg/dL Glucose 160 H (70-99) mg/dL Calcium 8.3 L (8.6-10.8) mg/dL Adrenal panel 03/26/17 Range/Units 05:27 Sodium 132 L (136-145) mEq/L Potassium 2.7 L (3.5-4.5) mEq/L Chloride 99 (98-109) mEq/L Carbon Dioxide 28 (19-29) mEq/L BUN 6 L (7-20) mg/dL Creatinine 0.51 L (0.57-1.11) mg/dL Glucose 160 H (70-99) mg/dL Calcium 8.3 L (8.6-10.8) mg/dL Total Bilirubin 0.2 (0.2-1.2) mg/dL AST 16 (5-34) Units/L ALT 9 (0-55) Units/L Alkaline Phosphatase 60 (38-126) Units/L Albumin 1.9 L (3.5-5.0) g/dL - VTE Documentation of Mechanical Device: Intermittent pneumatic compression device Consult Discharge Plan - Plan Referrals: Jose Holley Jr, MD [Primary Care Provider] - (web request sent on 03/24/17)
--- NOTE | 2017-03-26 14:44 | Internal Med Progress Note ---
Date of Encounter: 03/26/17 Time of Encounter: 10:20 - Assessment and plan (1) Small bowel obstruction Current Visit: Yes Status: Acute Assessment and plan: Acute small bowel obstruction and incarcerated hernia seen on CT scan - status post exploratory laparoscopy with small bowel resection and repair of incarcerated hernia - postop day #2 Continue empiric IV Ceftazidime, IV Levaquin, IV Flagyl, IV fluids, IV Zofran as needed, IV Protonix, NPO, TPN IV Dilaudid as needed for pain, incentive spirometry CT head - no acute intracranial abnormality CT chest - masslike consolidation in left upper lobe with endobronchial filling defect with known lung cancer, probable satellite lesions present X-ray pelvis - no acute oseous findings, multiple gas-filled loops of small bowel Repeat CT abdomen - small bowel obstruction and incarcerated hernia WBC - 20.6 Cultures - no growth Gen. surgery - recommendations reviewed, continue NG tube, supportive care Cardiac telemetry, labs in a.m., monitor closely 03/25 - postop day #1. NG tube in place. Patient is doing well at this time. Complains of mild abdominal pain at surgical site. Surgical dressing intact and there is no bleeding. 03/26 - postop day #2. Mild pain at surgical site, dressing intact with no bleeding. General surgery following. NG tube in place. Awaiting return of bowel function. Dressing change today. No fever. Hemodynamically stable. Continue IV antibiotics. Leukocytosis persistent. - Replace electrolytes including potassium, magnesium and phosphorus. Labs in a.m. (2) Abnormal CT scan, liver Current Visit: Yes Status: Acute Assessment and plan: Small amount of portal gas per CT, no evidence of toxic megacolon, no submucosal gas in the small bowel Repeat CT scan revealed small bowel obstruction and incarcerated hernia Continue supportive care, IV pain medication Gen. surgery following - status post small bowel obstruction and repair of incarcerated femoral hernia Cardiac telemetry, labs in a.m. 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 (4) Anxiety Current Visit: Yes Status: Chronic Assessment and plan: Chronic anxiety, stable Continue IV Ativan PRN (5) COPD (chronic obstructive pulmonary disease) Current Visit: Yes Status: Chronic Assessment and plan: Probable COPD, stable - not in exacerbation Patient is not on home oxygen, not on any medications at home Continue DuoNeb breathing treatment PRN, O2 via nasal cannula Qualifiers: COPD type: unspecified COPD Qualified Code(s): J44.9 - Chronic obstructive pulmonary disease, unspecified (6) Tobacco abuse Current Visit: Yes Status: Chronic Assessment and plan: Patient currently smokes one pack of cigarettes daily, she has cut down from 3 packs daily about one year ago - smoked for more than 40 years Counseled about cessation, nicotine patch (7) DVT prophylaxis Current Visit: Yes Status: Acute Assessment and plan: Continue Heparin subcutaneous - Time Spent With Patient 25 - 35 minutes - Subjective Interval history: Examined this morning. Patient is awake and alert. At baseline mental status. Not in any distress. Complains of mild abdominal pain at surgical site. Complains of generalized weakness. No nausea or vomiting. States she feels better. NG tube in place. Denies chest pain or shortness of breath. Hemodynamically stable. No fever. Patient underwent ex-lap with small bowel resection and repair of incarcerated right femoral hernia. Tolerated procedure well. Postop day #2. General surgery following. Awaiting return of bowel function. Currently on TPN. - Constitutional Vitals: Temp Pulse Resp BP Pulse Ox 97.7 F 80 15 101/58 94 03/26/17 11:19 03/26/17 11:19 03/26/17 11:19 03/26/17 11:19 03/26/17 11:19 General appearance: Present: cooperative, A&O X 3, pleasant, no acute distress, answers questions appropriately Exam: Chronically ill-appearing, generalized weakness - Head Head exam: Present: atraumatic - Eye Eye exam: Present: EOMI - ENT ENT exam: Present: mucous membranes dry Additional comments: NG tube in place - Respiratory Respiratory exam: Present: CTAB. Absent: accessory muscle use, chest wall tenderness, rales, rhonchi, wheezes, tachypnea - Cardiovascular Cardiovascular exam: Present: RRR, +S1, +S2 - GI/Abdominal GI/Abdominal exam: Present: soft, tenderness (Mild tenderness over the midline) , no peritoneal signs. Absent: distended, firm, guarding Additional comments: Surgical dressing intact, no bleeding - Extremities Exam Extremities exam: Present: radial pulses palpable and symmetrical. Absent: calf tenderness, cyanotic, pedal edema - Neurological Exam Neurological exam: Present: alert, CN II-XII intact, oriented X3, no focal deficits. Absent: facial droop, speech deficit Internal Medicine: Result - Labs CBC & Chem 7: 03/26/17 05:27 03/26/17 05:27 Labs: Short CBC 03/26/17 Range/Units 05:27 WBC 20.6 H (4.3-11.1) K/mcL Hgb 9.7 L (11.5-15.4) g/dL Hct 29.8 L (35.3-44.9) % Plt Count 327 (140-400) K/mcL Neutrophils # 14.7 H (1.6-8.9) K/mcL BMP 03/26/17 05:27 Sodium 132 L Potassium 2.7 L Chloride 99 Carbon Dioxide 28 BUN 6 L Creatinine 0.51 L Glucose 160 H Calcium 8.3 L Liver Function 03/26/17 Range/Units 05:27 Total Bilirubin 0.2 (0.2-1.2) mg/dL AST 16 (5-34) Units/L ALT 9 (0-55) Units/L Alkaline Phosphatase 60 (38-126) Units/L Albumin 1.9 L (3.5-5.0) g/dL - VTE Documentation of Mechanical Device: Intermittent pneumatic compression device Consult Discharge Plan - Plan Referrals: Jose Holley Jr, MD [Primary Care Provider] - (web request sent on 03/24/17)
[2017-03-26] MEDS: *HR* LORazepam 2 MG/ML VIAL IVP PRN (16:27)
[2017-03-26] MEDS ORDERED: Clinimix E 5%-20% SOLUTION 2,000 ML with MVI, adult with vitamin K 10 ML IVC SCH (17:00)
[2017-03-26] MEDS: Latanoprost 2.5 ML BOTTLE RIGHT EYE SCH (21:51)
[2017-03-27] MEDS: Insulin LISPRO 300 UNITS/3 ML VIAL SQ SCH ×4 (00:24→17:48)
[2017-03-27] MEDS: cefTAZidime 2,000 MG in Water for inj. (sterile) 20 ML IVP SCH ×3 (02:13→17:38)
[2017-03-27] MEDS: *HR* HYDROmorphone (PF) 1 MG/ML SYRINGE IVP PRN ×4 (02:13→19:40)
[2017-03-27] MEDS: MetroNIDAZOLE 500 MG/100 ML 500 MG/100 ML BAG IVPB SCH ×3 (03:45→19:41)
[2017-03-27 04:13] LABS: Basophils # 0.1 K/mcL (0.0-0.2); Basophils % 0.4 %; Eosinophils # 0.5 K/mcL (0.0-0.6); Eosinophils % 2.5 %; Hematocrit 29.7 % (35.3-44.9); Hemoglobin 9.5 g/dL (11.5-15.4); Lymphocytes # 3.2 K/mcL (0.6-4.6); Lymphocytes % 17.2 %; Mean Corpuscular Hemoglobin 27.2 pg (28.0-33.3); Mean Corpuscular Volume 85.1 fL (83.0-100.0); Mean Platelet Volume 8.7 fL (9.4-12.4); Monocytes # 1.7 K/mcL (0.0-1.3); Monocytes % 9.1 %; Neutrophils # 12.5 K/mcL (1.6-8.9); Platelet Count 358 K/mcL (140-400); Red Blood Count 3.49 M/mcL (3.82-4.97); Segmented Neutrophils % 67.8 %
[2017-03-27 04:25] LABS: Magnesium 1.5 mg/dL (1.6-2.6); Phosphorous 1.3 mg/dL (2.3-4.7)
[2017-03-27 04:28] LABS: Alanine Aminotransferase 8 Units/L (0-55); Albumin/Globulin Ratio 0.6 (1.1-2.2); Alkaline Phosphatase 58 Units/L (38-126); Aspartate Amino Transferase 15 Units/L (5-34); BUN/Creatinine Ratio 15 (6-26); Bilirubin,Total 0.2 mg/dL (0.2-1.2); Blood Urea Nitrogen 7 mg/dL (7-20); Calcium 8.4 mg/dL (8.6-10.8); Carbon Dioxide 28 mEq/L (19-29); Chloride 97 mEq/L (98-109); Globulin 3.1 g/dL (2.4-3.5); Glucose 165 mg/dL (70-99); Osmolality,Calculated 274 (280-300); Potassium 2.8 mEq/L (3.5-4.5); Sodium 131 mEq/L (136-145); eGFR For African Americans > 60 (> 60); eGFR For Non-African Americans > 60 (> 60)
[2017-03-27 04:31] LABS: Albumin 1.9 g/dL (3.5-5.0)
[2017-03-27] MEDS: *HR* Heparin 5,000 UNIT/ML VIAL SQ SCH ×2 (05:56→17:49)
[2017-03-27] MEDS: 0.9 % Sodium Chloride 1,000 ML IVC SCH (07:21)
[2017-03-27] MEDS: Nicotine 21 MG PATCH.TD24 TD SCH (09:04)
[2017-03-27] MEDS: Pantoprazole 40 MG VIAL IVP SCH (09:14)
[2017-03-27] MEDS: Ondansetron 4 MG/2 ML VIAL IVP PRN (09:14)
--- NOTE | 2017-03-27 10:25 | General Surgery Progress Note ---
Date of Encounter: 03/27/17 Time of Encounter: 10:24 - Assessment and Plan (1) Small bowel obstruction Current Visit: Yes Status: Acute Patient is s/p a SBR and repair of a femoral hernia. The patient has had some improvement in her bowel function. Will place NG tube to gravity Larson drainage. Continue with IV fluids and IV nutrition. Slight decrease in the trend of her white count (20,000-19,000). We will continue to follow. Subjective Patient reports: no new complaints, other (Mild flatus. No BM) Objective Vital Signs - Last 8 Hours Temp Pulse Resp BP Pulse Ox 03/27/17 07:15 97.4 F L 93 16 135/73 96 03/27/17 03:41 97.6 F 83 16 129/72 93 Intake and Output 03/26/17 03/27/17 03/27/17 23:59 07:59 15:59 Intake Total 120 / 120 20 / 20 Output Total 800 / 800 150 / 150 500 / 500 Balance -680 / -680 -130 / -130 -500 / -500 Intake: IV Fluids 120 / 120 20 / 20 Tazicef 2,000 mg In Water for 20 20 / 20 inj. (sterile) 20 ML @ 600 mls/ hr IVP Q8H [facility] Rx#:[id number] Flagyl Premix 500 MG/100 ML 500 100 / 100 mg In 100 ml @ 100 mls/hr IVPB Q8H [facility] Rx#:[id number] Output: Catheter 800 / 800 150 / 150 Gastric Drainage 500 / 500 Left Nare 500 / 500 Other: Weight 53.7 kg Blood Glucose* 122 127 - General physical appearance well nourished, no distress - Abdomen Abdomen: Present: bowel sounds present (Scant BS), soft, non tender (Mild incisonal pain with palpation.) - Labs 03/27/17 03:41 03/27/17 03:41 Diabetes panel 03/27/17 Range/Units 03:41 Sodium 131 L (136-145) mEq/L Potassium 2.8 L (3.5-4.5) mEq/L Chloride 97 L (98-109) mEq/L Carbon Dioxide 28 (19-29) mEq/L BUN 7 (7-20) mg/dL Creatinine 0.46 L (0.57-1.11) mg/dL Glucose 165 H (70-99) mg/dL Calcium 8.4 L (8.6-10.8) mg/dL AST 15 (5-34) Units/L ALT 8 (0-55) Units/L Alkaline Phosphatase 58 (38-126) Units/L Albumin 1.9 L (3.5-5.0) g/dL Calcium panel 03/27/17 03/27/17 Range/Units 03:41 03:41 Calcium 8.4 L (8.6-10.8) mg/dL Phosphorus 1.3 L (2.3-4.7) mg/dL Albumin 1.9 L (3.5-5.0) g/dL Pituitary panel 03/27/17 Range/Units 03:41 Sodium 131 L (136-145) mEq/L Potassium 2.8 L (3.5-4.5) mEq/L Chloride 97 L (98-109) mEq/L Carbon Dioxide 28 (19-29) mEq/L BUN 7 (7-20) mg/dL Creatinine 0.46 L (0.57-1.11) mg/dL Glucose 165 H (70-99) mg/dL Calcium 8.4 L (8.6-10.8) mg/dL Adrenal panel 03/27/17 Range/Units 03:41 Sodium 131 L (136-145) mEq/L Potassium 2.8 L (3.5-4.5) mEq/L Chloride 97 L (98-109) mEq/L Carbon Dioxide 28 (19-29) mEq/L BUN 7 (7-20) mg/dL Creatinine 0.46 L (0.57-1.11) mg/dL Glucose 165 H (70-99) mg/dL Calcium 8.4 L (8.6-10.8) mg/dL Total Bilirubin 0.2 (0.2-1.2) mg/dL AST 15 (5-34) Units/L ALT 8 (0-55) Units/L Alkaline Phosphatase 58 (38-126) Units/L Albumin 1.9 L (3.5-5.0) g/dL - VTE Documentation of Mechanical Device: Intermittent pneumatic compression device Consult Discharge Plan - Plan Referrals: Jose Holley Jr, MD [Primary Care Provider] - (web request sent on 03/24/17)
[2017-03-27] MEDS: *HR* LORazepam 2 MG/ML VIAL IVP PRN ×2 (13:57→19:52)
--- NOTE | 2017-03-27 14:13 | Internal Med Progress Note ---
Date of Encounter: 03/27/17 Time of Encounter: 09:50 - Assessment and plan (1) Small bowel obstruction Current Visit: Yes Status: Acute Assessment and plan: Acute small bowel obstruction and incarcerated hernia seen on CT scan - status post exploratory laparoscopy with small bowel resection and repair of incarcerated hernia - postop day #3 Continue empiric IV Ceftazidime, IV Levaquin, IV Flagyl, IV fluids, IV Zofran as needed, IV Protonix, NPO, TPN IV Dilaudid as needed for pain, incentive spirometry CT head - no acute intracranial abnormality CT chest - masslike consolidation in left upper lobe with endobronchial filling defect with known lung cancer, probable satellite lesions present X-ray pelvis - no acute oseous findings, multiple gas-filled loops of small bowel Repeat CT abdomen - small bowel obstruction and incarcerated hernia WBC - 20.6 Cultures - no growth Gen. surgery - recommendations reviewed, continue NG tube, supportive care Cardiac telemetry, labs in a.m., monitor closely 03/25 - postop day #1. NG tube in place. Patient is doing well at this time. Complains of mild abdominal pain at surgical site. Surgical dressing intact and there is no bleeding. 11 - postop day #2. Mild pain at surgical site, dressing intact with no bleeding. General surgery following. NG tube in place. Awaiting return of bowel function. Dressing change today. No fever. Hemodynamically stable. Continue IV antibiotics. Leukocytosis persistent. - Replace electrolytes including potassium, magnesium and phosphorus. Labs in a.m. 11/12 - postop day #3. Awaiting bowel function returned. No new complaints. Continue IV antibiotics. Hemodynamically stable no fever. Electrolytes being replaced. Repeat labs in a.m. (2) Abnormal CT scan, liver Current Visit: Yes Status: Acute Assessment and plan: Small amount of portal gas per CT, no evidence of toxic megacolon, no submucosal gas in the small bowel Repeat CT scan revealed small bowel obstruction and incarcerated hernia Continue supportive care, IV pain medication Gen. surgery following - status post small bowel obstruction and repair of incarcerated femoral hernia Cardiac telemetry, labs in a.m. 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, T4N3M0, stage IIIB, additional nodules in the lower lobes - extending to mediastinum Currently on chemotherapy Oncology consult - appreciate input Follow-up with oncology as outpatient Stable mixed solid and cystic multiloculated lesion within the pelvis favored to be ovarian in origin and concerning for neoplasm (4) Anxiety Current Visit: Yes Status: Chronic Assessment and plan: Chronic anxiety, stable Continue IV Ativan PRN (5) COPD (chronic obstructive pulmonary disease) Current Visit: Yes Status: Chronic Assessment and plan: Probable COPD, stable - not in exacerbation Patient is not on home oxygen, not on any medications at home Continue DuoNeb breathing treatment PRN, O2 via nasal cannula Qualifiers: COPD type: unspecified COPD Qualified Code(s): J44.9 - Chronic obstructive pulmonary disease, unspecified (6) Tobacco abuse Current Visit: Yes Status: Chronic Assessment and plan: Patient currently smokes one pack of cigarettes daily, she has cut down from 3 packs daily about one year ago - smoked for more than 40 years Counseled about cessation, nicotine patch (7) DVT prophylaxis Current Visit: Yes Status: Acute Assessment and plan: Continue Heparin subcutaneous - Time Spent With Patient 25 - 35 minutes - Subjective Interval history: Examined this morning. Patient is awake and alert. At baseline mental status. Not in any distress. Complains of mild abdominal pain at surgical site. Complains of generalized weakness. Feels better. NG tube in place. Denies chest pain or shortness of breath. Hemodynamically stable. No fever. No other acute events or complaints. Patient underwent ex-lap with small bowel resection and repair of incarcerated right femoral hernia. Tolerated procedure well. Postop day #3. General surgery following. Awaiting return of bowel function. Currently on TPN. - Constitutional Vitals: Temp Pulse Resp BP Pulse Ox 97.5 F L 88 16 113/66 96 03/27/17 11:49 03/27/17 11:49 03/27/17 11:49 03/27/17 11:49 03/27/17 11:49 General appearance: Present: cooperative, A&O X 3, pleasant, no acute distress, answers questions appropriately - Head Head exam: Present: atraumatic - Eye Eye exam: Present: EOMI - ENT ENT exam: Present: mucous membranes dry Additional comments: NG tube in place - Respiratory Respiratory exam: Present: CTAB. Absent: accessory muscle use, chest wall tenderness, rales, rhonchi, wheezes, tachypnea - Cardiovascular Cardiovascular exam: Present: RRR, +S1, +S2 - GI/Abdominal GI/Abdominal exam: Present: diminished bowel sounds, soft, no peritoneal signs. Absent: distended, firm, guarding, tenderness Additional comments: Surgical dressing intact, no bleeding - Extremities Exam Extremities exam: Present: radial pulses palpable and symmetrical. Absent: calf tenderness, cyanotic, pedal edema - Neurological Exam Neurological exam: Present: alert, oriented X3, no focal deficits. Absent: facial droop, speech deficit Internal Medicine: Result - Labs CBC & Chem 7: 03/27/17 03:41 03/27/17 03:41 Labs: Short CBC 03/27/17 Range/Units 03:41 WBC 18.4 H (4.3-11.1) K/mcL Hgb 9.5 L (11.5-15.4) g/dL Hct 29.7 L (35.3-44.9) % Plt Count 358 (140-400) K/mcL Neutrophils # 12.5 H (1.6-8.9) K/mcL BMP 03/27/17 03:41 Sodium 131 L Potassium 2.8 L Chloride 97 L Carbon Dioxide 28 BUN 7 Creatinine 0.46 L Glucose 165 H Calcium 8.4 L Liver Function 03/27/17 Range/Units 03:41 Total Bilirubin 0.2 (0.2-1.2) mg/dL AST 15 (5-34) Units/L ALT 8 (0-55) Units/L Alkaline Phosphatase 58 (38-126) Units/L Albumin 1.9 L (3.5-5.0) g/dL - VTE Documentation of Mechanical Device: Intermittent pneumatic compression device Consult Discharge Plan - Plan Referrals: Jose Holley Jr, MD [Primary Care Provider] - (web request sent on 03/24/17)
[2017-03-27] MEDS ORDERED: Clinimix E 5%-20% SOLUTION 2,000 ML with MVI, adult with vitamin K 10 ML IVC SCH (17:00)
[2017-03-27] MEDS: Levofloxacin 750 MG/150 ML 750 MG/150 ML BAG IVPB SCH (17:50)
[2017-03-27] MEDS: Latanoprost 2.5 ML BOTTLE RIGHT EYE SCH (19:40)
[2017-03-28] MEDS: Insulin LISPRO 300 UNITS/3 ML VIAL SQ SCH ×5 (00:07→21:26)
[2017-03-28] MEDS: *HR* HYDROmorphone (PF) 1 MG/ML SYRINGE IVP PRN ×4 (00:07→21:06)
[2017-03-28] MEDS: cefTAZidime 2,000 MG in Water for inj. (sterile) 20 ML IVP SCH ×3 (02:14→17:13)
[2017-03-28] MEDS: MetroNIDAZOLE 500 MG/100 ML 500 MG/100 ML BAG IVPB SCH ×3 (03:24→18:11)
[2017-03-28 04:32] LABS: Basophils # 0.1 K/mcL (0.0-0.2); Basophils % 0.3 %; Eosinophils # 0.4 K/mcL (0.0-0.6); Eosinophils % 2.3 %; Hematocrit 28.2 % (35.3-44.9); Hemoglobin 9.2 g/dL (11.5-15.4); Immature Granulocytes % 3.5 % (0-4); Lymphocytes # 2.3 K/mcL (0.6-4.6); Lymphocytes % 12.2 %; Mean Corpuscular HGB Conc 32.6 g/dL (31.6-35.5); Mean Corpuscular Hemoglobin 27.6 pg (28.0-33.3); Mean Corpuscular Volume 84.7 fL (83.0-100.0); Mean Platelet Volume 8.8 fL (9.4-12.4); Monocytes # 1.6 K/mcL (0.0-1.3); Monocytes % 8.8 %; Neutrophils # 13.6 K/mcL (1.6-8.9); Platelet Count 352 K/mcL (140-400); Red Blood Count 3.33 M/mcL (3.82-4.97); Red Cell Distribution Width 14.9 % (11.5-14.5); Segmented Neutrophils % 72.9 %
[2017-03-28 04:46] LABS: BUN/Creatinine Ratio 19 (6-26); Blood Urea Nitrogen 8 mg/dL (7-20); Calcium 7.9 mg/dL (8.6-10.8); Carbon Dioxide 30 mEq/L (19-29); Chloride 96 mEq/L (98-109); Glucose 146 mg/dL (70-99); Osmolality,Calculated 275 (280-300); Sodium 132 mEq/L (136-145); eGFR For African Americans > 60 (> 60); eGFR For Non-African Americans > 60 (> 60)
[2017-03-28 04:53] LABS: Magnesium 1.3 mg/dL (1.6-2.6); Phosphorous 1.4 mg/dL (2.3-4.7)
[2017-03-28] MEDS: *HR* Heparin 5,000 UNIT/ML VIAL SQ SCH ×2 (05:32→17:19)
[2017-03-28] MEDS: Nicotine 21 MG PATCH.TD24 TD SCH (08:02)
[2017-03-28] MEDS: Pantoprazole 40 MG VIAL IVP SCH (09:37)
[2017-03-28] MEDS: *HR* LORazepam 2 MG/ML VIAL IVP PRN ×2 (10:13→21:07)
--- NOTE | 2017-03-28 10:39 | General Surgery Progress Note ---
<GeronimoCammy Saxena - Last Filed: 03/28/17 10:36> Date of Encounter: 03/28/17 Time of Encounter: 10:15 - Assessment and Plan (1) Incarcerated femoral hernia Current Visit: Yes Status: Acute Date of procedure: 03/24/17 Pre-op diagnosis: Incarcerated right femoral hernia with bowel obstruction Post-op diagnosis: same Procedure: #1 exploratory laparotomy with small bowel resection. #2 repair of incarcerated right femoral hernia POD #4 as above. Incisions are WNL, hypoactive BS no nausea. Minimal output in NG to gravity. Will d/c NG and add limited CLD. Recommend out of bed to chair for all meals D/c perez when appropriate per primary medicine standpoint Continue pt/ot for mobilization and d/c planning ambulate in halls TID with assistance continue supportive care and discomfort management. Continue G.I. and DVT prophylaxis Continue TPN Replace electrolytes PRN (2) Small bowel obstruction Current Visit: Yes Status: Acute 05/22/2016:Noted small amount of portal gas per CT. There are also some gas bubbles in the mucosa of the stomach; no evidence of toxic megacolon; no evidence of submucosal gas in the small bowel. WBC is downtrending 03/23/2017: 03/23/2017. The patient seen and evaluated on morning rounds. She has no abdominal pain. She does have hypokalemia. We will start her on clear liquid diet as well as replace the potassium 40 mEq IV area overall her condition is improving. The differential diagnosis for air in the portal venous system his mucosal necrosis. I see no evidence of segmental bowel necrosis. This may be a localized process that is improving. We will continue to follow along closely. 03/24/2017: Repeat CT of abdomen and pelvis with oral and IV contrast ordered. She is vomiting after drinking contrast, endorses abdominal discomfort, and denies flatus/BM. CT of abdomen and pelvis demonstrate new right incarcerated inguinal hernia and worsening small bowel obstruction. Taken to OR. See assessment and plan above (3) Abnormal CT scan, liver Current Visit: Yes Status: Acute 03/22/2017:Noted small amount of portal gas per CT. There are also some gas bubbles in the mucosa of the stomach; no evidence of toxic megacolon; no evidence of submucosal gas in the small bowel. WBC is downtrending 03/23/2017: 03/23/2017. The patient seen and evaluated on morning rounds. She has no abdominal pain. She does have hypokalemia. We will start her on clear liquid diet as well as replace the potassium 40 mEq IV area overall her condition is improving. The differential diagnosis for air in the portal venous system his mucosal necrosis. I see no evidence of segmental bowel necrosis. This may be a localized process that is improving. We will continue to follow along closely. 03/24/2017: Repeat CT of abdomen and pelvis with oral and IV contrast ordered. She is vomiting after drinking contrast, endorses abdominal discomfort, and denies flatus/BM. CT of abdomen and pelvis demonstrate new right incarcerated inguinal hernia and worsening small bowel obstruction. See assessment and plan above (4) GILSON (acute kidney injury) Current Visit: Yes Status: Acute see above Subjective Patient reports: no new complaints, feels better, still having pain, pain is less, voiding w/o difficulty, flatus, no bowel movement, afebrile Objective Vital Signs - Last 8 Hours Temp Pulse Resp BP Pulse Ox 03/28/17 10:04 96 03/28/17 06:58 98.1 F 86 16 125/75 96 03/28/17 04:05 98.0 F 92 16 133/75 98 Intake and Output 03/27/17 03/28/17 03/28/17 23:59 07:59 15:59 Intake Total 100 / 100 20 / 20 Output Total 900 / 900 0 / 0 Balance -800 / -800 20 / 20 0 / 0 Intake: IV Fluids 100 / 100 20 / 20 Tazicef 2,000 mg In Water for 0 / 0 20 / 20 inj. (sterile) 20 ML @ 600 mls/ hr IVP Q8H ROSSI Rx#:[id number] Flagyl Premix 500 MG/100 ML 500 100 / 100 mg In 100 ml @ 100 mls/hr IVPB Q8H ROSSI Rx#:[id number] Oral 0 / 0 Output: Urine 0 / 0 Catheter 900 / 900 Other: Weight 58.3 kg Blood Glucose* 128 143 Patient Weight 03/28/17 23:59 Weight 58.3 kg - General physical appearance no distress, chronically ill - Eyes normal ocular movement - ENT atraumatic, normocephalic - Neck Neck exam: trachea midline, no venous distension - Respiratory normal expansion, clear to auscultation, other (Decreased resp effort) - Cardiovascular Cardiovascular exam: Present: RRR, murmurs - Abdomen Abdomen: Present: bowel sounds present, soft, tender (Expected postoperative) Hernia: none - Integumentary no rash - Neurologic normal sensation - Musculoskeletal normal posture - Psychiatric oriented to time, oriented to person, oriented to place, speech is normal, memory intact - Labs 03/28/17 04:20 03/28/17 04:20 Diabetes panel 03/28/17 Range/Units 04:20 Sodium 132 L (136-145) mEq/L Potassium 3.0 L (3.5-4.5) mEq/L Chloride 96 L (98-109) mEq/L Carbon Dioxide 30 H (19-29) mEq/L BUN 8 (7-20) mg/dL Creatinine 0.42 L (0.57-1.11) mg/dL Glucose 146 H (70-99) mg/dL Calcium 7.9 L (8.6-10.8) mg/dL Calcium panel 03/28/17 03/28/17 Range/Units 04:20 04:20 Calcium 7.9 L (8.6-10.8) mg/dL Phosphorus 1.4 L (2.3-4.7) mg/dL Pituitary panel 03/28/17 Range/Units 04:20 Sodium 132 L (136-145) mEq/L Potassium 3.0 L (3.5-4.5) mEq/L Chloride 96 L (98-109) mEq/L Carbon Dioxide 30 H (19-29) mEq/L BUN 8 (7-20) mg/dL Creatinine 0.42 L (0.57-1.11) mg/dL Glucose 146 H (70-99) mg/dL Calcium 7.9 L (8.6-10.8) mg/dL Adrenal panel 03/28/17 Range/Units 04:20 Sodium 132 L (136-145) mEq/L Potassium 3.0 L (3.5-4.5) mEq/L Chloride 96 L (98-109) mEq/L Carbon Dioxide 30 H (19-29) mEq/L BUN 8 (7-20) mg/dL Creatinine 0.42 L (0.57-1.11) mg/dL Glucose 146 H (70-99) mg/dL Calcium 7.9 L (8.6-10.8) mg/dL - VTE Documentation of Mechanical Device: Intermittent pneumatic compression device Consult Discharge Plan - Plan Referrals: Jose Holley Jr, MD [Primary Care Provider] - (web request sent on 03/24/17) <ShonaEnrrique T - Last Filed: 03/28/17 16:00> Date of Encounter: 03/28/17 - Assessment and Plan (1) Abnormal CT scan, liver Current Visit: Yes Status: Acute Objective Vital Signs - Last 8 Hours Temp Pulse Resp BP Pulse Ox 03/28/17 11:04 98.5 F 91 16 126/75 97 03/28/17 10:04 96 Intake and Output 03/27/17 03/28/17 03/28/17 23:59 07:59 15:59 Intake Total 100 / 100 120 / 120 160 / 160 Output Total 900 / 900 0 / 0 Balance -800 / -800 120 / 120 160 / 160 Intake: IV Fluids 100 / 100 120 / 120 100 / 100 Tazicef 2,000 mg In Water for 0 / 0 20 / 20 inj. (sterile) 20 ML @ 600 mls/ hr IVP Q8H ROSSI Rx#:[id number] Flagyl Premix 500 MG/100 ML 500 100 / 100 100 / 100 mg In 100 ml @ 100 mls/hr IVPB Q8H ROSSI Rx#:[id number] Potassium Chloride 10 mEq/100mL 100 / 100 10 meq In 100 ml @ 100 mls/hr IVPB Q1H ROSSI Rx#:[id number] Oral 0 / 0 60 / 60 Output: Urine 0 / 0 Catheter 900 / 900 Other: Meal Lunch Percent of Meal Consumed 0% Weight 58.3 kg Blood Glucose* 128 143 125 Patient Weight 03/28/17 23:59 Weight 58.3 kg - Labs 03/28/17 04:20 03/28/17 04:20 Diabetes panel 03/28/17 Range/Units 04:20 Sodium 132 L (136-145) mEq/L Potassium 3.0 L (3.5-4.5) mEq/L Chloride 96 L (98-109) mEq/L Carbon Dioxide 30 H (19-29) mEq/L BUN 8 (7-20) mg/dL Creatinine 0.42 L (0.57-1.11) mg/dL Glucose 146 H (70-99) mg/dL Calcium 7.9 L (8.6-10.8) mg/dL Calcium panel 03/28/17 03/28/17 Range/Units 04:20 04:20 Calcium 7.9 L (8.6-10.8) mg/dL Phosphorus 1.4 L (2.3-4.7) mg/dL Pituitary panel 03/28/17 Range/Units 04:20 Sodium 132 L (136-145) mEq/L Potassium 3.0 L (3.5-4.5) mEq/L Chloride 96 L (98-109) mEq/L Carbon Dioxide 30 H (19-29) mEq/L BUN 8 (7-20) mg/dL Creatinine 0.42 L (0.57-1.11) mg/dL Glucose 146 H (70-99) mg/dL Calcium 7.9 L (8.6-10.8) mg/dL Adrenal panel 03/28/17 Range/Units 04:20 Sodium 132 L (136-145) mEq/L Potassium 3.0 L (3.5-4.5) mEq/L Chloride 96 L (98-109) mEq/L Carbon Dioxide 30 H (19-29) mEq/L BUN 8 (7-20) mg/dL Creatinine 0.42 L (0.57-1.11) mg/dL Glucose 146 H (70-99) mg/dL Calcium 7.9 L (8.6-10.8) mg/dL - Attending Attestation I have personally performed a face to face evaluation on this patient. I have reviewed and agree with the care plan. History and Exam by me shows: The patient is seen and evaluated in the morning rounds. The nasogastric tube drainage is to a Perez bag gravity drainage and has minimal NG drainage over the last 8 hours. I think that her and she can be removed at this point she can be started on liquids. She is progressing well. Enrrique Nagel MD FACS
--- NOTE | 2017-03-28 13:48 | Internal Med Progress Note ---
Date of Encounter: 03/28/17 Time of Encounter: 09:30 - Assessment and plan (1) Small bowel obstruction Current Visit: Yes Status: Acute Assessment and plan: Acute small bowel obstruction and incarcerated hernia seen on CT scan - status post exploratory laparoscopy with small bowel resection and repair of incarcerated hernia - postop day #4 Continue empiric IV Ceftazidime, IV Levaquin, IV Flagyl, IV fluids, IV Zofran as needed, IV Protonix, TPN IV Dilaudid as needed for pain, incentive spirometry CT head - no acute intracranial abnormality CT chest - masslike consolidation in left upper lobe with endobronchial filling defect with known lung cancer, probable satellite lesions present Repeat CT abdomen - small bowel obstruction and incarcerated hernia WBC - 18.6 Cultures - no growth Gen. surgery - recommendations reviewed, supportive care Cardiac telemetry, labs in a.m., monitor closely 11/11 - postop day #2. Mild pain at surgical site, dressing intact with no bleeding. General surgery following. NG tube in place. Awaiting return of bowel function. Dressing change today. No fever. Hemodynamically stable. Continue IV antibiotics. Leukocytosis persistent. - Replace electrolytes including potassium, magnesium and phosphorus. Labs in a.m. 11/12 - postop day #3. Awaiting bowel function returned. No new complaints. Continue IV antibiotics. Hemodynamically stable no fever. Electrolytes being replaced. Repeat labs in a.m. /13 - postop day #4. Minimal output and NG tube. Hemodynamically stable. No fever. Stop IV Flagyl and IV Levaquin after today. Can remove NG tube. Clear liquid diet today. Ambulate out of bed today. Anticipate discharge soon. Replace electrolytes as needed. (2) Abnormal CT scan, liver Current Visit: Yes Status: Acute Assessment and plan: Small amount of portal gas per CT, no evidence of toxic megacolon, no submucosal gas in the small bowel Repeat CT scan revealed small bowel obstruction and incarcerated hernia Continue supportive care, IV pain medication Gen. surgery following - status post small bowel obstruction and repair of incarcerated femoral hernia, postoperative day #4 Cardiac telemetry, labs in a.m. 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, T4N3M0, stage IIIB, additional nodules in the lower lobes - extending to mediastinum Stable mixed solid and cystic multiloculated lesion within the pelvis favored to be ovarian in origin and concerning for neoplasm Currently on chemotherapy Oncology consult - appreciate input Follow-up with oncology as outpatient (4) Anxiety Current Visit: Yes Status: Chronic Assessment and plan: Chronic anxiety, stable Continue IV Ativan PRN (5) COPD (chronic obstructive pulmonary disease) Current Visit: Yes Status: Chronic Assessment and plan: Probable COPD, stable - not in exacerbation Patient is not on home oxygen, not on any medications at home Continue DuoNeb breathing treatment PRN, O2 via nasal cannula Qualifiers: COPD type: unspecified COPD Qualified Code(s): J44.9 - Chronic obstructive pulmonary disease, unspecified (6) Tobacco abuse Current Visit: Yes Status: Chronic Assessment and plan: Patient currently smokes one pack of cigarettes daily, she has cut down from 3 packs daily about one year ago - smoked for more than 40 years Counseled about cessation, nicotine patch (7) DVT prophylaxis Current Visit: Yes Status: Acute Assessment and plan: Continue Heparin subcutaneous - Time Spent With Patient 25 - 35 minutes - Subjective Interval history: Examined this morning. Patient is awake and alert. At baseline mental status. Not in any distress. Complains of mild abdominal pain at surgical site. Complains of generalized weakness. Feels better. NG tube with minimal output. Denies chest pain or shortness of breath. Hemodynamically stable. No fever. No other acute events or complaints. No bowel movement, but states she has flatus. Patient underwent ex-lap with small bowel resection and repair of incarcerated right femoral hernia. Tolerated procedure well. Postop day #4. General surgery following. Currently on TPN. Start clear liquid diet today. Ambulate out of bed. Anticipate discharge soon. - Constitutional Vitals: Temp Pulse Resp BP Pulse Ox 98.5 F 91 16 126/75 97 03/28/17 11:04 03/28/17 11:04 03/28/17 11:04 03/28/17 11:04 03/28/17 11:04 General appearance: Present: cooperative, A&O X 3, pleasant, no acute distress, answers questions appropriately Exam: Chronically ill-appearing, generalized weakness - Head Head exam: Present: atraumatic - Eye Eye exam: Present: EOMI - ENT ENT exam: Present: mucous membranes dry Additional comments: NG tube in place - Respiratory Respiratory exam: Present: CTAB. Absent: accessory muscle use, chest wall tenderness, rales, respiratory distress, rhonchi, wheezes, tachypnea - Cardiovascular Cardiovascular exam: Present: RRR, +S1, +S2 - GI/Abdominal GI/Abdominal exam: Present: diminished bowel sounds, soft, no peritoneal signs. Absent: distended, firm, guarding, tenderness Additional comments: Surgical dressing intact, no bleeding - Extremities Exam Extremities exam: Present: radial pulses palpable and symmetrical. Absent: calf tenderness, cyanotic, pedal edema - Neurological Exam Neurological exam: Present: alert, CN II-XII intact, oriented X3, no focal deficits. Absent: facial droop, speech deficit Internal Medicine: Result - Labs CBC & Chem 7: 03/28/17 04:20 03/28/17 04:20 Labs: Short CBC 03/28/17 Range/Units 04:20 WBC 18.6 H (4.3-11.1) K/mcL Hgb 9.2 L (11.5-15.4) g/dL Hct 28.2 L (35.3-44.9) % Plt Count 352 (140-400) K/mcL Neutrophils # 13.6 H (1.6-8.9) K/mcL BMP 03/28/17 04:20 Sodium 132 L Potassium 3.0 L Chloride 96 L Carbon Dioxide 30 H BUN 8 Creatinine 0.42 L Glucose 146 H Calcium 7.9 L - VTE Documentation of Mechanical Device: Intermittent pneumatic compression device Consult Discharge Plan - Plan Referrals: Jose Holley Jr, MD [Primary Care Provider] - (web request sent on 03/24/17)
[2017-03-28] MEDS: 0.9 % Sodium Chloride 1,000 ML IVC SCH (16:39)
[2017-03-28] MEDS ORDERED: Clinimix E 5%-20% SOLUTION 2,000 ML with MVI, adult with vitamin K 10 ML, Magnesium S... IVC SCH (17:00)
[2017-03-28] MEDS: *HR* Promethazine 25 MG/ML VIAL IVP PRN (17:17)
[2017-03-28] MEDS ORDERED: Levofloxacin 750 MG/150 ML 750 MG/150 ML BAG IVPB ONE (18:00)
[2017-03-28] MEDS: Latanoprost 2.5 ML BOTTLE RIGHT EYE SCH (21:07)
[2017-03-29] MEDS: cefTAZidime 2,000 MG in Water for inj. (sterile) 20 ML IVP SCH ×3 (01:44→17:14)
[2017-03-29] MEDS: *HR* HYDROmorphone (PF) 1 MG/ML SYRINGE IVP PRN ×2 (02:16→06:47)
[2017-03-29] MEDS: *HR* Promethazine 25 MG/ML VIAL IVP PRN ×2 (02:16→21:25)
[2017-03-29 05:39] LABS: Basophils % 0.2 %; Eosinophils # 0.4 K/mcL (0.0-0.6); Eosinophils % 2.1 %; Hemoglobin 8.8 g/dL (11.5-15.4); Immature Granulocytes % 3.8 % (0-4); Lymphocytes # 2.1 K/mcL (0.6-4.6); Lymphocytes % 11.9 %; Mean Corpuscular HGB Conc 32.6 g/dL (31.6-35.5); Mean Corpuscular Hemoglobin 27.5 pg (28.0-33.3); Mean Corpuscular Volume 84.4 fL (83.0-100.0); Mean Platelet Volume 8.9 fL (9.4-12.4); Monocytes # 1.5 K/mcL (0.0-1.3); Monocytes % 8.4 %; Neutrophils # 12.8 K/mcL (1.6-8.9); Platelet Count 338 K/mcL (140-400); Red Cell Distribution Width 14.9 % (11.5-14.5); Segmented Neutrophils % 73.6 %
[2017-03-29 05:56] LABS: BUN/Creatinine Ratio 18 (6-26); Blood Urea Nitrogen 7 mg/dL (7-20); Calcium 7.9 mg/dL (8.6-10.8); Carbon Dioxide 31 mEq/L (19-29); Chloride 97 mEq/L (98-109); Glucose 138 mg/dL (70-99); Magnesium 1.5 mg/dL (1.6-2.6); Osmolality,Calculated 272 (280-300); Phosphorous 1.6 mg/dL (2.3-4.7); Potassium 3.1 mEq/L (3.5-4.5); Sodium 131 mEq/L (136-145); eGFR For African Americans > 60 (> 60); eGFR For Non-African Americans > 60 (> 60)
[2017-03-29] MEDS: *HR* Heparin 5,000 UNIT/ML VIAL SQ SCH ×2 (06:47→17:14)
[2017-03-29] MEDS: 0.9 % Sodium Chloride 1,000 ML IVC SCH (08:16)
[2017-03-29] MEDS: Insulin LISPRO 300 UNITS/3 ML VIAL SQ SCH ×4 (08:19→21:39)
[2017-03-29] MEDS: Pantoprazole 40 MG VIAL IVP SCH (08:19)
[2017-03-29] MEDS: Nicotine 21 MG PATCH.TD24 TD SCH (08:20)
[2017-03-29] MEDS: *HR* LORazepam 2 MG/ML VIAL IVP PRN ×3 (08:42→21:42)
--- NOTE | 2017-03-29 08:46 | General Surgery Progress Note ---
<Cammy Melton Hemanth - Last Filed: 03/29/17 08:52> Date of Encounter: 03/29/17 Time of Encounter: 08:46 - Assessment and Plan (1) Incarcerated femoral hernia Current Visit: Yes Status: Acute Date of procedure: 03/24/17 Pre-op diagnosis: Incarcerated right femoral hernia with bowel obstruction Post-op diagnosis: same Procedure: #1 exploratory laparotomy with small bowel resection. #2 repair of incarcerated right femoral hernia POD #5 as above. Incisions are WNL, normoactive BS; no nausea. NG was d/c'd ; tolerating CLD. She does appear fluid overloaded (BLLL crackles, +JVD, and anasarca noted) Plan: Recommend out of bed to chair for all meals Continue pt/ot for mobilization and d/c planning ambulate in halls TID with assistance continue supportive care and discomfort management. Continue G.I. and DVT prophylaxis Recommend diuresis per primary medicine as they manage her total fluid status; D /c perez when appropriate per primary medicine standpointWean TPN. Increased diet to full liquids, advance as tolerated. Replace electrolytes PRN (replaced K, phos, mag, and albumin today as pt appears third spaced). Total fluid management per primary team (2) Anasarca Current Visit: Yes Status: Acute See fluid management in A/P for incarcerated hernia above (3) Small bowel obstruction Current Visit: Yes Status: Resolved 05/22/2016:Noted small amount of portal gas per CT. There are also some gas bubbles in the mucosa of the stomach; no evidence of toxic megacolon; no evidence of submucosal gas in the small bowel. WBC is downtrending 03/23/2017: 03/23/2017. The patient seen and evaluated on morning rounds. She has no abdominal pain. She does have hypokalemia. We will start her on clear liquid diet as well as replace the potassium 40 mEq IV area overall her condition is improving. The differential diagnosis for air in the portal venous system his mucosal necrosis. I see no evidence of segmental bowel necrosis. This may be a localized process that is improving. We will continue to follow along closely. 03/24/2017: Repeat CT of abdomen and pelvis with oral and IV contrast ordered. She is vomiting after drinking contrast, endorses abdominal discomfort, and denies flatus/BM. CT of abdomen and pelvis demonstrate new right incarcerated inguinal hernia and worsening small bowel obstruction. Taken to OR. See assessment and plan above (4) Abnormal CT scan, liver Current Visit: Yes Status: Acute 03/22/2017:Noted small amount of portal gas per CT. There are also some gas bubbles in the mucosa of the stomach; no evidence of toxic megacolon; no evidence of submucosal gas in the small bowel. WBC is downtrending 03/23/2017: 03/23/2017. The patient seen and evaluated on morning rounds. She has no abdominal pain. She does have hypokalemia. We will start her on clear liquid diet as well as replace the potassium 40 mEq IV area overall her condition is improving. The differential diagnosis for air in the portal venous system his mucosal necrosis. I see no evidence of segmental bowel necrosis. This may be a localized process that is improving. We will continue to follow along closely. 03/24/2017: Repeat CT of abdomen and pelvis with oral and IV contrast ordered. She is vomiting after drinking contrast, endorses abdominal discomfort, and denies flatus/BM. CT of abdomen and pelvis demonstrate new right incarcerated inguinal hernia and worsening small bowel obstruction. See assessment and plan above (5) GILSON (acute kidney injury) Current Visit: Yes Status: Acute see above Subjective Patient reports: feels better, still having pain, pain is less, tolerating liquids well, voiding w/o difficulty (per perez), flatus, bowel movement, shortness of breath, afebrile Objective Vital Signs - Last 8 Hours Temp Pulse Resp BP Pulse Ox 03/29/17 07:25 98.0 F 99 17 135/69 94 03/29/17 02:49 98.3 F 98 16 147/81 98 Intake and Output 03/28/17 03/29/17 03/29/17 23:59 07:59 15:59 Intake Total 270 / 270 270 / 270 1000 / 1000 Output Total 950 / 950 650 / 650 Balance -680 / -680 -380 / -380 1000 / 1000 Intake: IV Fluids 270 / 270 270 / 270 1000 / 1000 0.9 % Sodium Chloride 1,000 ML 1000 / 1000 @ 55 mls/hr IVC .[id number] [facility] Rx #:[id number] Tazicef 2,000 mg In Water for 20 / 20 20 / 20 inj. (sterile) 20 ML @ 600 mls/ hr IVP Q8H [facility] Rx#:[id number] Intralipid 20% 250 ML @ 21 mls/ 250 / 250 hr IVPB DAILY@1700 [facility] Rx#: [id number] Levaquin Premix 750mg/150 mL 150 / 150 750 mg In 150 ml @ 100 mls/hr IVPB ONCE ONE Rx#:[id number] Flagyl Premix 500 MG/100 ML 500 100 / 100 mg In 100 ml @ 100 mls/hr IVPB Q8H [facility] Rx#:[id number] Oral 0 / 0 Output: Urine 0 / 0 Catheter 950 / 950 650 / 650 Other: Stool Size Moderate Moderate Stool Consistency loose soft liquid Stool Color Brown # Bowel Movements 1 1 Weight 61.8 kg Blood Glucose* 119 141 Patient Weight 03/29/17 23:59 Weight 61.8 kg - General physical appearance no distress, moderate pain - ENT atraumatic, normocephalic - Neck Neck exam: trachea midline, other (+JVD) - Respiratory normal expansion, normal respiratory effort crackles: bilateral (in the bases) - Cardiovascular Cardiovascular exam: Present: RRR, murmurs - Abdomen Abdomen: Present: bowel sounds present, soft, tender (Expected postoperative) Hernia: none - Incision Incision: Present: clean and dry, intact - Integumentary no growths - Neurologic normal coordination, normal sensation - Musculoskeletal normal posture - Psychiatric oriented to time, oriented to person, oriented to place, speech is normal, memory intact - Labs 03/29/17 05:20 03/29/17 05:20 Diabetes panel 03/29/17 Range/Units 05:20 Sodium 131 L (136-145) mEq/L Potassium 3.1 L (3.5-4.5) mEq/L Chloride 97 L (98-109) mEq/L Carbon Dioxide 31 H (19-29) mEq/L BUN 7 (7-20) mg/dL Creatinine 0.39 L (0.57-1.11) mg/dL Glucose 138 H (70-99) mg/dL Calcium 7.9 L (8.6-10.8) mg/dL Calcium panel 03/29/17 Range/Units 05:20 Calcium 7.9 L (8.6-10.8) mg/dL Phosphorus 1.6 L (2.3-4.7) mg/dL Pituitary panel 03/29/17 Range/Units 05:20 Sodium 131 L (136-145) mEq/L Potassium 3.1 L (3.5-4.5) mEq/L Chloride 97 L (98-109) mEq/L Carbon Dioxide 31 H (19-29) mEq/L BUN 7 (7-20) mg/dL Creatinine 0.39 L (0.57-1.11) mg/dL Glucose 138 H (70-99) mg/dL Calcium 7.9 L (8.6-10.8) mg/dL Adrenal panel 03/29/17 Range/Units 05:20 Sodium 131 L (136-145) mEq/L Potassium 3.1 L (3.5-4.5) mEq/L Chloride 97 L (98-109) mEq/L Carbon Dioxide 31 H (19-29) mEq/L BUN 7 (7-20) mg/dL Creatinine 0.39 L (0.57-1.11) mg/dL Glucose 138 H (70-99) mg/dL Calcium 7.9 L (8.6-10.8) mg/dL - VTE Documentation of Mechanical Device: Intermittent pneumatic compression device Consult Discharge Plan - Plan Referrals: Jose Holley Jr, MD [Primary Care Provider] - (web request sent on 03/24/17) <Enrrique Nagel - Last Filed: 03/30/17 08:34> Date of Encounter: 03/30/17 - Assessment and Plan (1) Abnormal CT scan, liver Current Visit: Yes Status: Acute Objective Vital Signs - Last 8 Hours Temp Pulse Resp BP Pulse Ox 03/30/17 07:48 98.3 F 95 22 163/73 97 03/30/17 03:46 98.4 F 85 16 123/72 97 Intake and Output 03/29/17 03/30/17 03/30/17 23:59 07:59 15:59 Intake Total 120 / 120 / 20 Output Total 1300 / 1300 500 / 500 Balance -1180 / -1180 -480 / -480 Intake: IV Fluids / 20 Tazicef 2,000 mg In Water for 20 / 20 inj. (sterile) 20 ML @ 600 mls/ hr IVP Q8H [facility] Rx#:[id number] Oral 120 / 120 Output: Catheter 1300 / 1300 500 / 500 Other: Meal Dinner Percent of Meal Consumed 50% Weight 64.4 kg Blood Glucose* 108 125 Patient Weight 03/30/17 23:59 Weight 64.4 kg - Labs 03/30/17 05:12 03/30/17 05:12 Diabetes panel 03/30/17 Range/Units 05:12 Sodium 134 L (136-145) mEq/L Potassium 3.6 (3.5-4.5) mEq/L Chloride 100 (98-109) mEq/L Carbon Dioxide 30 H (19-29) mEq/L BUN 10 (7-20) mg/dL Creatinine 0.43 L (0.57-1.11) mg/dL Glucose 103 H (70-99) mg/dL Calcium 8.1 L (8.6-10.8) mg/dL Calcium panel 03/30/17 Range/Units 05:12 Calcium 8.1 L (8.6-10.8) mg/dL Phosphorus 2.3 (2.3-4.7) mg/dL Pituitary panel 03/30/17 Range/Units 05:12 Sodium 134 L (136-145) mEq/L Potassium 3.6 (3.5-4.5) mEq/L Chloride 100 (98-109) mEq/L Carbon Dioxide 30 H (19-29) mEq/L BUN 10 (7-20) mg/dL Creatinine 0.43 L (0.57-1.11) mg/dL Glucose 103 H (70-99) mg/dL Calcium 8.1 L (8.6-10.8) mg/dL Adrenal panel 03/30/17 Range/Units 05:12 Sodium 134 L (136-145) mEq/L Potassium 3.6 (3.5-4.5) mEq/L Chloride 100 (98-109) mEq/L Carbon Dioxide 30 H (19-29) mEq/L BUN 10 (7-20) mg/dL Creatinine 0.43 L (0.57-1.11) mg/dL Glucose 103 H (70-99) mg/dL Calcium 8.1 L (8.6-10.8) mg/dL - Attending Attestation I have personally performed a face to face evaluation on this patient. I have reviewed and agree with the care plan. History and Exam by me shows: Improved diet tolerance Enrrique Nagel MD FACS
[2017-03-29] MEDS ORDERED: Potassium Chloride 40 MEQ, Lidocaine 1% 2 ML in D5% in Water 500 ML IVPB ONE (08:56)
[2017-03-29] MEDS ORDERED: Albumin 25% 25gram/100mL 25 GM/100 ML IV.SOLN IVPB ONE (08:57)
[2017-03-29] MEDS: Ketorolac 15 MG/ML VIAL IVP SCH ×2 (13:49→17:14)
--- NOTE | 2017-03-29 14:54 | Internal Med Progress Note ---
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, T4N3M0, stage IIIB, additional nodules in the lower lobes - extending to mediastinum Stable mixed solid and cystic multiloculated lesion within the pelvis favored to be ovarian in origin and concerning for neoplasm Currently on chemotherapy Follow-up with oncology as outpatient (4) S/P exploratory laparotomy Current Visit: Yes Status: Acute (5) Small bowel obstruction Current Visit: Yes Status: Resolved Assessment and plan: status post exploratory laparotomy with small bowel resection and repair of incarcerated hernia - postop day #5 Continue empiric IV Ceftazidime PO and IV Narcotics as needed for pain, incentive spirometry Advance diet as tolerated (6) Incarcerated femoral hernia Current Visit: Yes Status: Acute (7) Anasarca Current Visit: Yes Status: Acute Assessment and plan: volume overload due to IV fluids + PCM d/c IVF started on Lasix (8) Protein calorie malnutrition Current Visit: Yes Status: Acute Assessment and plan: Due to surgery and Lung ca since she started tolerating PO intake ok, will wean her off the TPN in AM also encourage more Portion supplements Qualifiers: Protein-calorie malnutrition severity: moderate Qualified Code(s): E44.0 - Moderate protein-calorie malnutrition (9) DVT prophylaxis Current Visit: Yes Status: Acute Assessment and plan: Continue Heparin subcutaneous (10) Electrolyte abnormality Current Visit: Yes Status: Acute Assessment and plan: due to surgery / PCM / Nutrition def / Volume overload cont close monitoring and cont replacing on PRN basis - Subjective Interval history: Ms. Bond is a 71 year old female with a PMH of arthritis, GERD, COPD, migraines, anxiety and depression, also had left lung squamous cell carcinoma and is currently undergoing chemotherapy presented to ER abdominal pain, nausea vomiting and diarrhea. She happened to have Incarcerate Rt femoral hernia with SBO for which she did go for exp laparotomy with small bowel resection and repair of incarcerated Rt femoral hernia on 03/24/2017. Post op pt has been doing ok so far. She was started on TPN initially, her NG tube d/c on 03/28/17 and started on clear liquids. Today she is tolerating full liquid diet ok. She denied any CP, does c/o SOB and POWELL. - Constitutional Vitals: Temp Pulse Resp BP Pulse Ox 98.9 F 100 17 117/65 98 03/29/17 11:36 03/29/17 11:36 03/29/17 11:36 03/29/17 11:36 03/29/17 11:36 General appearance: Present: cooperative, A&O X 3, no acute distress, answers questions appropriately - Head Head exam: Present: atraumatic, normal inspection - Neck Neck exam general surgery: Present: supple - Respiratory Respiratory exam: Present: decreased breath sounds, rales (moderate), wheezes ( mild). Absent: respiratory distress, rhonchi - Cardiovascular Cardiovascular exam: Present: RRR, +S1, +S2. Absent: systolic murmur, tachycardia - GI/Abdominal GI/Abdominal exam: Present: normal bowel sounds, soft, tenderness. Absent: rebound, rigid - Extremities Exam Extremities exam: Present: pedal edema (2+). Absent: calf tenderness, tenderness - Back Exam Back exam: Absent: CVA tenderness (L), CVA tenderness (R) - Neurological Exam Neurological exam: Present: alert, oriented X3 - Psychiatric Psychiatric exam: Present: normal affect, normal mood Internal Medicine: Result - Labs CBC & Chem 7: 03/29/17 05:20 03/29/17 05:20 Labs: Short CBC 03/29/17 Range/Units 05:20 WBC 17.4 H (4.3-11.1) K/mcL Hgb 8.8 L (11.5-15.4) g/dL Hct 27.0 L (35.3-44.9) % Plt Count 338 (140-400) K/mcL Neutrophils # 12.8 H (1.6-8.9) K/mcL BMP 03/29/17 05:20 Sodium 131 L Potassium 3.1 L Chloride 97 L Carbon Dioxide 31 H BUN 7 Creatinine 0.39 L Glucose 138 H Calcium 7.9 L - VTE Documentation of Mechanical Device: Intermittent pneumatic compression device Consult Discharge Plan - Plan Referrals: Jose Holley Jr, MD [Primary Care Provider] - (web request sent on 03/24/17)
[2017-03-29] MEDS: Furosemide 20 MG/2 ML VIAL IVP SCH (15:25)
[2017-03-29] MEDS ORDERED: Clinimix E 5%-20% SOLUTION 2,000 ML with MVI, adult with vitamin K 10 ML IVC SCH (17:00)
[2017-03-29] MEDS: *HR* OxyCODONE/APAP 10/325 TABLET PO PRN (21:28)
[2017-03-29] MEDS: Latanoprost 2.5 ML BOTTLE RIGHT EYE SCH (21:29)
[2017-03-30] MEDS: Ketorolac 15 MG/ML VIAL IVP SCH ×4 (01:07→17:13)
[2017-03-30] MEDS: cefTAZidime 2,000 MG in Water for inj. (sterile) 20 ML IVP SCH ×3 (01:08→17:13)
[2017-03-30 05:20] LABS: Basophils % 0.2 %; Eosinophils # 0.4 K/mcL (0.0-0.6); Eosinophils % 3.6 %; Hematocrit 24.6 % (35.3-44.9); Hemoglobin 8.1 g/dL (11.5-15.4); Immature Granulocytes % 2.3 % (0-4); Immature Platelets 2.7 % (1.1-6.1); Lymphocytes # 2.3 K/mcL (0.6-4.6); Mean Corpuscular HGB Conc 32.9 g/dL (31.6-35.5); Mean Corpuscular Volume 85.1 fL (83.0-100.0); Mean Platelet Volume 8.7 fL (9.4-12.4); Monocytes # 1.2 K/mcL (0.0-1.3); Monocytes % 9.8 %; Platelet Count 350 K/mcL (140-400); Red Blood Count 2.89 M/mcL (3.82-4.97); Segmented Neutrophils % 65.1 %
[2017-03-30] MEDS: *HR* Promethazine 25 MG/ML VIAL IVP PRN (05:20)
[2017-03-30] MEDS: *HR* Heparin 5,000 UNIT/ML VIAL SQ SCH ×2 (05:20→17:13)
[2017-03-30 05:31] LABS: BUN/Creatinine Ratio 23 (6-26); Blood Urea Nitrogen 10 mg/dL (7-20); Calcium 8.1 mg/dL (8.6-10.8); Carbon Dioxide 30 mEq/L (19-29); Chloride 100 mEq/L (98-109); Glucose 103 mg/dL (70-99); Magnesium 1.6 mg/dL (1.6-2.6); Osmolality,Calculated 277 (280-300); Phosphorous 2.3 mg/dL (2.3-4.7); Potassium 3.6 mEq/L (3.5-4.5); Sodium 134 mEq/L (136-145); eGFR For African Americans > 60 (> 60); eGFR For Non-African Americans > 60 (> 60)
[2017-03-30] MEDS: Furosemide 20 MG/2 ML VIAL IVP SCH ×2 (09:20→17:13)
[2017-03-30] MEDS: Nicotine 21 MG PATCH.TD24 TD SCH (09:21)
[2017-03-30] MEDS: Insulin LISPRO 300 UNITS/3 ML VIAL SQ SCH ×4 (09:22→21:30)
--- NOTE | 2017-03-30 09:48 | General Surgery Progress Note ---
<GeronimoCammy Saxena - Last Filed: 03/30/17 11:39> Date of Encounter: 03/30/17 Time of Encounter: 10:00 - Assessment and Plan (1) Incarcerated femoral hernia Current Visit: Yes Status: Acute Date of procedure: 03/24/17 Pre-op diagnosis: Incarcerated right femoral hernia with bowel obstruction Post-op diagnosis: same Procedure: #1 exploratory laparotomy with small bowel resection. #2 repair of incarcerated right femoral hernia POD #6 as above. Incisions are WNL, normoactive BS; no nausea. NG was d/c'd ; tolerating CLD. Remains appearing fluid overloaded (BLLL crackles, +JVD, and anasarca noted), but is being diureses per primary team. Plan: Recommend out of bed to chair for all meals Continue pt/ot for mobilization and d/c planning ambulate in halls TID with assistance continue supportive care and discomfort management. Continue G.I. and DVT prophylaxis Diuresis per primary medicine as they manage her total fluid status; Wean TPN. and advance as tolerated. Total fluid management per primary team May leave incisions POORNIMA. Surgery will sign off at this time. Thank you for allowing us to participate in Mrs. Bond's care. (2) Anasarca Current Visit: Yes Status: Acute See fluid management in A/P for incarcerated hernia above (3) Small bowel obstruction Current Visit: Yes Status: Resolved 05/22/2016:Noted small amount of portal gas per CT. There are also some gas bubbles in the mucosa of the stomach; no evidence of toxic megacolon; no evidence of submucosal gas in the small bowel. WBC is downtrending 03/23/2017: 03/23/2017. The patient seen and evaluated on morning rounds. She has no abdominal pain. She does have hypokalemia. We will start her on clear liquid diet as well as replace the potassium 40 mEq IV area overall her condition is improving. The differential diagnosis for air in the portal venous system his mucosal necrosis. I see no evidence of segmental bowel necrosis. This may be a localized process that is improving. We will continue to follow along closely. 03/24/2017: Repeat CT of abdomen and pelvis with oral and IV contrast ordered. She is vomiting after drinking contrast, endorses abdominal discomfort, and denies flatus/BM. CT of abdomen and pelvis demonstrate new right incarcerated inguinal hernia and worsening small bowel obstruction. Taken to OR. See assessment and plan above (4) Abnormal CT scan, liver Current Visit: Yes Status: Acute 03/22/2017:Noted small amount of portal gas per CT. There are also some gas bubbles in the mucosa of the stomach; no evidence of toxic megacolon; no evidence of submucosal gas in the small bowel. WBC is downtrending 03/23/2017: 03/23/2017. The patient seen and evaluated on morning rounds. She has no abdominal pain. She does have hypokalemia. We will start her on clear liquid diet as well as replace the potassium 40 mEq IV area overall her condition is improving. The differential diagnosis for air in the portal venous system his mucosal necrosis. I see no evidence of segmental bowel necrosis. This may be a localized process that is improving. We will continue to follow along closely. 03/24/2017: Repeat CT of abdomen and pelvis with oral and IV contrast ordered. She is vomiting after drinking contrast, endorses abdominal discomfort, and denies flatus/BM. CT of abdomen and pelvis demonstrate new right incarcerated inguinal hernia and worsening small bowel obstruction. See assessment and plan above (5) GILSON (acute kidney injury) Current Visit: Yes Status: Acute see above Subjective Patient reports: no new complaints, feels better, still having pain, pain is less, tolerating liquids well, voiding w/o difficulty, flatus, bowel movement, afebrile Objective Vital Signs - Last 8 Hours Temp Pulse Resp BP Pulse Ox 03/30/17 07:48 98.3 F 95 22 163/73 97 03/30/17 03:46 98.4 F 85 16 123/72 97 Intake and Output 03/29/17 03/30/17 03/30/17 23:59 07:59 15:59 Intake Total 120 / 120 20 / 20 Output Total 1300 / 1300 500 / 500 Balance -1180 / -1180 -480 / -480 Intake: IV Fluids 20 / 20 Tazicef 2,000 mg In Water for 20 20 inj. (sterile) 20 ML @ 600 mls/ hr IVP Q8H [facility] Rx#:[id number] Oral 120 / 120 Output: Catheter 1300 / 1300 500 / 500 Other: Meal Dinner Percent of Meal Consumed 50% Weight 64.4 kg Blood Glucose* 108 125 Patient Weight 11/15/17 23:59 Weight 64.4 kg - General physical appearance no distress - Eyes normal ocular movement - ENT atraumatic, normocephalic - Neck Neck exam: trachea midline, no venous distension - Respiratory other (Decreased bilateral bases. Crackles again noted.) - Cardiovascular Cardiovascular exam: Present: RRR - Abdomen Abdomen: Present: bowel sounds present, soft, tender (Expected postoperative) - Incision Incision: Present: clean and dry, intact - Integumentary no rash, no growths, no abnormal pigmentation - Neurologic normal coordination, normal sensation - Musculoskeletal normal posture - Psychiatric oriented to time, oriented to person, oriented to place, speech is normal, memory intact - Labs 03/30/17 05:12 03/30/17 05:12 Diabetes panel 03/30/17 Range/Units 05:12 Sodium 134 L (136-145) mEq/L Potassium 3.6 (3.5-4.5) mEq/L Chloride 100 (98-109) mEq/L Carbon Dioxide 30 H (19-29) mEq/L BUN 10 (7-20) mg/dL Creatinine 0.43 L (0.57-1.11) mg/dL Glucose 103 H (70-99) mg/dL Calcium 8.1 L (8.6-10.8) mg/dL Calcium panel 03/30/17 Range/Units 05:12 Calcium 8.1 L (8.6-10.8) mg/dL Phosphorus 2.3 (2.3-4.7) mg/dL Pituitary panel 03/30/17 Range/Units 05:12 Sodium 134 L (136-145) mEq/L Potassium 3.6 (3.5-4.5) mEq/L Chloride 100 (98-109) mEq/L Carbon Dioxide 30 H (19-29) mEq/L BUN 10 (7-20) mg/dL Creatinine 0.43 L (0.57-1.11) mg/dL Glucose 103 H (70-99) mg/dL Calcium 8.1 L (8.6-10.8) mg/dL Adrenal panel 03/30/17 Range/Units 05:12 Sodium 134 L (136-145) mEq/L Potassium 3.6 (3.5-4.5) mEq/L Chloride 100 (98-109) mEq/L Carbon Dioxide 30 H (19-29) mEq/L BUN 10 (7-20) mg/dL Creatinine 0.43 L (0.57-1.11) mg/dL Glucose 103 H (70-99) mg/dL Calcium 8.1 L (8.6-10.8) mg/dL - VTE Documentation of Mechanical Device: Intermittent pneumatic compression device Consult Discharge Plan - Plan Instructions: Bowel Resection (DC), Open Herniorrhaphy (DC) Additional Instructions: General Surgical Discharge Instructions 1. No pushing, pulling, or lifting greater than 15 lbs for 6 weeks. 2. You may shower beginning today, but no tub baths, soaking, or swimming for 2 weeks. 3. You may resume driving when you are off narcotics and are safe to react in a car. 4. Take your home chronic narcotics as directed. Do not take more narcotics then directed and do not share your narcotics with any other person. Do not drink alcohol while on narcotics. 5. Take stool softeners (Colace) or a water based laxative (Miralax) while taking narcotics. You may hold for loose stools. 6. Report any fevers greater than 100.5F, increase abdominal discomfort, drainage that looks like pus, increased redness or pain at the surgical site, or any vomiting. 7. Report any pain in the calves, shortness of breath, or rapid heartbeat. 8. Follow-up in the office as directed. 9. If you were prescribed antibiotics, do not stop them without talking to your provider. Referrals: Jose Holley Jr, MD [Primary Care Provider] - (web request sent on 03/24/17) Cammy Melton CNP [Advanced Practice Nurse] - 04/12/17 3:00 pm <Enrrique Nagel - Last Filed: 03/31/17 07:31> Date of Encounter: 03/30/17 - Assessment and Plan (1) Abnormal CT scan, liver Current Visit: Yes Status: Acute Objective Vital Signs - Last 8 Hours Temp Pulse Resp BP Pulse Ox 03/31/17 06:36 98.4 F 82 18 128/74 95 03/31/17 04:36 98 F 91 16 132/75 94 03/31/17 00:37 98.1 F 87 16 125/67 95 Intake and Output 11/03/30/17 03/31/17 15:59 23:59 07:59 Intake Total 120 / 120 140 / 140 Output Total 1350 / 1350 700 / 700 Balance -1230 / -1230 140 / 140 -700 / -700 Intake: IV Fluids Tazicef 2,000 mg In Water for inj. (sterile) 20 ML @ 600 mls/ hr IVP Q8H [facility] Rx#:[id number] Oral 100 / 100 120 / 120 Output: Catheter 1350 / 1350 700 / 700 Other: Meal Breakfast Dinner Percent of Meal Consumed 25% 5% Stool Size Small Stool Consistency liquid Stool Color Black # Bowel Movements 1 Weight 64.6 kg Blood Glucose* 120 Patient Weight 03/31/17 23:59 Weight 64.6 kg - Labs 03/30/17 05:12 03/30/17 05:12 - Attending Attestation I have personally performed a face to face evaluation on this patient. I have reviewed and agree with the care plan. History and Exam by me shows: The patient is seen and evaluated on morning rounds. She is pain-free and having normal bowel movements. At this point we will sign off. I will be glad to see her as an outpatient in follow-up. Enrrique Nagel MD FACS
[2017-03-30] MEDS: *HR* LORazepam 2 MG/ML VIAL IVP PRN ×3 (10:51→21:27)
--- NOTE | 2017-03-30 14:46 | Internal Med Progress Note ---
Date of Encounter: 03/30/17 Time of Encounter: 14:43 - Assessment and plan (1) Acute respiratory failure with hypoxia Current Visit: Yes Status: Acute Assessment and plan: Due to volume overload, deconditioning and lung Ca Mild COPD exacerbation too Improving No need of steroids cont Duoneb May need home O2 eval Cont on diuretics strict I & O (2) COPD exacerbation Current Visit: Yes Status: Acute Assessment and plan: Mild COPD exacerbation no need of steroids cont duoneb and O2 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, T4N3M0, stage IIIB, additional nodules in the lower lobes - extending to mediastinum Stable mixed solid and cystic multiloculated lesion within the pelvis favored to be ovarian in origin and concerning for neoplasm Currently on chemotherapy Follow-up with oncology as outpatient (4) S/P exploratory laparotomy Current Visit: Yes Status: Acute (5) Small bowel obstruction Current Visit: Yes Status: Resolved Assessment and plan: status post exploratory laparotomy with small bowel resection and repair of incarcerated hernia - postop day #6 Continue empiric IV Ceftazidime # 6/10 PO and IV Narcotics as needed for pain, incentive spirometry Advance diet as tolerated (6) Incarcerated femoral hernia Current Visit: Yes Status: Acute (7) Anasarca Current Visit: Yes Status: Acute Assessment and plan: volume overload due to IV fluids + PCM Improving slowly cont on Lasix (8) Protein calorie malnutrition Current Visit: Yes Status: Acute Assessment and plan: Due to surgery and Lung ca since she started tolerating PO intake ok, will wean her off the TPN today also encourage more Protein supplements Qualifiers: Protein-calorie malnutrition severity: moderate Qualified Code(s): E44.0 - Moderate protein-calorie malnutrition (9) DVT prophylaxis Current Visit: Yes Status: Acute Assessment and plan: Continue Heparin subcutaneous (10) Electrolyte abnormality Current Visit: Yes Status: Acute Assessment and plan: due to surgery / PCM / Nutrition def / Volume overload cont close monitoring and cont replacing on PRN basis - Subjective Interval history: Ms. Bond is a 71 year old female with a PMH of arthritis, GERD, COPD, migraines, anxiety and depression, also had left lung squamous cell carcinoma and is currently undergoing chemotherapy presented to ER abdominal pain, nausea vomiting and diarrhea. She happened to have Incarcerate Rt femoral hernia with SBO for which she did go for exp laparotomy with small bowel resection and repair of incarcerated Rt femoral hernia on 03/24/2017. Post op pt has been doing ok so far. She was started on TPN initially, her NG tube d/c on 03/28/17 and started on clear liquids. She is tolerating soft diet ok today. She denied any CP. Her SOB and POWELL also little better today - Constitutional Vitals: Temp Pulse Resp BP Pulse Ox 98.7 F 90 26 137/82 97 03/30/17 11:15 03/30/17 11:15 03/30/17 11:15 03/30/17 11:15 03/30/17 11:15 General appearance: Present: cooperative, A&O X 3, no acute distress, answers questions appropriately - Head Head exam: Present: atraumatic, normal inspection - Respiratory Respiratory exam: Present: decreased breath sounds, rales (mild), wheezes (mild) . Absent: respiratory distress, rhonchi - Cardiovascular Cardiovascular exam: Present: RRR, +S1, +S2. Absent: systolic murmur - GI/Abdominal GI/Abdominal exam: Present: normal bowel sounds, soft, tenderness (around incision area). Absent: rebound, rigid Additional comments: clean surgical incisions noticed lower abdomen and Rt inguinal region - Extremities Exam Extremities exam: Present: pedal edema. Absent: calf tenderness, tenderness - Incison Incision: Present: clean and dry - Neurological Exam Neurological exam: Present: alert, oriented X3 - Psychiatric Psychiatric exam: Present: normal affect, normal mood Internal Medicine: Result - Labs CBC & Chem 7: 03/30/17 05:12 03/30/17 05:12 Labs: Short CBC 03/30/17 Range/Units 05:12 WBC 12.2 H (4.3-11.1) K/mcL Hgb 8.1 L (11.5-15.4) g/dL Hct 24.6 L (35.3-44.9) % Plt Count 350 (140-400) K/mcL Neutrophils # 8.0 (1.6-8.9) K/mcL BMP 03/30/17 05:12 Sodium 134 L Potassium 3.6 Chloride 100 Carbon Dioxide 30 H BUN 10 Creatinine 0.43 L Glucose 103 H Calcium 8.1 L - VTE Documentation of Mechanical Device: Intermittent pneumatic compression device Consult Discharge Plan - Plan Instructions: Bowel Resection (DC), Open Herniorrhaphy (DC) Additional Instructions: General Surgical Discharge Instructions 1. No pushing, pulling, or lifting greater than 15 lbs for 6 weeks. 2. You may shower beginning today, but no tub baths, soaking, or swimming for 2 weeks. 3. You may resume driving when you are off narcotics and are safe to react in a car. 4. Take your home chronic narcotics as directed. Do not take more narcotics then directed and do not share your narcotics with any other person. Do not drink alcohol while on narcotics. 5. Take stool softeners (Colace) or a water based laxative (Miralax) while taking narcotics. You may hold for loose stools. 6. Report any fevers greater than 100.5F, increase abdominal discomfort, drainage that looks like pus, increased redness or pain at the surgical site, or any vomiting. 7. Report any pain in the calves, shortness of breath, or rapid heartbeat. 8. Follow-up in the office as directed. 9. If you were prescribed antibiotics, do not stop them without talking to your provider. Referrals: Jose Holley Jr, MD [Primary Care Provider] - (web request sent on 03/24/17) Cammy Melton CNP [Advanced Practice Nurse] - 04/12/17 3:00 pm
[2017-03-30] MEDS ORDERED: Magnesium Sulfate 1 GM in D5% in Water 100 ML IVPB ONE (14:50)
[2017-03-30] MEDS: *HR* OxyCODONE/APAP 10/325 TABLET PO PRN ×2 (15:01→21:28)
[2017-03-30] MEDS: Ondansetron 4 MG/2 ML VIAL IVP PRN (21:27)
[2017-03-30] MEDS: Latanoprost 2.5 ML BOTTLE RIGHT EYE SCH (21:38)
[2017-03-31] MEDS: cefTAZidime 2,000 MG in Water for inj. (sterile) 20 ML IVP SCH ×3 (04:05→17:12)
[2017-03-31] MEDS: *HR* OxyCODONE/APAP 10/325 TABLET PO PRN ×3 (04:06→20:11)
[2017-03-31] MEDS: Ketorolac 15 MG/ML VIAL IVP SCH ×3 (04:06→14:02)
[2017-03-31] MEDS: *HR* Heparin 5,000 UNIT/ML VIAL SQ SCH ×2 (06:05→17:12)
[2017-03-31] MEDS: Ondansetron 4 MG/2 ML VIAL IVP PRN (06:44)
[2017-03-31] MEDS: Insulin LISPRO 300 UNITS/3 ML VIAL SQ SCH ×3 (10:00→20:14)
[2017-03-31] MEDS: Nicotine 21 MG PATCH.TD24 TD SCH (10:07)
[2017-03-31] MEDS: Furosemide 20 MG/2 ML VIAL IVP SCH ×2 (10:07→17:12)
[2017-03-31 11:01] LABS: Basophils % 0.3 %; Eosinophils # 0.4 K/mcL (0.0-0.6); Eosinophils % 3.2 %; Hematocrit 25.6 % (35.3-44.9); Immature Granulocytes % 1.3 % (0-4); Lymphocytes # 1.8 K/mcL (0.6-4.6); Lymphocytes % 14.1 %; Mean Corpuscular HGB Conc 31.3 g/dL (31.6-35.5); Mean Corpuscular Volume 86.5 fL (83.0-100.0); Mean Platelet Volume 9.3 fL (9.4-12.4); Monocytes % 7.7 %; Neutrophils # 9.6 K/mcL (1.6-8.9); Platelet Count 326 K/mcL (140-400); Red Blood Count 2.96 M/mcL (3.82-4.97); Red Cell Distribution Width 15.5 % (11.5-14.5); Segmented Neutrophils % 73.4 %
[2017-03-31 11:16] LABS: BUN/Creatinine Ratio 20 (6-26); Blood Urea Nitrogen 9 mg/dL (7-20); Calcium 8.4 mg/dL (8.6-10.8); Carbon Dioxide 31 mEq/L (19-29); Chloride 98 mEq/L (98-109); Glucose 94 mg/dL (70-99); Magnesium 1.4 mg/dL (1.6-2.6); Osmolality,Calculated 278 (280-300); Potassium 3.9 mEq/L (3.5-4.5); Sodium 135 mEq/L (136-145); eGFR For African Americans > 60 (> 60); eGFR For Non-African Americans > 60 (> 60)
--- NOTE | 2017-03-31 15:44 | Internal Med Progress Note ---
Date of Encounter: 03/31/17 Time of Encounter: 12:00 - Assessment and plan (1) Acute respiratory failure with hypoxia Current Visit: Yes Status: Acute Assessment and plan: Due to volume overload, deconditioning and lung Ca Mild COPD exacerbation too Improving No need of steroids cont Duoneb May need home O2 eval Cont on diuretics strict I & O May need to go to ECF for short term PT / OT for her physical deconditioning SW working on it Possible d/c to ECF in AM (2) COPD exacerbation Current Visit: Yes Status: Acute Assessment and plan: Mild COPD exacerbation no need of steroids cont duoneb and O2 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, T4N3M0, stage IIIB, additional nodules in the lower lobes - extending to mediastinum Stable mixed solid and cystic mult loculated lesion within the pelvis favored to be ovarian in origin and concerning for neoplasm Currently on chemotherapy Follow-up with oncology as outpatient (4) S/P exploratory laparotomy Current Visit: Yes Status: Acute (5) Small bowel obstruction Current Visit: Yes Status: Resolved Assessment and plan: status post exploratory laparotomy with small bowel resection and repair of incarcerated hernia - postop day #6 Switched abx to Omnicef BID # 7/10 PO and IV Narcotics as needed for pain, incentive spirometry Advance diet as tolerated (6) Incarcerated femoral hernia Current Visit: Yes Status: Acute (7) Anasarca Current Visit: Yes Status: Acute Assessment and plan: volume overload due to IV fluids + PCM Improving slowly cont on Lasix (8) Protein calorie malnutrition Current Visit: Yes Status: Acute Assessment and plan: Due to surgery and Lung ca Off the TPN started tolerating PO intake well also encourage more Protein supplements Qualifiers: Protein-calorie malnutrition severity: moderate Qualified Code(s): E44.0 - Moderate protein-calorie malnutrition (9) DVT prophylaxis Current Visit: Yes Status: Acute Assessment and plan: Continue Heparin subcutaneous (10) Electrolyte abnormality Current Visit: Yes Status: Acute Assessment and plan: due to surgery / PCM / Nutrition def / Volume overload cont close monitoring and cont replacing on PRN basis - Subjective Interval history: Ms. Bond is a 71 year old female with a PMH of arthritis, GERD, COPD, migraines, anxiety and depression, also had left lung squamous cell carcinoma and is currently undergoing chemotherapy presented to ER abdominal pain, nausea vomiting and diarrhea. She happened to have Incarcerate Rt femoral hernia with SBO for which she did go for exp laparotomy with small bowel resection and repair of incarcerated Rt femoral hernia on 03/24/2017. Post op pt has been doing ok so far. She was started on TPN initially, her NG tube d/c on 03/28/17 and started on clear liquids. She is tolerating soft diet ok today. She denied any CP. Her SOB and POWELL also little better today - Constitutional Vitals: Temp Pulse Resp BP Pulse Ox 98.2 F 88 18 137/83 95 03/31/17 11:32 03/31/17 11:32 03/31/17 11:32 03/31/17 11:32 03/31/17 11:32 General appearance: Present: cooperative, A&O X 3, no acute distress, answers questions appropriately - Head Head exam: Present: atraumatic, normal inspection - Respiratory Respiratory exam: Present: wheezes. Absent: decreased breath sounds, rales, respiratory distress, rhonchi - Cardiovascular Cardiovascular exam: Present: +S1, +S2 - GI/Abdominal GI/Abdominal exam: Present: normal bowel sounds, soft, tenderness (mild discomfort). Absent: rebound, rigid - Extremities Exam Extremities exam: Present: pedal edema. Absent: calf tenderness, tenderness - Incison Incision: Present: clean and dry - Back Exam Back exam: Absent: CVA tenderness (L), CVA tenderness (R) - Psychiatric Psychiatric exam: Present: normal affect, normal mood Internal Medicine: Result - Labs CBC & Chem 7: 03/31/17 10:20 03/31/17 10:20 Labs: Short CBC 03/31/17 Range/Units 10:20 WBC 13.0 H (4.3-11.1) K/mcL Hgb 8.0 L (11.5-15.4) g/dL Hct 25.6 L (35.3-44.9) % Plt Count 326 (140-400) K/mcL Neutrophils # 9.6 H (1.6-8.9) K/mcL BMP 03/31/17 10:20 Sodium 135 L Potassium 3.9 Chloride 98 Carbon Dioxide 31 H BUN 9 Creatinine 0.44 L Glucose 94 Calcium 8.4 L - VTE Documentation of Mechanical Device: Intermittent pneumatic compression device Consult Discharge Plan - Plan Instructions: Bowel Resection (DC), Open Herniorrhaphy (DC) Additional Instructions: General Surgical Discharge Instructions 1. No pushing, pulling, or lifting greater than 15 lbs for 6 weeks. 2. You may shower beginning today, but no tub baths, soaking, or swimming for 2 weeks. 3. You may resume driving when you are off narcotics and are safe to react in a car. 4. Take your home chronic narcotics as directed. Do not take more narcotics then directed and do not share your narcotics with any other person. Do not drink alcohol while on narcotics. 5. Take stool softeners (Colace) or a water based laxative (Miralax) while taking narcotics. You may hold for loose stools. 6. Report any fevers greater than 100.5F, increase abdominal discomfort, drainage that looks like pus, increased redness or pain at the surgical site, or any vomiting. 7. Report any pain in the calves, shortness of breath, or rapid heartbeat. 8. Follow-up in the office as directed. 9. If you were prescribed antibiotics, do not stop them without talking to your provider. Referrals: Cammy Melton CNP [Advanced Practice Nurse] - 04/12/17 3:00 pm
[2017-03-31] MEDS: *HR* Promethazine 25 MG/ML VIAL IVP PRN (20:07)
[2017-03-31] MEDS: *HR* LORazepam 2 MG/ML VIAL IVP PRN (20:08)
[2017-03-31] MEDS: Latanoprost 2.5 ML BOTTLE RIGHT EYE SCH (20:14)
[2017-04-01] MEDS: cefTAZidime 2,000 MG in Water for inj. (sterile) 20 ML IVP SCH ×2 (01:41→08:53)
[2017-04-01] MEDS: *HR* OxyCODONE/APAP 10/325 TABLET PO PRN ×2 (01:43→08:43)
[2017-04-01] MEDS: *HR* Promethazine 25 MG/ML VIAL IVP PRN ×2 (01:44→08:44)
[2017-04-01] MEDS: *HR* Heparin 5,000 UNIT/ML VIAL SQ SCH (05:28)
[2017-04-01] MEDS: Insulin LISPRO 300 UNITS/3 ML VIAL SQ SCH ×3 (08:39→11:10)
[2017-04-01] MEDS: Nicotine 21 MG PATCH.TD24 TD SCH (08:44)
[2017-04-01] MEDS: Furosemide 20 MG/2 ML VIAL IVP SCH (08:44)
[2017-04-01 11:07] VITALS: BP 133/70
--- NOTE | 2017-04-01 11:13 | Discharge Summary ---
Date of Encounter: 04/01/17 Time of Encounter: 11:07 - Discharge Diagnosis (1) S/P exploratory laparotomy Priority: Secondary Status: Acute (2) Incarcerated femoral hernia Priority: Primary Status: Acute (3) Small bowel obstruction Priority: Primary Status: Resolved (4) Acute respiratory failure with hypoxia Priority: Primary Status: Acute (5) COPD exacerbation Priority: Primary Status: Acute (6) Squamous cell carcinoma of left lung Priority: Secondary Status: Acute (7) Anasarca Priority: Secondary Status: Acute (8) Protein calorie malnutrition Priority: Secondary Status: Acute Qualifiers: Protein-calorie malnutrition severity: moderate Qualified Code(s): E44.0 - Moderate protein-calorie malnutrition (9) DVT prophylaxis Priority: Secondary Status: Acute (10) Electrolyte abnormality Priority: Secondary Status: Acute - Discharge Medications Prescriptions: Cefdinir [Omnicef] 300 mg PO BID #4 capsule Furosemide [Lasix] 20 mg PO BID #30 tablet LORazepam [Ativan] 0.5 mg PO BID PRN #15 tablet PRN Reason: Anxiety OxyCODONE Immed Rel [Roxicodone 5 MG] 5 mg PO Q6H PRN #20 tablet PRN Reason: Pain Home Medications: Acetaminophen [Tylenol] 500 mg PO Q6HR PRN 09/03/15 [History] Aspirin 325 mg PO DAILY 09/03/15 [History] Latanoprost [Xalatan] 1 drop RIGHT EYE HS 09/03/15 [History] Loperamide [Imodium] 2 mg PO Q4HR PRN #90 capsule 10/28/16 [Rx] Ondansetron [Zofran] 8 mg PO Q8HR PRN #90 tablet 10/28/16 [Rx] Dexamethasone [Decadron] 4 mg PO BID #36 tab 03/03/17 [Rx] Prochlorperazine Maleate [Compazine] 10 mg PO Q8HR PRN #90 tablet 03/03/17 [Rx] Cefdinir [Omnicef] 300 mg PO BID #4 capsule 04/01/17 [Rx] Furosemide [Lasix] 20 mg PO BID #30 tablet 04/01/17 [Rx] LORazepam [Ativan] 0.5 mg PO BID PRN #15 tablet 04/01/17 [Rx] OxyCODONE Immed Rel [Roxicodone 5 MG] 5 mg PO Q6H PRN #20 tablet 04/01/17 [Rx] Allergies/Adverse Reactions: 3 Allergy/AdvReac Type Severity Reaction Status Date / Time Penicillins Allergy Hives Verified 03/16/17 17:20 Sulfa (Sulfonamide Allergy Hives Verified 03/16/17 17:20 Antibiotics) eggs Allergy See Uncoded 03/16/17 17:20 Comments dairy products AdvReac Flatulence Uncoded 03/16/17 17:20 Date of admission: 03/21/17 20:43 Primary care physician: Jose Holley Jr, MD Consults: 03/25/17 10:23 Consult to Invasive Line Access Team [CONS] Routine Reason for Consult: Picc Line Insertion Line Type: PICC Time Notified: 10:23 Call Completed: Yes 03/25/17 10:24 consult to photonics engineer [Consult to Nutrition] [CONS] Routine Comment: Total fluid rate 100ml/hour (MIV + TPN) Consulting Provider: NUTRITION Reason for Dietary Consult: TPN Start and Manage 03/25/17 11:09 Consult to Occupational Therapy [CONS] Routine Comment: Evaluate, develop and implement POC Reason for Consult: evaluate and treat Consult to Physical Therapy [CONS] Routine Comment: Evaluate, develop and implement POC Reason for Consult: evaluate and treat 03/28/17 07:26 Consult to Farm Equipment Operator [CONS] Routine Reason for SW Consult: needs ecf - Patient Status Disposition: Transfer SNF Condition: Good Overall status at discharge: patient is back to baseline - Discharge Instructions Instructions: Bowel Resection (DC), Open Herniorrhaphy (DC) Follow Up With: Cammy Melton WINDOWS SOFTWARE ENGINEER [Advanced Practice Nurse] - 04/12/17 3:00 pm Additional Instructions: General Surgical Discharge Instructions 1. No pushing, pulling, or lifting greater than 15 lbs for 6 weeks. 2. You may shower beginning today, but no tub baths, soaking, or swimming for 2 weeks. 3. You may resume driving when you are off narcotics and are safe to react in a car. 4. Take your home chronic narcotics as directed. Do not take more narcotics then directed and do not share your narcotics with any other person. Do not drink alcohol while on narcotics. 5. Take stool softeners (Colace) or a water based laxative (Miralax) while taking narcotics. You may hold for loose stools. 6. Report any fevers greater than 100.5F, increase abdominal discomfort, drainage that looks like pus, increased redness or pain at the surgical site, or any vomiting. 7. Report any pain in the calves, shortness of breath, or rapid heartbeat. 8. Follow-up in the office as directed. 9. If you were prescribed antibiotics, do not stop them without talking to your provider. - Diet and Activity Activity: as per physical therapy, increase activity as tolerated Diet: low salt diet Hospital course: Ms. Bond is a 71 year old female with a PMH of arthritis, GERD, COPD, migraines, anxiety and depression, also had left lung squamous cell carcinoma and is currently undergoing chemotherapy presented to ER abdominal pain, nausea vomiting and diarrhea. She happened to have Incarcerate Rt femoral hernia with SBO for which she did go for exp laparotomy with small bowel resection and repair of incarcerated Rt femoral hernia on 03/24/2017. Post op pt has been doing well. She was started on TPN initially, her NG tube d/c on 03/28/17 and started on clear liquid diet and advanced as she tolerated. Now she is tolerating cardiac diet well. She did have acute hypoxic resp failure and COPD exacerbation initially which improved now. She is breathing cofortably on RA. Regarding her SBO, Incarcerated femoral hernia with s/o exp laparotomy, surgery initiated on empirical abx Ceftzidime, will switch to PO abx Omnicef for another 2 days. She also happened to have diffuse anasrca due to fluid over load with IV fluids. So started on IV Lasix and her leg edema started improving. She was evaluated by PT / OT who recommend ECF transfer for short term PT / OT. So will d/c her to ECF in stable condition today. - Time Spent with Patient Total time spent providing and/or coordinating discharge services: Greater than 30 minutes (spend 35 minutes on this pt's discharge summary due to her complex medical problem and prolonged length of hospital stay) - Constitutional Vitals: Temp Pulse Resp BP Pulse Ox 98.8 F 99 22 127/75 94 04/01/17 07:54 04/01/17 07:54 04/01/17 07:54 04/01/17 07:54 04/01/17 09:10 General appearance: Present: cooperative, A&O X 3, no acute distress, answers questions appropriately - Head Head exam: Present: atraumatic, normal inspection - Respiratory Respiratory exam: Present: decreased breath sounds. Absent: rales, respiratory distress, rhonchi, wheezes - Cardiovascular Cardiovascular exam: Present: RRR, +S1, +S2. Absent: systolic murmur - GI/Abdominal GI/Abdominal exam: Present: soft. Absent: rebound, rigid - Extremities Exam Extremities exam: Present: pedal edema (1+). Absent: calf tenderness, tenderness - Back Exam Back exam: Absent: CVA tenderness (L), CVA tenderness (R) - Psychiatric Psychiatric exam: Present: normal affect, normal mood - VTE Documentation of Mechanical Device: Intermittent pneumatic compression device
--- NOTE | 2017-04-01 11:17 | Physician Discharge Referral ---
ExtendedCare Referral Info Transfer To: ECF Provider in Charge after Transfer: PCP Institutional Level of Care: Skilled - Diagnosis (1) S/P exploratory laparotomy Status: Acute (2) Incarcerated femoral hernia Status: Acute (3) Small bowel obstruction Status: Resolved (4) Acute respiratory failure with hypoxia Status: Acute (5) COPD exacerbation Status: Acute (6) Squamous cell carcinoma of left lung Status: Acute (7) Anasarca Status: Acute (8) Protein calorie malnutrition Status: Acute (9) DVT prophylaxis Status: Acute (10) Electrolyte abnormality Status: Acute - Transfer Medications Prescriptions: Cefdinir [Omnicef] 300 mg PO BID #4 capsule Furosemide [Lasix] 20 mg PO BID #30 tablet LORazepam [Ativan] 0.5 mg PO BID PRN #15 tablet PRN Reason: Anxiety OxyCODONE Immed Rel [Roxicodone 5 MG] 5 mg PO Q6H PRN #20 tablet PRN Reason: Pain Home Medications: Acetaminophen [Tylenol] 500 mg PO Q6HR PRN 09/03/15 [History] Aspirin 325 mg PO DAILY 09/03/15 [History] Latanoprost [Xalatan] 1 drop RIGHT EYE HS 09/03/15 [History] Loperamide [Imodium] 2 mg PO Q4HR PRN #90 capsule 10/28/16 [Rx] Ondansetron [Zofran] 8 mg PO Q8HR PRN #90 tablet 10/28/16 [Rx] Dexamethasone [Decadron] 4 mg PO BID #36 tab 03/03/17 [Rx] Prochlorperazine Maleate [Compazine] 10 mg PO Q8HR PRN #90 tablet 03/03/17 [Rx] Cefdinir [Omnicef] 300 mg PO BID #4 capsule 04/01/17 [Rx] Furosemide [Lasix] 20 mg PO BID #30 tablet 04/01/17 [Rx] LORazepam [Ativan] 0.5 mg PO BID PRN #15 tablet 04/01/17 [Rx] OxyCODONE Immed Rel [Roxicodone 5 MG] 5 mg PO Q6H PRN #20 tablet 04/01/17 [Rx] Allergies/Adverse Reactions: 3 Allergy/AdvReac Type Severity Reaction Status Date / Time Penicillins Allergy Hives Verified 11/01/17 17:20 Sulfa (Sulfonamide Allergy Hives Verified 03/16/17 17:20 Antibiotics) eggs Allergy See Uncoded 03/16/17 17:20 Comments dairy products AdvReac Flatulence Uncoded 03/16/17 17:20 - Respiratory Orders Smoking Cessation: Smoking cessation has been advised. For more information, call the [place] Tobacco Quit Line at 5-773-QCRQ-NOW. CERTIFICATION: I certify that the transfer of the above named patient to an Extended Care Facility is necessary for the continuing treatment of the diagnosis listed. The above information is true and accurate reflection of patient's current condition. Confidential - Redisclosure prohibited without a patient's written consent.
== END 2017-04-01 14:47 | DRG 329 ==
LOC: EMEROO 15:59 → 2ANU 15:59 → SUATTDRO 20:43 → 2ANU 21:07
PROVIDERS: ADMIT Nurse Practitioner; ATTEND Family Medicine